=== PATIENT | male | born 1950 | race Caucasian/White ===

== ENCOUNTER 2021-07-20 11:56 | Emergency (ER) | payer OTHER ==
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
[2021-07-20 12:40] LABS: BASOPHILS # (AUTO) 0.1 10^3/uL (0.0-0.1); BASOPHILS % (AUTO) 0.6 %; EOSINOPHILS % (AUTO) 0.3 %; HCT - HEMATOCRIT 45.1 % (42.0-52.0); HGB - HEMOGLOBIN 14.6 g/dL (14.0-18.0); LYMPHOCYTES # (AUTO) 0.8 10^3/uL (1.5-3.5); LYMPHOCYTES % (AUTO) 8.3 %; MEAN CORPUSCULAR HEMOGLOBIN 30.9 pg (27.0-31.0); MEAN CORPUSCULAR HGB CONC 32.4 g/dL (32.0-36.0); MEAN CORPUSCULAR VOLUME 95.6 fL (80.0-94.0); MONOCYTES % (AUTO) 10.5 %; NEUTROPHILS # (AUTO) 7.3 10^3/uL (1.5-6.6); NEUTROPHILS % (AUTO) 79.9 %; PLT - PLATELET COUNT 194 10^3/uL (130-450); RED BLOOD COUNT 4.72 10^6/uL (4.70-6.10); RED CELL DISTRIBUTION WIDTH 13.4 % (12.0-15.0); WHITE BLOOD COUNT 9.1 x10^3/uL (4.8-10.8)
[2021-07-20 12:51] LABS: ALBUMIN 4.5 g/dL (3.2-5.5); ALBUMIN/GLOBULIN RATIO 1.6 (1.0-2.2); BILIRUBIN,TOTAL 1.1 mg/dL (0.2-1.0); CALCIUM 10.1 mg/dL (8.5-10.3); CREATININE 1.1 mg/dL (0.6-1.2); POTASSIUM 3.9 mmol/L (3.5-5.0); TOTAL PROTEIN 7.3 g/dL (6.7-8.2)
--- NOTE | 2021-07-20 13:31 | XRAY Report ---
PROCEDURE: Chest 1 View X-Ray INDICATIONS: Chest Pain TECHNIQUE: One view of the chest was acquired. COMPARISON: Prior chest x-ray report 11/30/2009. Images not available. FINDINGS: Surgical changes and devices: None. Lungs and pleura: No pleural effusions or pneumothorax. Lungs are clear. Mediastinum: Mediastinal contours appear normal. Heart size is normal. Atherosclerotic vascular ca lcification noted in the aortic arch. Bones and chest wall: No suspicious bony lesions. Overlying soft tissues appear unremarkable. IMPRESSION: No acute cardiopulmonary findings Reviewed by: Hilton Bullock MD on 07/20/2021 12:30 PM [place] Approved by: Hilton Bullock MD on 07/20/2021 12:30 PM [facility] Station ID: [id number]
[2021-07-20 13:41] LABS: INR 1.6 (0.8-1.2); PT - PROTHROMBIN TIME 17.8 secs (9.9-12.6)
[2021-07-20] MEDS ORDERED: HEPARIN 25000UNITS/500ML (D5W) 25,000 UNIT/500 ML BAG IV SCH (14:00)
[2021-07-20 14:51] LABS: B. PARAPERTUSSIS- RESP PCR PAN NOT DETECTED; B. PERTUSSIS- RESP PCR PANEL NOT DETECTED; C. PNEUMONIAE- RESP PCR PANEL NOT DETECTED; CORONAVIRUS 229E-RESP PCR NOT DETECTED; CORONAVIRUS HKU1-RESP PCR NOT DETECTED; CORONAVIRUS NL63-RESP PCR NOT DETECTED; CORONAVIRUS OC43-RESP PCR NOT DETECTED; HUMAN METAPNEUMOVIRUS NOT DETECTED; INFLUENZA A- RESP PCR PANEL NOT DETECTED; INFLUENZA B - RESP PCR PANEL NOT DETECTED; M. PNEUMONIAE- RESP PCR PANEL NOT DETECTED; PARAINFLUENZA VIRUS 1 NOT DETECTED; PARAINFLUENZA VIRUS 2 NOT DETECTED; PARAINFLUENZA VIRUS 3 NOT DETECTED; PARAINFLUENZA VIRUS 4 NOT DETECTED; RHINOVIRUS/ENTEROVIRUS DETECTED; RSV- RESP PCR PANEL NOT DETECTED; SARS-CoV-2 -RESP PCR PANEL NOT DETECTED
[2021-07-20 15:39] LABS: BILIRUBIN,URINE NEGATIVE (NEGATIVE); GLUCOSE, URINE (UA) NEGATIVE (NEGATIVE); KETONES,URINE (UA) 15 mg/dL (NEGATIVE); LEUKOCYTE ESTERASE, URINE NEGATIVE (NEGATIVE); NITRITE,URINE NEGATIVE (NEGATIVE); OCCULT BLOOD,URINE TRACE-INTA (NEGATIVE); PROTEIN,URINE NEGATIVE (NEGATIVE); UROBILINOGEN,URINE 0.2 (NORMAL) E.U./dL (NORMAL)
[2021-07-20 15:40] LABS: CLARITY,URINE CLEAR (CLEAR)
[2021-07-20 17:10] VITALS: BP 125/86
== END 2021-07-20 17:50 | disposition short-term general hospital (02) ==
LOC: ED 11:56
DX: I21.4 Non-ST elevation (NSTEMI) myocardial infarction (principal); I48.11 Longstanding persistent atrial fibrillation; I10 Essential (primary) hypertension; C85.90 Non-Hodgkin lymphoma, unspecified, unspecified site; Z20.822 Contact with and (suspected) exposure to COVID-19; Z79.899 Other long term (current) drug therapy
CPT/HCPCS: 0202U; 36415; 71045; 80053; 81003; 83690; 83880; 84484; 85025; 85610; 93005; 96365; 96366; 96376; 99284; 99285; 81001; 87086

== ENCOUNTER 2021-07-20 17:51 | Outpatient (CLI) | payer OTHER | END 2021-07-20 17:52 | disposition short-term general hospital (02) | LOC: EMS 17:51 | PROVIDERS: ATTEND Registered Nurse | DX: I21.4 Non-ST elevation (NSTEMI) myocardial infarction (principal) | CPT/HCPCS: A0425; A0426 ==

== ENCOUNTER 2021-07-30 11:08 | Emergency (ER) | payer OTHER ==
[2021-07-30] MEDS ORDERED: SODIUM CHLORIDE 0.9% 500 ML IV STA (12:00)
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
[2021-07-30 12:34] LABS: BASOPHILS # (AUTO) 0.1 10^3/uL (0.0-0.1); BASOPHILS % (AUTO) 0.6 %; EOSINOPHILS # (AUTO) 0.2 10^3/uL (0.0-0.7); EOSINOPHILS % (AUTO) 1.9 %; HCT - HEMATOCRIT 43.5 % (42.0-52.0); HGB - HEMOGLOBIN 14.1 g/dL (14.0-18.0); LYMPHOCYTES # (AUTO) 1.4 10^3/uL (1.5-3.5); LYMPHOCYTES % (AUTO) 12.8 %; MEAN CORPUSCULAR HEMOGLOBIN 30.5 pg (27.0-31.0); MEAN CORPUSCULAR HGB CONC 32.4 g/dL (32.0-36.0); MEAN CORPUSCULAR VOLUME 94.2 fL (80.0-94.0); MEAN PLATELET VOLUME 10.1 fL (7.4-11.4); MONOCYTES # (AUTO) 0.9 10^3/uL (0.0-1.0); MONOCYTES % (AUTO) 8.3 %; NEUTROPHILS % (AUTO) 75.6 %; PLT - PLATELET COUNT 200 10^3/uL (130-450); RED BLOOD COUNT 4.62 10^6/uL (4.70-6.10); RED CELL DISTRIBUTION WIDTH 13.3 % (12.0-15.0); WHITE BLOOD COUNT 10.6 x10^3/uL (4.8-10.8)
--- NOTE | 2021-07-30 12:42 | XRAY Report ---
PROCEDURE: Chest 1 View X-Ray INDICATIONS: lightheaded s/p cardiac stent TECHNIQUE: One view of the chest was acquired. COMPARISON: 07/20/2021 FINDINGS: Surgical changes and devices: None. Lungs and pleura: No pleural effusions or pneumothorax. Lungs are clear. Mediastinum: Mediastinal contours appear normal. Heart size is normal. Bones and chest wall: No suspicious bony lesions. Overlying soft tissues appear unremarkable. IMPRESSION: Chest without acute cardiopulmonary abnormalities. Reviewed by: Ceasar Hood MD on 07/30/2021 12:41 PM PST Approved by: Ceasar Hood MD on 07/30/2021 12:41 PM PST Station ID: [id number]
[2021-07-30 12:49] LABS: ALBUMIN/GLOBULIN RATIO 1.5 (1.0-2.2); CALCIUM 9.3 mg/dL (8.5-10.3); POTASSIUM 3.2 mmol/L (3.5-5.0); TOTAL PROTEIN 6.6 g/dL (6.7-8.2)
[2021-07-30 13:30] VITALS: BP 146/89
== END 2021-07-30 13:34 | disposition home or self-care (01) ==
LOC: ED 11:08
DX: R42 Dizziness and giddiness (principal); I48.91 Unspecified atrial fibrillation; Z95.5 Presence of coronary angioplasty implant and graft; Z91.138 Patient's unintentional underdosing of medication regimen for other reason
CPT/HCPCS: 36415; 80053; 85025; 93005; 96360; 99283

== ENCOUNTER 2022-06-19 14:33 | Outpatient (CLI) | payer OTHER | END 2022-06-19 14:34 | disposition critical access hospital (66) | LOC: EMS 14:33 | DX: R53.1 Weakness (principal); R26.81 Unsteadiness on feet; W18.39XA Other fall on same level, initial encounter; Y93.01 Activity, walking, marching and hiking; Y92.414 Local residential or business street as the place of occurrence of the external cause; Z79.01 Long term (current) use of anticoagulants ==

== ENCOUNTER 2022-06-19 14:41 | Emergency (ER) | payer OTHER ==
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
[2022-06-19 15:00] LABS: BASOPHILS % (AUTO) 0.6 %; EOSINOPHILS % (AUTO) 0.5 %; HCT - HEMATOCRIT 43.6 % (42.0-52.0); HGB - HEMOGLOBIN 13.8 g/dL (14.0-18.0); LYMPHOCYTES # (AUTO) 0.8 10^3/uL (1.5-3.5); LYMPHOCYTES % (AUTO) 12.8 %; MEAN CORPUSCULAR HEMOGLOBIN 29.9 pg (27.0-31.0); MEAN CORPUSCULAR HGB CONC 31.7 g/dL (32.0-36.0); MEAN CORPUSCULAR VOLUME 94.4 fL (80.0-94.0); MEAN PLATELET VOLUME 10.7 fL (7.4-11.4); MONOCYTES # (AUTO) 0.6 10^3/uL (0.0-1.0); MONOCYTES % (AUTO) 9.2 %; NEUTROPHILS # (AUTO) 4.9 10^3/uL (1.5-6.6); NEUTROPHILS % (AUTO) 76.4 %; PLT - PLATELET COUNT 165 10^3/uL (130-450); RED BLOOD COUNT 4.62 10^6/uL (4.70-6.10); RED CELL DISTRIBUTION WIDTH 16.2 % (12.0-15.0); WHITE BLOOD COUNT 6.4 x10^3/uL (4.8-10.8)
[2022-06-19 15:13] LABS: ALBUMIN 4.4 g/dL (3.2-5.5); ALBUMIN/GLOBULIN RATIO 1.6 (1.0-2.2); BILIRUBIN,TOTAL 1.3 mg/dL (0.2-1.0); CALCIUM 9.7 mg/dL (8.5-10.3); CREATININE 1.1 mg/dL (0.6-1.2); MAGNESIUM 2.1 mg/dL (1.7-2.8); POTASSIUM 3.5 mmol/L (3.5-5.0); TOTAL PROTEIN 7.1 g/dL (6.7-8.2)
[2022-06-19] MEDS ORDERED: iohexoL-300 100 ML VIAL ONE (15:27)
[2022-06-19] MEDS ORDERED: iohexoL-300 100 ML VIAL IVP ONE (15:59)
--- NOTE | 2022-06-19 16:13 | CT Report ---
PROCEDURE: Abdomen/Pelvis W INDICATIONS: IV only, abd pain CONTRAST: IV CONTRAST: Optiray 320 ml: 100 PO CONTRAST: *NO PO CONTRAST TECHNIQUE: After the administration of intravenous contrast, 5 mm thick sections acquired from the diaphragms to the symphysis. 5 mm thick coronal and sagittal reformats were acquired. For radiation dose reducti on, the following was used: automated exposure control, adjustment of mA and/or kV according to mitzy ent size. COMPARISON: None. FINDINGS: Image quality: Excellent. ABDOMEN: Lung bases: Patchy pulmonary radiopacities are partially visualized at the anterior base of the right lung. Left lung is clear. Heart is normal size. No pericardial effusion. Solid organs: Liver and spleen are normal in size and enhancement. Gallbladder is unremarkable Rob iary system is non dilated. Pancreas enhances normally. No adrenal nodules. Kidneys demonstrate no rmal size and enhancement, without hydronephrosis. Peritoneum and bowel: Bowel loops demonstrate normal wall thickness and caliber. There are scattered colonic diverticular outpouchings. No mucosal thickening or pericolonic fat stranding to suggest acu te diverticulitis. No free fluid or air. The appendix is not visualized; however there is no fat stra nding or right lower quadrant free fluid to suggest acute appendicitis. Nodes and vessels: No retroperitoneal or mesenteric adenopathy by size criteria. Aorta and inferior vena cava are normal in size. Miscellaneous: No ventral hernias. PELVIS: Genitourinary: Bladder wall thickness is normal. Miscellaneous: No inguinal adenopathy. There is a small right and a moderate left fat-containing ing uinal hernia. Bones: No suspicious bony lesions. No vertebral body compression fractures. IMPRESSION: 1. No acute intra-abdominal findings. Diverticulosis. No acute diverticulitis. Her graft 2. The appendix is not visualized; however there are no ancillary findings to suggest acute appendici tis. Reviewed by: Carol Busby MD on 06/19/2022 4:12 PM PDT Approved by: Carol Busby MD on 06/19/2022 4:12 PM PDT Station ID: [id number]
--- NOTE | 2022-06-19 16:22 | CT Report ---
PROCEDURE: HEAD WO INDICATIONS: head inj TECHNIQUE: Noncontrast 4.5 mm thick angled axial sections acquired from the foramen magnum to the vertex. For r adiation dose reduction, the following was used: automated exposure control, adjustment of mA and/or kV according to patient size. COMPARISON: None. FINDINGS: Image quality: Excellent. CSF spaces: Basal cisterns are patent. No extra-axial fluid collections. Ventricles are normal in size and shape. Brain: No midline shift. No intracranial masses or hemorrhage. Blanca-white matter interface is norm al. There is global volume loss and extensive deep and periventricular white matter changes. Skull and face: Calvarium and visualized facial bones are intact, without suspicious lesions. Sinuses: Visualized sinuses and mastoids are clear. IMPRESSION: 1. No acute intracranial findings. 2. Findings likely associated with chronic microvascular ischemic changes. Reviewed by: Carol Busby MD on 06/19/2022 4:20 PM PDT Approved by: Carol Busby MD on 06/19/2022 4:20 PM PDT Station ID: [id number]
[2022-06-19 17:01] VITALS: BP 164/107
== END 2022-06-19 17:06 | disposition home or self-care (01) ==
LOC: EDUNIT# → ED 14:41
DX: E86.0 Dehydration (principal); R53.1 Weakness; S50.12XA Contusion of left forearm, initial encounter; S50.11XA Contusion of right forearm, initial encounter; W17.89XA Other fall from one level to another, initial encounter; Y93.01 Activity, walking, marching and hiking; Y92.828 Other wilderness area as the place of occurrence of the external cause; R10.13 Epigastric pain; I48.91 Unspecified atrial fibrillation; I49.3 Ventricular premature depolarization; I45.10 Unspecified right bundle-branch block; I25.10 Atherosclerotic heart disease of native coronary artery without angina pectoris; Z95.5 Presence of coronary angioplasty implant and graft; Z85.72 Personal history of non-Hodgkin lymphomas; Z79.899 Other long term (current) drug therapy
CPT/HCPCS: 36415; 70450; 74177; 80053; 83735; 85025; 93005; 99282; 99284; Q9967

== ENCOUNTER 2023-01-16 12:53 | Outpatient (CLI) | payer OTHER | END 2023-01-16 23:59 | disposition critical access hospital (66) | LOC: EMS 12:53 | DX: R42 Dizziness and giddiness (principal); R47.81 Slurred speech; R53.83 Other fatigue | CPT/HCPCS: A0425; A0429 ==

== ENCOUNTER 2023-01-16 13:18 | Inpatient (IN) | payer OTHER ==
--- NOTE | 2023-01-16 13:19 | ED Physician Documentation ---
PD HPI FOCAL NEURO - Stated complaint Stated Complaint: DIZZINESS - History obtained from History obtained from: Patient, EMS (Patient not able to give history himself due to altered mentation. EMS states they were called for patient at the library with altered mentation and slurred speech. They found him undulating level of alertness. No focal weakness.) - History of Present Illness Timing - onset: Today (Unclear how long the symptoms have been undulating. He was noted at the library to seem reasonable and then be sleepy/lethargic approximately 1230. EMS notes he was alert on route here and talkative. Now seems sleepy/ slurred speech again.) Timing - duration: Hours Timing - details: Waxing and waning Severity of deficit: Moderate Weakness: No: Face, Arm, Leg Numbness: No: Face, Arm, Leg Associated symptoms: No: Nausea / vomiting, Head injury (he denies head injury, but is drowsy so not clearly reliable answer.) Review of Systems Constitutional: denies: Fever, Chills Nose: denies: Rhinorrhea / runny nose, Congestion Throat: denies: Sore throat Respiratory: reports: Dyspnea (mild), Cough. denies: Wheezing GI: denies: Abdominal Pain, Nausea, Vomiting, Diarrhea Neurologic: reports: Generalized weakness (onset today). 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 Sees oncology at [facility]. ) - Past Surgical History Cardiovascular: Coronary stent - Present Medications Home Medications: Ambulatory Orders Medication Instructions Recorded Confirmed Albuterol Sulf [Ventolin Hfa 1 - 2 puffs INH Q4HR PRN #1 each 01/16/23 Inhaler] cephALEXin [Keflex] 500 mg PO TID 5 Days #15 cap 01/16/23 - Allergies Allergies/Adverse Reactions: Allergies Allergy/AdvReac Type Severity Reaction Status Date / Time No Known Drug Allergies Allergy Verified 07/30/21 11:25 - Social History Does the pt smoke?: No Smoking Status: Never smoker PD ED PE NORMAL - Vitals Vital signs reviewed: Yes - General General: Well developed/nourished. No: Alert and oriented X 3 (somnolent but rousable to tactile and voice. Some slurring of speech which seems alertness related and not dysarthria. ) - HEENT HEENT: Atraumatic, Pharynx benign - Neck Neck: Supple, no meningeal sign, No adenopathy, No bruit - Cardiac Cardiac: RRR, No murmur - Respiratory Respiratory: Clear bilaterally - Abdomen Abdomen: Soft, Non tender, Non distended - Derm Derm: Normal color, Warm and dry - Extremities Extremities: Normal ROM s pain, No edema, No calf tenderness / cord - Neuro Neuro: Alert and oriented X 3, No motor deficit, Normal speech NIHSS - Level of Consciousness Level of consciousness: (1) Not alert, but arousable by minor stimulation to obey, or answer LOC Questions: (1) Answers one Q correctly LOC Commands: (0) Performs both correctly - Visual Visual: (0) No loss - Facial Palsy Facial Palsy: (0) Normal, symmetrical movement - Motor Arms (both separate) Motor Arm (right): (0) No drift Motor Arm (left): (0) No drift - Motor Legs (both separate) Motor Leg (right): (0) No drift Motor Leg (left): (0) No drift - Limb Ataxia Limb Ataxia: (2) Present in 2 limbs - Sensory Sensory: (0) Normal - Best Language Best Language: (0) No aphasia - Dysarthria Dysarthria: (1) Ekdf-vs-vgypppjz dysarthria - Extinction and Inattention (formally neg Extinction and inattention: (0) No abnormality Results - Vitals Vitals: Vital Signs - 24 hr 01/16/23 01/16/23 01/16/23 13:25 14:51 16:00 Temperature 36.6 C Heart Rate 73 73 69 Respiratory 18 18 16 Rate Blood Pressure 151/117 H 174/95 H 172/135 H O2 Saturation 96 97 98 01/16/23 01/16/23 16:27 17:00 Temperature Heart Rate 58 L 77 Respiratory 16 16 Rate Blood Pressure 168/126 H 205/103 H O2 Saturation 100 100 Oxygen O2 Source Room air - Labs Labs: Laboratory Tests 01/16/23 01/16/23 01/16/23 14:06 14:13 14:13 WBC 5.4 RBC 4.75 Hgb 14.4 Hct 44.5 MCV 93.7 MCH 30.3 MCHC 32.4 RDW 14.0 Plt Count 153 MPV 10.0 Neut # (Auto) 3.5 Lymph # (Auto) 1.1 L Tucker # (Auto) 0.8 Eos # (Auto) 0.0 Baso # (Auto) 0.0 Absolute Nucleated RBC 0.00 Nucleated RBC % 0.0 Sodium 135 Potassium 3.9 Chloride 101 Carbon Dioxide 25 Anion Gap 9.0 BUN 16 Creatinine 1.1 Estimated GFR (MDRD) 65 L Glucose 108 H POC Whole Bld Glucose Calcium 8.8 Magnesium 1.9 Total Bilirubin 1.0 AST 21 ALT 19 Alkaline Phosphatase 72 Total Protein 6.5 L Albumin 4.0 Globulin 2.5 Albumin/Globulin Ratio 1.6 Lipase 53 H TSH Urine Color YELLOW Urine Clarity SL. CLOUDY Urine pH 6.5 Ur Specific [place] <=1.005 Urine Protein NEGATIVE Urine Glucose (UA) NEGATIVE Urine Ketones NEGATIVE Urine Occult Blood TRACE-INTA Urine Nitrite NEGATIVE Urine Bilirubin NEGATIVE Urine Urobilinogen 0.2 (NORMAL) Ur Leukocyte Esterase LARGE H Urine RBC 0-5 Urine WBC >25 H Ur Squamous Epith Cells NONE SEEN Urine Bacteria Few Ur Microscopic Review INDICATED Urine Culture Comments INDICATED Urine Opiates Screen NEGATIVE Ur Oxycodone Screen NEGATIVE Urine Methadone Screen NEGATIVE Ur Propoxyphene Screen NEGATIVE Ur Barbiturates Screen NEGATIVE Ur Tricyclics Screen NEGATIVE Ur Phencyclidine Scrn NEGATIVE Ur Amphetamine Screen NEGATIVE U Methamphetamines Scrn NEGATIVE U Benzodiazepines Scrn NEGATIVE Urine Cocaine Screen NEGATIVE U Cannabinoids Screen NEGATIVE Ethyl Alcohol < 5.0 01/16/23 01/16/23 14:13 14:13 WBC RBC Hgb Hct MCV MCH MCHC RDW Plt Count MPV Neut # (Auto) Lymph # (Auto) Tucker # (Auto) Eos # (Auto) Baso # (Auto) Absolute Nucleated RBC Nucleated RBC % Sodium Potassium Chloride Carbon Dioxide Anion Gap BUN Creatinine Estimated GFR (MDRD) Glucose POC Whole Bld Glucose 88 Calcium Magnesium Total Bilirubin AST ALT Alkaline Phosphatase Total Protein Albumin Globulin Albumin/Globulin Ratio Lipase TSH 4.16 Urine Color Urine Clarity Urine pH Ur Specific [place] Urine Protein Urine Glucose (UA) Urine Ketones Urine Occult Blood Urine Nitrite Urine Bilirubin Urine Urobilinogen Ur Leukocyte Esterase Urine RBC Urine WBC Ur Squamous Epith Cells Urine Bacteria Ur Microscopic Review Urine Culture Comments Urine Opiates Screen Ur Oxycodone Screen Urine Methadone Screen Ur Propoxyphene Screen Ur Barbiturates Screen Ur Tricyclics Screen Ur Phencyclidine Scrn Ur Amphetamine Screen U Methamphetamines Scrn U Benzodiazepines Scrn Urine Cocaine Screen U Cannabinoids Screen Ethyl Alcohol PD Medical Decision Making - ED course Complexity details: reviewed results, considered differential (But isThe patient seems more lethargic and sleepy rousable to just tactile stimulus and calling his name. I do not see a focal deficit at this time. He does have slurred speech but seems more related to alertness.), d/w patient ED course: The patient does have altered mentation. No unilateral findings. However it is appropriate to scan his head for signs of bleeding or swelling or injury as well as any vascular occlusions. We will also check metabolic aspect such as sodium and blood sugar and alcohol level as well as a U tox. The patient had CT of the head with angiography. The timing was apparently slightly off but the radiologist reads it as no obvious stenoses or blockages. There are some mild stenoses in the intracranial portion of the carotid. No signs of bleeding or mass effect. Reevaluation the patient upon returning from that shows him to be awake and alert and conversant. No focal neurodeficits. The previous noted somnolence and lethargy is improved and he is fully conversant and talking details of the day. He states he noted initially feeling off balance and then a bit confused while going to the [employer] for groceries and then more so going to the library. That was when EMS was called. At this point he has no neurodeficits. However I do not have an alternate explanation for the symptoms he had. If presented not as much as TIA or stroke given the somnolence but still would be a consideration. At this point some blood tests are still pending. His alcohol level is 0 and he denies any substance use. He states he has had some congestion and had used an expectorant but denied any cough medicine or NyQuil or dextromethorphan containing medications. The patient lives alone. At this point he seems well alert but had been having undulating level of alertness over the last few hours. I do not feel comfortable discharging at this point without longer. Of normalcy. Other consideration is are MRI is unavailable today but whether an MRI would be fully conclusive as far as small stroke. Again not sure whether to count this as a TIA type episode but there was no other obvious cause. Recheck of the patient at 1645 shows him to still be awake and alert and conversant without any focal neural deficits. He is complaining a little bit of some shortness of breath and I listen to him and there is some mild expiratory scattered wheezes. He states he had a some mild cough and congestion recently. We can get a chest x-ray to evaluate and also give a albuterol treatment. He is not normally asthmatic @1707, I talked with the patient again. He is still awake and conversant. He is talking on the phone with a friend. He states the person would be able to come pick him up. He has not had any altered mentation or abnormal vitals over the last many hours. He did have a mild dyspnea. It he states he does have allergies. It is possible he may be developing a mild viral illness or it may be the allergies. He does not usually use an inhaler. I can prescribe 1. There was a suggestion of bladder infection. Shared decision was to empirically treat for now pending the urine culture. I asked about his medications. He does not have a list but he states his medications include blood pressure medicine, apixaban blood thinner, cholesterol medicine, and a medication for suppressive for lymphoma. He denies in particular any seizure medicines, anxiolytics, sleep medicines, and again no recreational drug use that might have accounted for the sedative symptoms he had earlier. At this point it has been a reasonable period of time without any abnormal alertness or return of symptoms. He is comfortable heading home. I feel its been appropriately long enough with a normal exam. His blood pressure most recent reading is now a bit elevated. It had been good earlier. He had not had his blood pressure medicines this morning. I do not feel this is related and he should take his usual medicines when he gets home. With regard to the potential of TIA, even though it does not sound that way necessarily, he is already maximally treated with a DOAC and anticholesterol medicine etc. Assessed the patient with thoughts of discharge home. However ambulated him bedside and in the room showed a fairly unsteady stance and gait. Still no lateralized weakness. He is fully awake and conversant. However he states this is quite unusual for him and he typically walks about a mile a day. At this point he does not seem stable for discharge. We will have him here in the ER. There are no beds available at our hospital so we will do an observation type process maintaining in the ER with intention of MRI brain tomorrow to look for stroke injury and also to evaluate with PT and social work. Departure - Departure Clinical Impression: Bacteriuria with pyuria, Acute dyspnea, Ataxia Altered mental status Qualifiers: Altered mental status type: delirium Qualified Code(s): R41.0 - Disorientation, unspecified Condition: Stable Record reviewed to determine appropriate education?: Yes Instructions: ED Altered Loc Prescriptions: Albuterol Sulf [Ventolin Hfa Inhaler] 1 - 2 puffs INH Q4HR PRN #1 each PRN Reason: Shortness Of Air/Wheezing cephALEXin [Keflex] 500 mg PO TID 5 Days #15 cap Comments: Its unclear the cause of your symptoms earlier. We do not have any signs or findings to suggest a more serious problem. No signs of intracranial bleeding, blood flow blockage, tumors etc. Your blood test did not show any abnormality to account for your altered mentation. There was not any medications or such that you took that may give you the symptoms. At this point I cannot account for it. Perhaps it was a level of dehydration or such. Be sure to stay hydrated and continue usual medications. Your blood pressure initially was good here but has crept up higher and likely relates to not having had your morning medicines. Its okay to take those when you get home. There was a suggestion of bladder infection. We can go with some antibiotics pending the urine culture. You are having some wheezing. This could be allergies. I prescribed an inhaler to use periodically if needed. I do not feel either of these are significant enough to have accounted for your symptoms earlier. Follow-up with your primary care. Return if recurring episodes of symptoms or anything else of concern. However at this point you seem to have been doing well for long enough a feel it less likely and unlikely that he will have further problems today tomorrow etc. I sent your prescriptions to [facility] pharmacy.
[2023-01-16 14:11] LABS: MUDS CUTOFF CONCENTRATIONS CUTOFF CONC BELOW:
[2023-01-16 14:14] LABS: BILIRUBIN,URINE NEGATIVE (NEGATIVE); GLUCOSE, URINE (UA) NEGATIVE (NEGATIVE); KETONES,URINE (UA) NEGATIVE (NEGATIVE); LEUKOCYTE ESTERASE, URINE LARGE (NEGATIVE); NITRITE,URINE NEGATIVE (NEGATIVE); OCCULT BLOOD,URINE TRACE-INTA (NEGATIVE); PH,URINE 6.5 PH (5.0-7.5); PROTEIN,URINE NEGATIVE (NEGATIVE); UROBILINOGEN,URINE 0.2 (NORMAL) E.U./dL (NORMAL)
[2023-01-16 14:16] LABS: CLARITY,URINE SL. CLOUDY (CLEAR)
[2023-01-16 14:17] LABS: BASOPHILS % (AUTO) 0.4 %; EOSINOPHILS % (AUTO) 0.2 %; HCT - HEMATOCRIT 44.5 % (42.0-52.0); HGB - HEMOGLOBIN 14.4 g/dL (14.0-18.0); LYMPHOCYTES # (AUTO) 1.1 10^3/uL (1.5-3.5); LYMPHOCYTES % (AUTO) 19.9 %; MEAN CORPUSCULAR HEMOGLOBIN 30.3 pg (27.0-31.0); MEAN CORPUSCULAR HGB CONC 32.4 g/dL (32.0-36.0); MEAN CORPUSCULAR VOLUME 93.7 fL (80.0-94.0); MONOCYTES # (AUTO) 0.8 10^3/uL (0.0-1.0); MONOCYTES % (AUTO) 13.8 %; NEUTROPHILS # (AUTO) 3.5 10^3/uL (1.5-6.6); NEUTROPHILS % (AUTO) 65.3 %; PLT - PLATELET COUNT 153 10^3/uL (130-450); RED BLOOD COUNT 4.75 10^6/uL (4.70-6.10); WHITE BLOOD COUNT 5.4 x10^3/uL (4.8-10.8)
--- NOTE | 2023-01-16 14:20 | CT Report ---
PROCEDURE: ANGIO HEAD W/WO INDICATIONS: altered mental status/lethargic CONTRAST: 160ml omni 300 TECHNIQUE: Precontrast 4.5 mm thick angled axial sections acquired from the foramen magnum to the vertex. Afte r the administration of intravenous contrast, 1 mm thick sections acquired through the [place] of Will is. Postcontrast 4.5 mm thick sections then re-acquired from the foramen magnum to the vertex. 3-di mensional vtrufms-aythzblfa-odxtaqctde (MIP) and/or volume rendering reformats were acquired of the c entral intracranial vasculature. For radiation dose reduction, the following was used: automated ex posure control, adjustment of mA and/or kV according to patient size. COMPARISON: 06/19/2022 FINDINGS: Image quality: Study is limited due to timing of intravascular contrast administration. There is limi juan francisco opacification of the intracranial arterial vasculature. Anterior circulation: Intracranial internal carotid arteries are normal in size and flow. The flow within the paired anterior cerebral arteries is visualized. The flow within the middle cerebral estela chloe is visualized and symmetric. The anterior communicating artery is seen. No aneurysms are seen. Advanced atherosclerotic calcifications are noted in the intracranial segments of the internal carot id arteries as well as the vertebral arteries. Atherosclerotic calcifications of the middle cerebral arteries are also noted. Moderate stenosis identified in the bilateral intracranial segments of the i nternal carotid arteries within the cavernous and supraclinoid segments. Posterior circulation: Visualized portions of the vertebral arteries demonstrate normal caliber, and join to form a normal appearing basilar artery. Flow within the posterior cerebral arteries is norm al and symmetric. No aneurysms are seen. CSF spaces: Ventricles are normal in size and shape. Basal cisterns are patent. No extra-axial flu id collections. Brain: No midline shift. No intracranial masses or hemorrhage. No mass effect. Blanca-white matter i nterface is normal. There cerebral volume loss for age with resultant ventricular and sulcal prominen ce. There are periventricular and deep white matter chronic small vessel ischemic changes. Extensive, dense atherosclerotic calcifications are noted in the intracranial segments of the bilateral interna l carotid arteries as well as the vertebral arteries. These do not appear significantly changed. Skull and face: Calvarium and facial bones appear intact, without suspicious lesions. Sinuses: Visualized sinuses and mastoids are clear. IMPRESSION: CT head without acute intracranial abnormalities. Moderate age-related senescent changes and sequela of chronic small vessel ischemic disease. Extensive atherosclerotic vascular calcification seen throughout the intracranial arterial vasculatur e. Limited evaluation of the intracranial arterial vasculature secondary to timing of contrast administr ation. There is moderate stenosis involving the intracranial segments of the internal carotid arterie s. No evidence to suggest occlusion. No aneurysm or dissection identified. Reviewed by: Ceasar Hood MD on 01/16/2023 2:18 PM PDT Approved by: Ceasar Hood MD on 01/16/2023 2:18 PM PDT Station ID: [id number]
--- NOTE | 2023-01-16 14:26 | CT Report ---
PROCEDURE: ANGIO NECK W INDICATIONS: altered mental status, slurred speech CONTRAST: 160ml omni 300 TECHNIQUE: After the administration of intravenous contrast, 1.5 mm axial sections acquired from the aortic arch to the [place] of Franz. Coronal 3-D maximum intensity projection (MIP) and/or volume rendering ref ormats were then performed. For radiation dose reduction, the following was used: automated exposur e control, adjustment of mA and/or kV according to patient size. COMPARISON: None. FINDINGS: Image quality: Diagnostic. Carotid system: The great vessels demonstrate a conventional anatomy as they arise from the aortic a rch. The origins of the common carotid arteries appear patent. Atherosclerotic calcifications noted in the aortic arch and carotid bifurcations. The common carotid arteries demonstrate normal calibers and courses. The bifurcation regions appear normal bilaterally. The internal carotid arteries demo nstrate normal caliber and course. Posterior circulation: The origins of the vertebral arteries appear patent. The more superior porti ons of the vertebral arteries demonstrate normal course and caliber. They join to form a normal appe aring basilar artery. Soft tissues: Visualized neck soft tissues demonstrate no suspicious abnormalities. The thyroid is normal in size and there are no incidental findings. Lung apices demonstrate no pneumothoraces. Bones: No suspicious bony lesions. Visualized cervical spine appears normally aligned. Multilevel cervical spondylosis. No acute compression fracture. IMPRESSION: Negative CT angiogram of the neck arterial vasculature without evidence for high-grade stenosis, occl usion, or dissection. Atherosclerotic vascular calcification seen throughout the neck. Multilevel cervical spondylosis. No acute compression fractures. The estimate of stenosis included in the report of the imaging study was calculated using the NASCET method CLINICAL RECOMMENDATION STATEMENTS: In patients <35 years with an ITN detected on CT, MRI, or extrathyroidal ultrasound, the Committee re commends further evaluation with dedicated thyroid ultrasound if the nodule is "e1 cm and has no susp icious imaging features, and if the patient has normal life expectancy. In patients "e35 years with an ITN detected on CT, MRI, or extrathyroidal ultrasound, the Committee r ecommends further evaluation with dedicated thyroid ultrasound if the nodule is "e1.5 cm and has no s uspicious imaging features, and if the patient has normal life expectancy. (ACR, 2014) Reviewed by: Ceasar Hood MD on 01/16/2023 2:25 PM PDT Approved by: Ceasar Hood MD on 01/16/2023 2:25 PM PDT Station ID: [id number]
[2023-01-16 14:28] LABS: AMPHETAMINE SCREEN,URINE NEGATIVE (NEGATIVE); BACTERIA,URINE Few /HPF (None Seen); BARBITURATE SCREEN,UR NEGATIVE (NEGATIVE); BENZODIAZEPINES SCREEN, URINE NEGATIVE (NEGATIVE); COCAINE SCREEN URINE NEGATIVE (NEGATIVE); METHADONE SCREEN, URINE NEGATIVE (NEGATIVE); METHAMPHETAMINES SCREEN, URINE NEGATIVE (NEGATIVE); OPIATE SCREEN, URINE NEGATIVE (NEGATIVE); OXYCODONE SCREEN, URINE NEGATIVE (NEGATIVE); PROPOXYPHENE SCREEN, URINE NEGATIVE (NEGATIVE); RBC,URINE 0-5 /HPF (0-5); SQUAMOUS EPITHELIAL CELL,UR NONE SEEN (<= Few); THC CANNABINOID SCREEN, URINE NEGATIVE (NEGATIVE); TRICYCLIC ANTIDEPRESSANT,URINE NEGATIVE (NEGATIVE); WBC,URINE >25 /HPF (0-3)
[2023-01-16 14:37] LABS: ALBUMIN/GLOBULIN RATIO 1.6 (1.0-2.2); ALKALINE PHOSPHATASE 72 IU/L (42-121); ALT ALANINE AMINOTRANSFERASE 19 IU/L (10-60); AST ASPARTATE AMINOTRANSFERASE 21 IU/L (10-42); BUN - BLOOD UREA NITROGEN 16 mg/dL (6-20); CALCIUM 8.8 mg/dL (8.5-10.3); CARBON DIOXIDE - CO2 25 mmol/L (21-32); CHLORIDE 101 mmol/L (101-111); CREATININE 1.1 mg/dL (0.6-1.2); ETOH - ETHANOL < 5.0 mg/dL; GFR - MDRD 65 (>89); GLUCOSE 108 mg/dL (70-100); LIPASE 53 U/L (22-51); MAGNESIUM 1.9 mg/dL (1.7-2.8); POTASSIUM 3.9 mmol/L (3.5-5.0); SODIUM 135 mmol/L (135-145); TOTAL PROTEIN 6.5 g/dL (6.7-8.2)
[2023-01-16] MEDS ORDERED: SODIUM CHLORIDE 0.9% 1,000 ML IV STA (15:26)
[2023-01-16] MEDS ORDERED: iohexoL-300 100 ML VIAL IVP ONE (15:53)
[2023-01-16] MEDS ORDERED: iohexoL-300 100 ML VIAL ONE (16:06)
[2023-01-16] MEDS ORDERED: ALBUTEROL NEB 2.5 MG/3 ML INH STA (16:45)
--- NOTE | 2023-01-16 17:04 | XRAY Report ---
PROCEDURE: Chest 1 View X-Ray INDICATIONS: dyspnea TECHNIQUE: One view of the chest was acquired. COMPARISON: 07/30/2021 FINDINGS: Surgical changes and devices: None. Lungs and pleura: No dense consolidation or pleural effusion. Mildly prominent interstitium. Low eloisa g volumes, limiting evaluation. No pleural effusions. Mediastinum: Mediastinal contours appear normal. Heart size is normal. Bones and chest wall: No suspicious bony lesions. Overlying soft tissues appear unremarkable. IMPRESSION: Mildly prominent interstitium, possibly edema or atypical infection. No dense consolidation or pleura l effusion. Consider future imaging surveillance to assess for resolution. Reviewed by: Jonah Orellana MD on 01/16/2023 5:03 PM PDT Approved by: Jonah Orellana MD on 01/16/2023 5:03 PM PDT Station ID: [id number]
[2023-01-16] MEDS ORDERED: cephALEXin 250 MG CAPSULE PO STA (17:06)
[2023-01-16] MEDS ORDERED: ACETAMINOPHEN 500 MG TABLET PO PRN (17:48)
[2023-01-16] MEDS ORDERED: ONDANSETRON 4 MG/2 ML VIAL IVP PRN (17:48)
[2023-01-16] MEDS: APIXABAN 5 MG TABLET PO SCH (21:50)
[2023-01-17 04:58] LABS: BASOPHILS % (AUTO) 0.5 %; EOSINOPHILS % (AUTO) 0.3 %; HCT - HEMATOCRIT 44.9 % (42.0-52.0); HGB - HEMOGLOBIN 14.7 g/dL (14.0-18.0); LYMPHOCYTES # (AUTO) 1.4 10^3/uL (1.5-3.5); LYMPHOCYTES % (AUTO) 22.3 %; MEAN CORPUSCULAR HEMOGLOBIN 30.6 pg (27.0-31.0); MEAN CORPUSCULAR HGB CONC 32.7 g/dL (32.0-36.0); MEAN CORPUSCULAR VOLUME 93.5 fL (80.0-94.0); MEAN PLATELET VOLUME 10.4 fL (7.4-11.4); MONOCYTES # (AUTO) 1.1 10^3/uL (0.0-1.0); MONOCYTES % (AUTO) 17.1 %; NEUTROPHILS # (AUTO) 3.8 10^3/uL (1.5-6.6); NEUTROPHILS % (AUTO) 59.6 %; PLT - PLATELET COUNT 141 10^3/uL (130-450); RED CELL DISTRIBUTION WIDTH 14.3 % (12.0-15.0); WHITE BLOOD COUNT 6.3 x10^3/uL (4.8-10.8)
[2023-01-17 05:06] LABS: CALCIUM 9.2 mg/dL (8.5-10.3); CREATININE 1.1 mg/dL (0.6-1.2); POTASSIUM 3.4 mmol/L (3.5-5.0)
[2023-01-17] MEDS ORDERED: PANTOPRAZOLE 40 MG TABLET PO SCH (07:00)
[2023-01-17] MEDS: APIXABAN 5 MG TABLET PO SCH (08:42)
[2023-01-17] MEDS ORDERED: cephALEXin 250 MG CAPSULE PO STA (08:43)
[2023-01-17] MEDS ORDERED: METOPROLOL SUCCINATE 25 MG TABLET PO SCH (09:00)
[2023-01-17] MEDS ORDERED: lisinopriL 5 MG TABLET PO SCH (09:00)
[2023-01-17] MEDS ORDERED: ATORVASTATIN 40 MG TABLET PO SCH (09:00)
[2023-01-17] MEDS ORDERED: SODIUM CHLORIDE 0.9% 1,000 ML IV STA (09:32)
--- NOTE | 2023-01-17 09:35 | ED Physician Documentation ---
ED Addendum - Addendum Addendum: 01/17/23 09:32 72-year-old male presenting to the emergency department after an episode [place]. The patient remains in the emergency department overnight as no beds are available in the hospital. He has an MRI of the head scheduled for today as well as evaluation by physical therapy and social work. The patient was not able to ambulate adequately at the conclusion of the visit yesterday. He does appear to have urinary tract infection and this is being treated with Keflex. He has not had urinary tract infection previously. The patient lives alone usually walks a mile a day does not have a local family. I evaluated the patient at the bedside. He does have some speech latency and delay in execution of motor commands as well as dry mucous membranes and tenting skin. I interrogated the inferior vena cava with POCUS and found him to have a 1.2 cm vessel consistent with a deficit of 1 L. He is administered further saline. 01/17/23 09:42 01/17/23 15:13 The patient required assistance to sit up in bed and to get out of bed. He appears weak and has evidence of urinary tract infection, dehydration, ataxia and general weakness. He is admitted to the hospital for further observation after MR scanning of his head did not demonstrate any evidence of infarct. Impression: Dehydration, urinary tract infection, ataxia, generalized weakness. Plan: patient admitted to the hospital for treatment of urinary tract infection and hydration.
--- NOTE | 2023-01-17 11:36 | MRI Report ---
PROCEDURE: BRAIN WO INDICATIONS: lethargy, uncoordintaed TECHNIQUE: Noncontrast axial T1 spin echo, axial T2 fast spin echo, sagittal and axial FLAIR, coronal T2 fast sp in echo, axial gradient echo, axial diffusion and ADC through the brain. COMPARISON: CT of the head dated 01/16/2023. FINDINGS: Image quality: Excellent. CSF Spaces: Basal cisterns are patent. No extra-axial fluid collections. Ventricles are normal in size and shape. Diffuse cerebral volume loss. Subcortical and periventricular T2/FLAIR signal consis tent with microvascular ischemic disease. Brain: No intracranial masses or hemorrhage. Blanca/white matter interface is normal. Brainstem appe ars normal. Diffusion-weighted images demonstrate no acute ischemic insult. No chronic ischemic ins ults. Normal intravascular flow voids are present. Skull and face: Calvarium has normal marrow signal. Orbits appear normal. Sinuses: Sinuses and mastoids are clear. IMPRESSION: 1. No acute intracranial abnormality. 2. Microvascular ischemic disease and age-related cerebral volume loss. Reviewed by: Colby Vaughan on 01/17/2023 11:35 AM PDT Approved by: Colby Vaughan on 01/17/2023 11:35 AM PDT Station ID: [id number]
[2023-01-17] MEDS ORDERED: SODIUM CHLORIDE FLUSH 0.9% 10 ML SYRINGE IVP PRN (12:16)
--- NOTE | 2023-01-17 13:21 | HISTORY & PHYSICAL EXAMINATION ---
Chief Complaint - Chief Complaint Chief Complaint: Speech difficulty and gait instability History of Present Illness - Admitted From Admitted From:: emergency room - History Obtained From Records Reviewed: Yes History obtained from: Patient and records - History of Present Illness HPI Comment/Other: Is a 72-year-old male with no complaints until yesterday was found having problems with gait instability and also slurred speech. He did complain of dizziness but does not admit to vertigo. He notes he has had no similar problems in the past. Urine tox screen and alcohol level were negativCT of head with angiography was negative. MRI was done day of admission without contrast and did not reveal any acute abnormalities. Patient was continuing to have the symptoms that he presented with while in the emergency room. There was no focal symptoms per se. Patient was found to have an abnormal urine analysis although did not have any urinary symptoms. His UA showed large leukocyte esterase 0-5 RBCs, urine RBC 0-5 urine squamous epithelial cells none urine bacteria few patient was started on oral Keflex for possible UTI. 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 Sees oncology at [place]. ) HEENT: reports: None Psych: reports: None Musculoskeletal: reports: None - Past Surgical History Cardiovascular: reports: Coronary stent - Family & Social History Living arrangement: At home Living Situation: Alone - Substance History Use: Uses substance without health or social issues: NONE - POLST Patient has POLST: No Meds/Allgy - Home Medications Home Medications: Ambulatory Orders Medication Instructions Recorded Confirmed Albuterol Sulf [Ventolin Hfa 1 - 2 puffs INH Q4HR PRN #1 each 01/16/23 Inhaler] cephALEXin [Keflex] 500 mg PO TID 5 Days #15 cap 01/16/23 - Allergies Allergies/Adverse Reactions: Allergies Allergy/AdvReac Type Severity Reaction Status Date / Time No Known Drug Allergies Allergy Verified 07/30/21 11:25 Exam - Vital Signs Reviewed Vital Signs: Yes Vital Signs: Vital Signs x48h Temp Pulse Pulse Resp BP BP Pulse Ox 01/17/23 13:17 36.4 C L 56 L 19 153/93 H 100 01/17/23 11:20 70 15 154/112 H 100 01/17/23 09:24 36.6 C 73 20 175/126 H 98 01/17/23 08:16 95 16 157/97 H 97 01/17/23 06:06 51 L 14 148/118 H 94 - Physical Exam General Appearance: positive: No acute distress Eyes Bilateral: positive: Normal inspection ENT: positive: Other (Poor dentition) Neck: positive: Nml inspection Respiratory: positive: No respiratory distress, Breath sounds nml Cardiovascular: positive: Regular rate & rhythm Abdomen: positive: Non-tender Back: positive: Nml inspection Skin: positive: No rash Extremities: positive: Full ROM Neurologic/Psychiatric: positive: Oriented x3, Mood/affect nml, Slurred/abnml speech, Other (Patient has finger-nose abnormal bilaterally with past-pointing right worse than left) Conclusion/Plan - Problem List (1) Ataxia Conclusion/Plan: Patient is having intermittent and persisting ataxia and unclear etiology at t his time. Her CT and CTA of head neck were negative per ER MD. MRI of brain without contrast revealed no acute findings. We will proceed with OT and physical therapy consults (2) Dysarthria Conclusion/Plan: Patient is having a persistent dysarthria at this time with negative imaging studies including CT CTA and MRI. We will get OT PT consult. (4) Bacteriuria with pyuria Conclusion/Plan: Continue with p.o. Keflex as patient really has no symptoms referable to UTI. Will await urine culture and sensitivities. (5) Atrial fibrillation Conclusion/Plan: Continue with patient's home medications once med reconciliation is completed. Continue with Eliquis anticoagulation which she takes at home as there were no acute findings on his imaging studies. Qualifiers: Atrial fibrillation type: unspecified Qualified Code(s): I48.91 - Unspecified atrial fibrillation - Lab Results Fish Bones: 01/17/23 04:53 01/17/23 04:53 - Diagnostic Imaging Results Diagnostic Imaging Results: positive: Final report reviewed
[2023-01-17] MEDS: SODIUM CHLORIDE FLUSH 0.9% 10 ML SYRINGE IVP SCH (16:54)
[2023-01-17] MEDS ORDERED: cephALEXin 250 MG CAPSULE PO SCH (21:00)
[2023-01-17] MEDS: AMOX/CLAV 875 MG/125 MG TABLET PO SCH (21:06)
[2023-01-18] MEDS: SODIUM CHLORIDE FLUSH 0.9% 10 ML SYRINGE IVP SCH ×3 (01:00→17:00)
[2023-01-18] MEDS: ACETAMINOPHEN 325 MG TABLET PO PRN ×2 (06:52→18:18)
[2023-01-18] MEDS: APIXABAN 5 MG TABLET PO SCH ×2 (08:49→20:21)
[2023-01-18] MEDS: ONDANSETRON ODT 4 MG TABLET TL PRN (08:49)
[2023-01-18] MEDS: AMOX/CLAV 875 MG/125 MG TABLET PO SCH (08:49)
[2023-01-18] MEDS ORDERED: iohexoL-300 100 ML VIAL ONE (13:07)
[2023-01-18] MEDS ORDERED: DIATR MEGLU/DIATRIZOATE SODIUM 120 ML BOTTLE ONE (13:07)
--- NOTE | 2023-01-18 14:34 | PROVIDER PROGRESS NOTE ---
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 Sees oncology at [place]. ) HEENT: reports: None Psych: reports: None Musculoskeletal: reports: None - Past Surgical History Cardiovascular: reports: Coronary stent - Family & Social History Living arrangement: At home Living Situation: Alone - Substance History Use: Uses substance without health or social issues: NONE - POLST Patient has POLST: No Meds/Allgy - Home Medications Home Medications: Ambulatory Orders Medication Instructions Recorded Confirmed Albuterol Sulf [Ventolin Hfa 1 - 2 puffs INH Q4HR PRN #1 each 01/16/23 Inhaler] cephALEXin [Keflex] 500 mg PO TID 5 Days #15 cap 01/16/23 - Allergies Allergies/Adverse Reactions: Allergies Allergy/AdvReac Type Severity Reaction Status Date / Time No Known Drug Allergies Allergy Verified 07/30/21 11:25 Exam - Vital Signs Reviewed Vital Signs: Yes Vital Signs: Vital Signs x48h Temp Pulse Pulse Resp BP BP Pulse Ox 01/17/23 13:17 36.4 C L 56 L 19 153/93 H 100 01/17/23 11:20 70 15 154/112 H 100 01/17/23 09:24 36.6 C 73 20 175/126 H 98 01/17/23 08:16 95 16 157/97 H 97 01/17/23 06:06 51 L 14 148/118 H 94 - Physical Exam General Appearance: positive: No acute distress Eyes Bilateral: positive: Normal inspection ENT: positive: Other (Poor dentition) Neck: positive: Nml inspection Respiratory: positive: No respiratory distress, Breath sounds nml Cardiovascular: positive: Regular rate & rhythm Abdomen: positive: Non-tender Back: positive: Nml inspection Skin: positive: No rash Extremities: positive: Full ROM Neurologic/Psychiatric: positive: Oriented x3, Mood/affect nml, Slurred/abnml speech, Other (Patient has finger-nose abnormal bilaterally with past-pointing right worse than left) Conclusion/Plan - Problem List (1) Ataxia Conclusion/Plan: Patient is having intermittent and persisting ataxia and unclear etiology at this time. Her CT and CTA of head neck were negative per ER MD. MRI of brain without contrast revealed no acute findings. We will proceed with OT and physical therapy consults (2) Dysarthria Conclusion/Plan: Patient is having a persistent dysarthria at this time with negative imaging s tudies including CT CTA and MRI. We will get OT PT consult. (4) Bacteriuria with pyuria Conclusion/Plan: Continue with p.o. Keflex as patient really has no symptoms referable to UTI. Will await urine culture and sensitivities.Patient's urine culture reveals Enterococcus faecalis. Will actually switch to IV Unasyn to treat given his symptoms which may be referable to his UTI. (5) Atrial fibrillation Conclusion/Plan: Continue with patient's home medications once med reconciliation is completed. Continue with Eliquis anticoagulation which she takes at home as there were no acute findings on his imaging studies. Patient was noted to have episodes of bradycardia with his atrial fibrillation. He had it while standing and was symptomatic with lightheadedness. We will proceed with checking echocardiogram and keep on telemetry to monitor. Qualifiers: Atrial fibrillation type: unspecified Qualified Code(s): I48.91 - Unspecified atrial fibrillation - Lab Results Fish Bones: 01/17/23 04:53 01/17/23 04:53 - Diagnostic Imaging Results Diagnostic Imaging Results: positive: Final report reviewed
--- NOTE | 2023-01-18 14:53 | CT Report ---
PROCEDURE: ABDOMEN/PELVIS W INDICATIONS: abdominal pain CONTRAST: 100ml omni 300 TECHNIQUE: After the administration of intravenous and oral contrast, 5 mm thick sections acquired from the diap hragms to the symphysis. 5 mm thick coronal and sagittal reformats were acquired. For radiation dos e reduction, the following was used: automated exposure control, adjustment of mA and/or kV accordin g to patient size. COMPARISON: None FINDINGS: Image quality: Excellent. Lung bases and heart: Calcification of the coronary vasculature is present. Liver: No solid mass. Gallbladder and biliary tree: Within normal limits Spleen: No splenomegaly. Pancreas: No pancreatic ductal dilation. Adrenals: No adrenal nodule. Kidneys and ureters: No hydronephrosis. No renal cystic lesion which requires follow up. No solid mas s. Bowel and peritoneum: No bowel distension. No pathologic free fluid. Appendix not seen. No evidence o f appendicitis. Lymph nodes: No central or retroperitoneal adenopathy. Vessels: No infrarenal aortic aneurysm. PELVIS Reproductive organs: Unremarkable. Bladder: No abnormal wall thickening, accounting for underdistension. Pelvic lymph nodes: No pelvic adenopathy by size criteria. Bones: No aggressive osseous abnormality. Other: No significant ventral hernia. Fat-containing left greater than right inguinal hernias. Divert iculosis of the descending and sigmoid colon without evidence of acute diverticulitis. IMPRESSION: 1. No acute process. 2. At appendix not seen. No evidence of appendicitis. 3. Coronary artery disease. Reviewed by: Laurence Arceo MD on 01/18/2023 2:52 PM PDT Approved by: Laurence Arceo MD on 01/18/2023 2:52 PM PDT Station ID: [id number]
[2023-01-18] MEDS ORDERED: iohexoL-300 100 ML VIAL IVP ONE (15:01)
[2023-01-18] MEDS ORDERED: DIATRIZOATE MEGLU/DIATRIZO SOD 30 ML BOTTLE PO ONE (15:01)
[2023-01-18] MEDS: AMPICILLIN/SULBACTAM 1.5 GM in SODIUM CHLORIDE 0.9% MINIBAG 100 ML IV SCH ×2 (18:17→23:56)
[2023-01-19] MEDS: AMPICILLIN/SULBACTAM 1.5 GM in SODIUM CHLORIDE 0.9% MINIBAG 100 ML IV SCH ×3 (05:45→18:40)
[2023-01-19] MEDS: SODIUM CHLORIDE FLUSH 0.9% 10 ML SYRINGE IVP SCH ×3 (08:13→18:40)
[2023-01-19] MEDS: APIXABAN 5 MG TABLET PO SCH ×2 (08:13→21:55)
--- NOTE | 2023-01-19 12:52 | PHARMACY PROGRESS NOTE ---
- Best Possible Medication History Admit Date and Time: 01/18/23 1131 Processed by: Pharmacy Medication History completed: Yes Patient Interview: Pt unable to participate Secondary Source(s): Pharmacy records Med list updated using [facility] As the person ultimately responsible for medication therapy, providers are able to order a medication from an existing home medication list in [facility] via the "Reconcile Routine" prior to Confirmation of that medication by application support administrator. Such practice is discouraged except when the physician, in their clinical judgment, deems that a medical need exists for a medication without regard to previous use.
--- NOTE | 2023-01-19 16:50 | PROVIDER PROGRESS NOTE ---
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 Sees oncology at [place]. ) HEENT: reports: None Psych: reports: None Musculoskeletal: reports: None - Past Surgical History Cardiovascular: reports: Coronary stent - Family & Social History Living arrangement: At home Living Situation: Alone - Substance History Use: Uses substance without health or social issues: NONE - POLST Patient has POLST: No Meds/Allgy - Home Medications Home Medications: Ambulatory Orders Medication Instructions Recorded Confirmed Albuterol Sulf [Ventolin Hfa 1 - 2 puffs INH Q4HR PRN #1 each 01/16/23 Inhaler] cephALEXin [Keflex] 500 mg PO TID 5 Days #15 cap 01/16/23 - Allergies Allergies/Adverse Reactions: Allergies Allergy/AdvReac Type Severity Reaction Status Date / Time No Known Drug Allergies Allergy Verified 07/30/21 11:25 Exam - Vital Signs Reviewed Vital Signs: Yes Vital Signs: Vital Signs x48h Temp Pulse Pulse Resp BP BP Pulse Ox 01/17/23 13:17 36.4 C L 56 L 19 153/93 H 100 01/17/23 11:20 70 15 154/112 H 100 01/17/23 09:24 36.6 C 73 20 175/126 H 98 01/17/23 08:16 95 16 157/97 H 97 01/17/23 06:06 51 L 14 148/118 H 94 - Physical Exam General Appearance: positive: No acute distress Eyes Bilateral: positive: Normal inspection ENT: positive: Other (Poor dentition) Neck: positive: Nml inspection Respiratory: positive: No respiratory distress, Breath sounds nml Cardiovascular: positive: Regular rate & rhythm Abdomen: positive: Non-tender Back: positive: Nml inspection Skin: positive: No rash Extremities: positive: Full ROM Neurologic/Psychiatric: positive: Oriented x3, Mood/affect nml, Slurred/abnml speech, Other (Patient has finger-nose abnormal bilaterally with past-pointing right worse than left) Conclusion/Plan - Problem List (1) Ataxia Conclusion/Plan: Patient is having intermittent and persisting ataxia and unclear etiology at this time. Her CT and CTA of head neck were negative per ER MD. MRI of brain without contrast revealed no acute findings. We will proceed with OT and physical therapy consults (2) Dysarthria Conclusion/Plan: Patient is having a persistent dysarthria at this time with negative imaging studies including CT CTA and MRI. We will get OT PT consult. (4) Bacteriuria with pyuria Conclusion/Plan: Continue with p.o. Keflex as patient really has no symptoms referable to UTI. Will await urine culture and sensitivities.Patient's urine culture reveals Enterococcus faecalis. Will actually switch to IV Unasyn to treat given his symptoms which may be referable to his UTI. (5) Atrial fibrillation Conclusion/Plan: Continue with patient's home medications once med reconciliation is completed. Continue with Eliquis anticoagulation which she takes at home as there were no acute findings on his imaging studies. Patient was noted to have episodes of bradycardia with his atrial fibrillation. He had it while standing and was symptomatic with lightheadedness. We will proceed with checking echocardiogram and keep on telemetry to monitor.The episodes of bradycardia documented in the telemetry strips are basically from January 18. Qualifiers: Atrial fibrillation type: unspecified Qualified Code(s): I48.91 - Unspecified atrial fibrillation - Lab Results Fish Bones: 01/17/23 04:53 01/17/23 04:53 - Diagnostic Imaging Results Diagnostic Imaging Results: positive: Final report reviewed
[2023-01-20] MEDS: AMPICILLIN/SULBACTAM 1.5 GM in SODIUM CHLORIDE 0.9% MINIBAG 100 ML IV SCH ×5 (00:42→23:48)
[2023-01-20] MEDS: SODIUM CHLORIDE FLUSH 0.9% 10 ML SYRINGE IVP SCH ×4 (06:47→23:48)
[2023-01-20] MEDS: APIXABAN 5 MG TABLET PO SCH ×2 (07:58→21:11)
[2023-01-20] MEDS: ACETAMINOPHEN 325 MG TABLET PO PRN ×2 (07:58→22:14)
--- NOTE | 2023-01-20 16:11 | PROVIDER PROGRESS NOTE ---
Assessment/Plan - Problem List (1) Ataxia Assessment/Plan: Patient is having intermittent and persisting ataxia and unclear etiology at this time. This is a patient used to walk a mile a day using no walker or any equipment. His CT and CTA of head neck were negative. MRI of brain without contrast revealed no acute findings. Vital signs were checked. Orthostatic vital signs have been negative Plan: Cont with OT and physical therapy consults We are also treating a UTI that grew Enterococcus faecalis, since possibly altered mental status was caused by that infection (2) Dysarthria Conclusion/Plan: Patient is having a persistent dysarthria with negative imaging studies including CT CTA and MRI. Plan: OT and PT to work with him We are also treating a UTI that grew Enterococcus faecalis, since possibly altered mental status was caused by that infection (3) UTI due to Enterococcus (N39.0) Conclusion/Plan: Patient's urine culture reveals Enterococcus faecalis. IV Unasyn was started then changed to po Keflex Plan: Continue the Keflex to treat him, given his presenting symptoms, which may be referable to his UTI. (4) Atrial fibrillation Conclusion/Plan: Patient was noted to have episodes of bradycardia with his atrial fibrillation, on January 18. He had it while standing and was symptomatic with lightheadedness. I reviewed the reconciled med list. The patient is on no heart rate-slowing medications at home according to his reconciled med list. This is very likely from having episodes of that bradycardia that we witnessed Plan: We are awaiting an Echocardiogram (as there has been no ho tech available at this hospital until today, Thursday) Keep on telemetry to monitor. Continue with Eliquis anticoagulation which she takes at home as there were no acute bleed findings on his imaging studies. Qualifiers: Atrial fibrillation type: unspecified Qualified Code(s): I48.91 - Unspecified atrial fibrillation (5) Hx HTN Conclusion/Plan: Vital signs were checked. Orthostatic vital signs have been negative, in fact BP is slightly elevated with syst BP 1550-160's According to the reconciled medication list, the patient takes sacubitril/valsartan for BP control. This is usually only prescribed when there is systolic heart failure. The patient has never had an Echo here and in his EMR history there is no mention of systolic heart failure Plan: I have ordered patient's own med sacubitril/valsartan to be used for blood pressure control today, however we do not have this med on formulary and the patient does not have anyone to bring his home medication here because he lives alone. We will substitute with a low-dose of amlodipine 2.5 mg daily We will obtain an Echo, to define why he is taking sacubitril/valsartan - Current Meds Current Meds: Current Medications Generic Name Dose Route Start Last Admin Trade Name Chel PRN Reason Stop Dose Admin Acetaminophen 650 mg 01/17/23 12:16 01/20/23 07:58 Acetaminophen 325 Mg Tablet PO 650 mg Q4HR PRN Administration Pain 1 to 4, or Fever Apixaban 5 mg 01/18/23 09:00 01/20/23 07:58 Apixaban 5 Mg Tablet PO 5 mg BID INNA Administration Ampicillin Sodium/Sulbactam 100 mls @ 200 mls/hr 01/18/23 18:00 01/20/23 13:35 Sodium 1.5 gm/ Sodium Chloride IV Infused Q6HR INNA Infusion Ondansetron HCl 4 mg 01/18/23 08:07 01/18/23 08:49 Ondansetron Odt 4 Mg Tablet TL 4 mg Q6HR PRN Administration Nausea / Vomiting Sodium Chloride 10 ml 01/17/23 12:16 01/18/23 18:17 Sodium Chloride Flush 0.9% 10 Ml Syringe IVP 10 ml PRN PRN Administration NEEDED PER PROVIDER ORDERS Sodium Chloride 10 ml 01/17/23 17:00 01/20/23 07:59 Sodium Chloride Flush 0.9% 10 Ml Syringe IVP 10 ml 0100,0900,1700 INNA Administration - Lab Result Fish Bone Diagrams: 01/17/23 04:53 01/17/23 04:53 - Additional Planning My Orders: My Active Orders 01/20/23 21:00 Patient Own Med [Patient Own Medication] 0.5 each PO BID Subjective - Subjective Patient Reports: Resting Comfortably, No Complaints Objective Vital Signs: Vital Signs - 24 hr 01/19/23 01/19/23 01/20/23 21:00 23:59 05:31 Temperature 36.5 C 36.5 C 36.5 C Heart Rate [ 60 70 58 L Brachial] Respiratory 18 20 20 Rate Blood Pressure 146/89 H 162/83 H 144/98 H [Right Brachial artery] O2 Saturation 97 94 94 01/20/23 01/20/23 07:41 12:51 Temperature 36.4 C L 36.4 C L Heart Rate [ 62 74 Brachial] Respiratory 16 20 Rate Blood Pressure 156/65 H 153/91 H [Right Brachial artery] O2 Saturation 93 95 Oxygen O2 Source Room air I&O (Last 24 Hrs): Intake and Output Totals x24h 01/18/23 01/19/23 01/20/23 23:59 23:59 23:59 Intake Total 3258 271 8170 Output Total 925 1200 475 Balance 915 -380 685 General: Alert, No acute distress HEENT: Mucous membr. moist/pink Neck: Supple Neuro: Alert, Non Focal Cardiovascular: No murmurs Respiratory: No respiratory distress Abdomen: Soft Extremities: No clubbing, No edema - Results Results: Laboratory Results WBC 6.3 x10^3/uL (4.8-10.8) 01/17/23 04:53 RBC 4.80 10^6/uL (4.70-6.10) 01/17/23 04:53 Hgb 14.7 g/dL (14.0-18.0) 01/17/23 04:53 Hct 44.9 % (42.0-52.0) 01/17/23 04:53 MCV 93.5 fL (80.0-94.0) 01/17/23 04:53 MCH 30.6 pg (27.0-31.0) 01/17/23 04:53 MCHC 32.7 g/dL (32.0-36.0) 01/17/23 04:53 RDW 14.3 % (12.0-15.0) 01/17/23 04:53 Plt Count 141 10^3/uL (130-450) 01/17/23 04:53 MPV 10.4 fL (7.4-11.4) 01/17/23 04:53 Neut # (Auto) 3.8 10^3/uL (1.5-6.6) 01/17/23 04:53 Lymph # (Auto) 1.4 10^3/uL (1.5-3.5) L 01/17/23 04:53 [place] # (Auto) 1.1 10^3/uL (0.0-1.0) H 01/17/23 04:53 Eos # (Auto) 0.0 10^3/uL (0.0-0.7) 01/17/23 04:53 Baso # (Auto) 0.0 10^3/uL (0.0-0.1) 01/17/23 04:53 Absolute Nucleated RBC 0.00 x10^3/uL 01/17/23 04:53 Nucleated RBC % 0.0 /100WBC 01/17/23 04:53 Sodium 140 mmol/L (135-145) 01/17/23 04:53 Potassium 3.4 mmol/L (3.5-5.0) L 01/17/23 04:53 Chloride 106 mmol/L (101-111) 01/17/23 04:53 Carbon Dioxide 26 mmol/L (21-32) 01/17/23 04:53 Anion Gap 8.0 (6-13) 01/17/23 04:53 BUN 14 mg/dL (6-20) 01/17/23 04:53 Creatinine 1.1 mg/dL (0.6-1.2) 01/17/23 04:53 Estimated GFR (MDRD) 65 (>89) L 01/17/23 04:53 Glucose 108 mg/dL (70-100) H 01/17/23 04:53 POC Whole Bld Glucose 88 mg/dL (70 - 100) 01/16/23 14:13 Calcium 9.2 mg/dL (8.5-10.3) 01/17/23 04:53 Magnesium 1.9 mg/dL (1.7-2.8) 01/16/23 14:13 Total Bilirubin 1.0 mg/dL (0.2-1.0) 01/16/23 14:13 AST 21 IU/L (10-42) 01/16/23 14:13 ALT 19 IU/L (10-60) 01/16/23 14:13 Alkaline Phosphatase 72 IU/L (42-121) 01/16/23 14:13 Total Protein 6.5 g/dL (6.7-8.2) L 01/16/23 14:13 Albumin 4.0 g/dL (3.2-5.5) 01/16/23 14:13 Globulin 2.5 g/dL (2.1-4.2) 01/16/23 14:13 Albumin/Globulin Ratio 1.6 (1.0-2.2) 01/16/23 14:13 Lipase 53 U/L (22-51) H 01/16/23 14:13 TSH 4.16 uIU/mL (0.34-5.60) 01/16/23 14:13 Urine Color YELLOW 01/16/23 14:06 Urine Clarity SL. CLOUDY (CLEAR) 01/16/23 14:06 Urine pH 6.5 PH (5.0-7.5) 01/16/23 14:06 Ur Specific [place] <=1.005 (1.002-1.030) 01/16/23 14:06 Urine Protein NEGATIVE mg/dL (NEGATIVE) 01/16/23 14:06 Urine Glucose (UA) NEGATIVE mg/dL (NEGATIVE) 01/16/23 14:06 Urine Ketones NEGATIVE mg/dL (NEGATIVE) 01/16/23 14:06 Urine Occult Blood TRACE-INTA (NEGATIVE) 01/16/23 14:06 Urine Nitrite NEGATIVE (NEGATIVE) 01/16/23 14:06 Urine Bilirubin NEGATIVE (NEGATIVE) 01/16/23 14:06 Urine Urobilinogen 0.2 (NORMAL) E.U./dL (NORMAL) 01/16/23 14:06 Ur Leukocyte Esterase LARGE (NEGATIVE) H 01/16/23 14:06 Urine RBC 0-5 /HPF (0-5) 01/16/23 14:06 Urine WBC >25 /HPF (0-3) H 01/16/23 14:06 Ur Squamous Epith Cells NONE SEEN (<= Few) 01/16/23 14:06 Urine Bacteria Few /HPF (None Seen) 01/16/23 14:06 Ur Microscopic Review INDICATED 01/16/23 14:06 Urine Culture Comments INDICATED 01/16/23 14:06 Urine Opiates Screen NEGATIVE (NEGATIVE) 01/16/23 14:06 Ur Oxycodone Screen NEGATIVE (NEGATIVE) 01/16/23 14:06 Urine Methadone Screen NEGATIVE (NEGATIVE) 01/16/23 14:06 Ur Propoxyphene Screen NEGATIVE (NEGATIVE) 01/16/23 14:06 Ur Barbiturates Screen NEGATIVE (NEGATIVE) 01/16/23 14:06 Ur Tricyclics Screen NEGATIVE (NEGATIVE) 01/16/23 14:06 Ur Phencyclidine Scrn NEGATIVE (NEGATIVE) 01/16/23 14:06 Ur Amphetamine Screen NEGATIVE (NEGATIVE) 01/16/23 14:06 U Methamphetamines Scrn NEGATIVE (NEGATIVE) 01/16/23 14:06 U Benzodiazepines Scrn NEGATIVE (NEGATIVE) 01/16/23 14:06 Urine Cocaine Screen NEGATIVE (NEGATIVE) 01/16/23 14:06 U Cannabinoids Screen NEGATIVE (NEGATIVE) 01/16/23 14:06 Ethyl Alcohol < 5.0 mg/dL 01/16/23 14:13
[2023-01-20] MEDS: VALSARTAN PO SCH (21:12)
[2023-01-20] MEDS: SACUBITRIL PO SCH (21:12)
[2023-01-21] MEDS: AMPICILLIN/SULBACTAM 1.5 GM in SODIUM CHLORIDE 0.9% MINIBAG 100 ML IV SCH (05:31)
[2023-01-21] MEDS: ACETAMINOPHEN 325 MG TABLET PO PRN ×2 (07:58→17:14)
[2023-01-21] MEDS: APIXABAN 5 MG TABLET PO SCH ×2 (07:58→21:53)
[2023-01-21] MEDS: SODIUM CHLORIDE FLUSH 0.9% 10 ML SYRINGE IVP SCH ×2 (07:58→17:14)
[2023-01-21] MEDS: VENETOCLAX 100 MG PO SCH (12:27)
[2023-01-21] MEDS: SACUBITRIL PO SCH ×2 (12:28→21:53)
[2023-01-21] MEDS: VALSARTAN PO SCH ×2 (12:28→21:53)
[2023-01-21] MEDS: cephALEXin 250 MG CAPSULE PO SCH ×3 (12:44→21:53)
[2023-01-21] MEDS: SACCHAROMYCES BOULARDII 250 MG CAPSULE PO SCH (17:14)
[2023-01-21] MEDS: ONDANSETRON ODT 4 MG TABLET TL PRN (17:14)
--- NOTE | 2023-01-21 19:08 | PROVIDER PROGRESS NOTE ---
Assessment/Plan - Problem List (1) Ataxia Assessment/Plan: Patient was having intermittent ataxia of unclear etiology at this time. This is a patient used to walk a mile a day using no walker or any equipment. His CT and CTA of head neck were negative. MRI of brain without contrast revealed no acute findings. Vital signs were checked. Orthostatic vital signs have been negative My impression is that he was weak and then became deconditioned because of having the UTI Plan: Cont with OT and physical therapy. He will need SNF for more rehab before returning home. We are also treating a UTI that grew Enterococcus faecalis, since possibly altered mental status was caused by that infection (2) UTI due to Enterococcus (N39.0) Conclusion/Plan: Patient's urine culture revealed Enterococcus faecalis. IV Unasyn was started I suspect his loose stools are from the antibiotic Plan: Will give a complete course of antibx, given his presenting symptoms, which may be referable to his UTI. We will order a probiotic and Imodium as needed loose stools (3) Atrial fibrillation Conclusion/Plan: Patient was noted to have episodes of bradycardia with his atrial fibrillation, on January 18. He had it while standing and was symptomatic with lightheadedness. I reviewed the reconciled med list. The patient is on no heart rate-slowing medications at home according to his reconciled med list. This is very likely from having episodes of that bradycardia that we witnessed Plan: We are awaiting an Echocardiogram (as there has been no refurbish technician available at this hospital until yesterday, Thursday) Keep on telemetry to monitor. Continue with Eliquis anticoagulation which he takes at home as there were no acute bleed findings on his imaging studies. Qualifiers: Atrial fibrillation type: unspecified Qualified Code(s): I48.91 - Unspecified atrial fibrillation (4) Hx HTN Conclusion/Plan: Vital signs were checked. Orthostatic vital signs have been negative, in fact BP is slightly elevated with syst BP 1550-160's According to the reconciled medication list, the patient takes sacubitril/valsartan for BP control. This is usually only prescribed when there is systolic heart failure. The patient has never had an Echo here and in his EMR history there is no mention of systolic heart failure Plan: I have ordered patient's own med sacubitril/valsartan to be used for blood pressure control, however we do not have this med on formulary and the patient does not have anyone to bring his home medication here because he lives alone. We will substitute with a low-dose of amlodipine 2.5 mg daily We will obtain an Echo, to define why he is taking sacubitril/valsartan (5) Dysarthria Conclusion/Plan: Resolved Patient was having persistent dysarthria with negative imaging studies including CT CTA and MRI. Plan: OT and PT to work with him We are also treating a UTI that grew Enterococcus faecalis, since possibly altered mental status was caused by that infection - Current Meds Current Meds: Current Medications Generic Name Dose Route Start Last Admin Trade Name Freq PRN Reason Stop Dose Admin Acetaminophen 650 mg 01/17/23 12:16 01/21/23 17:14 Acetaminophen 325 Mg Tablet PO 650 mg Q4HR PRN Administration Pain 1 to 4, or Fever Apixaban 5 mg 01/18/23 09:00 01/21/23 07:58 Apixaban 5 Mg Tablet PO 5 mg BID INNA Administration Cephalexin 500 mg 01/21/23 13:00 01/21/23 17:14 Cephalexin 250 Mg Capsule PO 500 mg QID INNA Administration Ondansetron HCl 4 mg 01/18/23 08:07 01/21/23 17:14 Ondansetron Odt 4 Mg Tablet TL 4 mg Q6HR PRN Administration Nausea / Vomiting Sacubitril/ 0.5 each 01/20/23 21:00 01/21/23 12:28 Valsartan [Entresto PO Not Given 24 Mg-26 Mg Tablet]* BID INNA * Venetoclax [ 4 each 01/21/23 08:00 01/21/23 12:27 Venclexta] 100 Mg PO Not Given Tablet DAILYWM INNA Saccharomyces Boulardii 250 mg 01/21/23 17:00 01/21/23 17:14 Saccharomyces Boulardii 250 Mg Capsule PO 250 mg BIDWM INNA Administration Sodium Chloride 10 ml 01/17/23 12:16 01/18/23 18:17 Sodium Chloride Flush 0.9% 10 Ml Syringe IVP 10 ml PRN PRN Administration NEEDED PER PROVIDER ORDERS Sodium Chloride 10 ml 01/17/23 17:00 01/21/23 17:14 Sodium Chloride Flush 0.9% 10 Ml Syringe IVP 10 ml 0100,0900,1700 [facility] Administration - Lab Result Fish Bone Diagrams: 01/17/23 04:53 01/17/23 04:53 - Additional Planning My Orders: My Active Orders 01/20/23 21:00 Patient Own Med [Patient Own Medication] 0.5 each PO BID 01/21/[address] [ST] Routine 01/21/23 08:00 Patient Own Med [Patient Own Medication] 4 each PO DAILYWM 01/21/23 13:00 cephALEXin [Keflex] 500 mg PO QID 01/21/23 17:00 Saccharomyces Boulardii [Florastor] 250 mg PO BIDWM Subjective - Subjective Patient Reports: Abdominal Pain (Since dinner yesterday he had bloating and passing a lot of gas and BMs have become slightly more loose. He has no nausea, abdominal pain or vomiting) Objective Vital Signs: Vital Signs - 24 hr 01/20/23 01/21/23 01/21/23 20:59 00:32 02:24 Temperature 36.5 C 36.3 C L Heart Rate [ 65 56 L Brachial] Respiratory 20 20 Rate Blood Pressure [Left Brachial artery] Blood Pressure 148/97 H 142/72 H [Right Brachial artery] Blood Pressure [Right Radial artery] O2 Saturation 95 96 95 01/21/23 01/21/23 01/21/23 04:43 07:50 13:09 Temperature 36.5 C 36.5 C 36.6 C Heart Rate [ 70 70 66 Brachial] Respiratory 20 16 20 Rate Blood Pressure 167/103 H 167/99 H [Left Brachial artery] Blood Pressure 154/113 H [Right Brachial artery] Blood Pressure 167/86 H [Right Radial artery] O2 Saturation 94 93 96 01/21/23 15:57 Temperature 36.5 C Heart Rate [ 74 Brachial] Respiratory 20 Rate Blood Pressure [Left Brachial artery] Blood Pressure 165/90 H [Right Brachial artery] Blood Pressure [Right Radial artery] O2 Saturation 96 Oxygen O2 Source Room air I&O (Last 24 Hrs): Intake and Output Totals x24h 01/19/23 01/20/23 01/21/23 23:59 23:59 23:59 Intake Total 820 1360 1310 Output Total 9421 340 1776 Balance -380 440 -15 General: Alert, Oriented x3 HEENT: Mucous membr. moist/pink Neck: Supple, No JVD Neuro: Alert, Non Focal, Other (His speech is now normal) Respiratory: No respiratory distress Abdomen: Normal bowel sounds, Soft, No tenderness Extremities: No clubbing, No edema - Results Results: Laboratory Results WBC 6.3 x10^3/uL (4.8-10.8) 01/17/23 04:53 RBC 4.80 10^6/uL (4.70-6.10) 01/17/23 04:53 Hgb 14.7 g/dL (14.0-18.0) 01/17/23 04:53 Hct 44.9 % (42.0-52.0) 01/17/23 04:53 MCV 93.5 fL (80.0-94.0) 01/17/23 04:53 MCH 30.6 pg (27.0-31.0) 01/17/23 04:53 MCHC 32.7 g/dL (32.0-36.0) 01/17/23 04:53 RDW 14.3 % (12.0-15.0) 01/17/23 04:53 Plt Count 141 10^3/uL (130-450) 01/17/23 04:53 MPV 10.4 fL (7.4-11.4) 01/17/23 04:53 Neut # (Auto) 3.8 10^3/uL (1.5-6.6) 01/17/23 04:53 Lymph # (Auto) 1.4 10^3/uL (1.5-3.5) L 01/17/23 04:53 [place] # (Auto) 1.1 10^3/uL (0.0-1.0) H 01/17/23 04:53 Eos # (Auto) 0.0 10^3/uL (0.0-0.7) 01/17/23 04:53 Baso # (Auto) 0.0 10^3/uL (0.0-0.1) 01/17/23 04:53 Absolute Nucleated RBC 0.00 x10^3/uL 01/17/23 04:53 Nucleated RBC % 0.0 /100WBC 01/17/23 04:53 Sodium 140 mmol/L (135-145) 01/17/23 04:53 Potassium 3.4 mmol/L (3.5-5.0) L 01/17/23 04:53 Chloride 106 mmol/L (101-111) 01/17/23 04:53 Carbon Dioxide 26 mmol/L (21-32) 01/17/23 04:53 Anion Gap 8.0 (6-13) 01/17/23 04:53 BUN 14 mg/dL (6-20) 01/17/23 04:53 Creatinine 1.1 mg/dL (0.6-1.2) 01/17/23 04:53 Estimated GFR (MDRD) 65 (>89) L 01/17/23 04:53 Glucose 108 mg/dL (70-100) H 01/17/23 04:53 POC Whole Bld Glucose 88 mg/dL (70 - 100) 01/16/23 14:13 Calcium 9.2 mg/dL (8.5-10.3) 01/17/23 04:53 Magnesium 1.9 mg/dL (1.7-2.8) 01/16/23 14:13 Total Bilirubin 1.0 mg/dL (0.2-1.0) 01/16/23 14:13 AST 21 IU/L (10-42) 01/16/23 14:13 ALT 19 IU/L (10-60) 01/16/23 14:13 Alkaline Phosphatase 72 IU/L (42-121) 01/16/23 14:13 Total Protein 6.5 g/dL (6.7-8.2) L 01/16/23 14:13 Albumin 4.0 g/dL (3.2-5.5) 01/16/23 14:13 Globulin 2.5 g/dL (2.1-4.2) 01/16/23 14:13 Albumin/Globulin Ratio 1.6 (1.0-2.2) 01/16/23 14:13 Lipase 53 U/L (22-51) H 01/16/23 14:13 Vitamin B12 419 pg/mL (180-914) 01/21/23 11:44 TSH 4.16 uIU/mL (0.34-5.60) 01/16/23 14:13 Urine Color YELLOW 01/16/23 14:06 Urine Clarity SL. CLOUDY (CLEAR) 01/16/23 14:06 Urine pH 6.5 PH (5.0-7.5) 01/16/23 14:06 Ur Specific [place] <=1.005 (1.002-1.030) 01/16/23 14:06 Urine Protein NEGATIVE mg/dL (NEGATIVE) 01/16/23 14:06 Urine Glucose (UA) NEGATIVE mg/dL (NEGATIVE) 01/16/23 14:06 Urine Ketones NEGATIVE mg/dL (NEGATIVE) 01/16/23 14:06 Urine Occult Blood TRACE-INTA (NEGATIVE) 01/16/23 14:06 Urine Nitrite NEGATIVE (NEGATIVE) 01/16/23 14:06 Urine Bilirubin NEGATIVE (NEGATIVE) 01/16/23 14:06 Urine Urobilinogen 0.2 (NORMAL) E.U./dL (NORMAL) 01/16/23 14:06 Ur Leukocyte Esterase LARGE (NEGATIVE) H 01/16/23 14:06 Urine RBC 0-5 /HPF (0-5) 01/16/23 14:06 Urine WBC >25 /HPF (0-3) H 01/16/23 14:06 Ur Squamous Epith Cells NONE SEEN (<= Few) 01/16/23 14:06 Urine Bacteria Few /HPF (None Seen) 01/16/23 14:06 Ur Microscopic Review INDICATED 01/16/23 14:06 Urine Culture Comments INDICATED 01/16/23 14:06 Urine Opiates Screen NEGATIVE (NEGATIVE) 01/16/23 14:06 Ur Oxycodone Screen NEGATIVE (NEGATIVE) 01/16/23 14:06 Urine Methadone Screen NEGATIVE (NEGATIVE) 01/16/23 14:06 Ur Propoxyphene Screen NEGATIVE (NEGATIVE) 01/16/23 14:06 Ur Barbiturates Screen NEGATIVE (NEGATIVE) 01/16/23 14:06 Ur Tricyclics Screen NEGATIVE (NEGATIVE) 01/16/23 14:06 Ur Phencyclidine Scrn NEGATIVE (NEGATIVE) 01/16/23 14:06 Ur Amphetamine Screen NEGATIVE (NEGATIVE) 01/16/23 14:06 U Methamphetamines Scrn NEGATIVE (NEGATIVE) 01/16/23 14:06 U Benzodiazepines Scrn NEGATIVE (NEGATIVE) 01/16/23 14:06 Urine Cocaine Screen NEGATIVE (NEGATIVE) 01/16/23 14:06 U Cannabinoids Screen NEGATIVE (NEGATIVE) 01/16/23 14:06 Ethyl Alcohol < 5.0 mg/dL 01/16/23 14:13
[2023-01-21] MEDS ORDERED: LOPERAMIDE 2 MG CAPSULE PO PRN (19:09)
[2023-01-22] MEDS: SIMETHICONE CHEW 80 MG TABLET PO PRN ×4 (01:01→22:01)
[2023-01-22] MEDS: SODIUM CHLORIDE FLUSH 0.9% 10 ML SYRINGE IVP SCH ×3 (01:06→17:26)
[2023-01-22] MEDS: APIXABAN 5 MG TABLET PO SCH ×2 (08:11→22:01)
[2023-01-22] MEDS: cephALEXin 250 MG CAPSULE PO SCH ×4 (08:11→22:01)
[2023-01-22] MEDS: ACETAMINOPHEN 325 MG TABLET PO PRN (08:11)
[2023-01-22] MEDS: VALSARTAN PO SCH ×2 (08:12→22:01)
[2023-01-22] MEDS: SACUBITRIL PO SCH ×2 (08:12→22:01)
[2023-01-22] MEDS: SACCHAROMYCES BOULARDII 250 MG CAPSULE PO SCH ×2 (08:12→17:26)
[2023-01-22] MEDS: VENETOCLAX 100 MG PO SCH (08:13)
--- NOTE | 2023-01-22 11:36 | Discharge Plan ---
"Discharge Plan for SNF / [facility] - Discharge Plan And Transition Orders Problem Reviewed?: Yes Disposition: 03 SNF DC/Xfer Condition: Stable Allergies and Adverse Reactions: Allergies Allergy/AdvReac Type Severity Reaction Status Date / Time corn Allergy Respiratory Verified 01/17/23 14:16 peanut Allergy Respiratory Verified 01/17/23 14:16 Health Concerns: The patient was hospitalized due to weakness and ataxia and dysarthria. The stroke work-up was entirely neg. He did have a UTI, and may have had these symptoms due to the infection. Improved with IV fluids and antibiotics and started working with PT and OT. He needs further rehab with PT, OT and Speech Therapist at a SNF before returning home. Plan of Treatment: Daily PT, OT and Speech Therapy. Finish treatment for the UTI. Care Goals: Improvement in symptoms and stabilization are the goals. Assessment: The patient understands and is agreeable with the plan. - SNF / [facility] Transition Orders Admit to (Facility): [facility][1] Under the care of (Name): Staff provider Discharge Diagnosis: (1) Ataxia (2) Dysarthria (3) UTI due to Enterococcus (4) Atrial fibrillation (5) HTN (6) Hx of trsticular lymphoma Medicare Certification Statement: I certify that [facility] care is medically necessary on a continuing basis for any of the conditions for which she/he is receiving care during hospitalization. Notify PCP of admission and forward orders to primary provider for signature. Weight on admission and: Weekly Call PCP immediately if weight increases by: 5 kg Other Notification Orders: Call PCP immediately if patient develops dyspnea, chest pain/tightness or edema. House Bowel Program: Yes Additional Bowel Program Orders: If no BM after 2 days, nurse may give M.O.M. 30ml PO PRN and/or ducolax Supp 1 HI and/or JOSH 250mg P.O., and/or senna 1-2 tabs PO. On day 3 nurse may give repeat above order until residents constipation is resolved. Annual Influenza Vaccine (between May 08 and December 05): Yes Two-step PPD per [facility] [phone] or approved exception documents: Yes Medication Orders: PLEASE REFER TO THE DISCHARGE MEDICATION LIST. Insulin Orders?: No - Medications New Prescriptions: Albuterol Sulf [Ventolin Hfa Inhaler] 1 - 2 puffs INH Q4HR PRN #1 each PRN Reason: Shortness Of Air/Wheezing Saccharomyces Boulardii [Florastor] 250 mg PO BIDWM #6 cap Loperamide [Imodium] 2 mg PO QID PRN #10 cap PRN Reason: Diarrhea cephALEXin [Keflex] 500 mg PO QID #10 cap Simethicone [Mylicon] 80 mg PO 0900,1300,1800,2100 PRN #10 tab PRN Reason: As Needed Per Provider Orders Amlodipine Besylate [Norvasc] 2.5 mg PO DAILY #30 tablet - Diet Type: No added salt Texture: Regular Liquids: Thin May have monthly special meal: Yes - Therapies | Activity Therapy: Evaluation | Treat if indicated: Speech, PT, OT Rehabilitation Potential: Maximize functional status Activity: Activity as Tolerated Weight Bearing: Full Weight Assistance Devices: Walker Follow Up: See PCP after discharge from SNF."
[2023-01-22] MEDS ORDERED: amLODIPine 5 MG TABLET PO ONE (12:40)
--- NOTE | 2023-01-22 13:40 | DISCHARGE SUMMARY ---
Discharge Summary Discharge Date: 01/22/23 Discharging Provider: Dr Inez Tidwell Code Status: Attempt Resuscitation Condition at Discharge: Stable Discharge Disposition: 03 SNF DC/Xfer - ALLERGIES Allergies/Adverse Reactions: Allergies Allergy/AdvReac Type Severity Reaction Status Date / Time corn Allergy Respiratory Verified 01/17/23 14:16 peanut Allergy Respiratory Verified 01/17/23 14:16 - MEDICATIONS Home Medications: Ambulatory Orders Medication Instructions Recorded Confirmed Albuterol Sulf [Ventolin Hfa 1 - 2 puffs INH Q4HR PRN #1 each 01/16/23 Inhaler] Apixaban [Eliquis] 5 mg PO BID 01/17/23 01/17/23 Omeprazole Magnesium 20 mg PO QDAC 01/19/23 01/19/23 Venetoclax [Venclexta] 400 mg PO DAILYWM 01/19/23 01/19/23 Amlodipine Besylate [Norvasc] 2.5 mg PO DAILY #30 tablet 01/22/23 Loperamide [Imodium] 2 mg PO QID PRN #10 cap 01/22/23 Saccharomyces Boulardii [Florastor] 250 mg PO BIDWM #6 cap 01/22/23 Simethicone [Mylicon] 80 mg PO 0900,1300,1800,2100 PRN 01/22/23 #10 tab cephALEXin [Keflex] 500 mg PO QID #10 cap 01/22/23 - LABS Result Diagrams: 01/17/23 04:53 01/17/23 04:53
--- NOTE | 2023-01-22 18:51 | PROVIDER PROGRESS NOTE ---
Assessment/Plan - Problem List (1) Ataxia Assessment/Plan: Patient still having ataxia of unclear etiology. This is a patient used to walk a mile a day using no walker or any equipment. His CT and CTA of head neck were negative. MRI of brain without contrast revealed no acute findings. Vital signs were checked and Orthostatic vital signs have been negative My impression is that he was weak and then became deconditioned because of having the UTI Plan: We are still treating a UTI that grew Enterococcus faecalis, since possibly altered mental status was caused by that infection He is progressing with continued OT and physical therapy. He was to be dch to a SNF today ([facility]) for more rehab before returning home. However, when the center received our faxed orders and saw that he is on a home medication, they refused to take him because they said they could not supply that medication. Despite my speaking to the nurse at the facility today, indicating that it was "patient's own med" and could be ordered that way by their facility provider the way I have ordered it here, they insisted that their facility needs to supply all meds to this Medicare patient, but it is not on their formulary, so they could not supply it and turned him down. This was discussed with Nikhil Alcantar today. Thus he was not accepted for a discharge to there (2) Dysarthria Conclusion/Plan: Improved but still noticeable. Patient was having persistent dysarthria with negative imaging studies including CT CTA and MRI. Plan: OT and PT to work with him. He would also benefit from speech therapy, which is ordered when he goes to a SNF We are also treating a UTI that grew Enterococcus faecalis, since possibly altered mental status was caused by that infection (3) UTI due to Enterococcus (N39.0) Conclusion/Plan: Patient's urine culture revealed Enterococcus faecalis. IV Unasyn was started. I transitioned him to po Keflex. A total 7 day course of antibx is planned. I suspect his loose stools and gas/bloating are from the antibiotic Plan: Will give a complete course of antibx, given his presenting symptoms, which may be referable to his UTI. We will order a probiotic and Imodium as needed loose stools (4) Atrial fibrillation Conclusion/Plan: Patient was noted to have episodes of bradycardia with his atrial fibrillation, on January 18. He had it while standing and was symptomatic with lightheadedness. I reviewed the reconciled med list. The patient is on no heart rate-slowing medications at home according to his reconciled med list. This is very likely from having episodes of that bradycardia that we witnessed The Echo showed a normal LVEF Plan: Continue with Eliquis anticoagulation which he takes at home as there were no acute bleed findings on his imaging studies. Qualifiers: Atrial fibrillation type: unspecified Qualified Code(s): I48.91 - Unspecified atrial fibrillation (5) HTN Conclusion/Plan: Vital signs were checked. Orthostatic vital signs have been negative, in fact BP is slightly elevated with syst BP 1550-160's According to the reconciled medication list, the patient takes sacubitril/valsartan for BP control. This is usually only prescribed when there is systolic heart failure. In addition, the patient is not on other meds for systolic heart failure like spironolactone or beta-carlton The Echo was done today and showed normal LVEF. He therefore does not need Entresto for blood pressure control Plan: We will cont with a low-dose of amlodipine 2.5 mg daily It would be interesting to get outside records to see why Entresto was picked for blood pressure control (6) Hx lymphoma The patient is on a medication called Venclexta. I have ordered it to be used here as "patient's own med". The patient has no one to go to his house to shredder picker the medicine and bring it in here he said In speaking to the SNF today, the nurse asked if this medication could be put on hold for the several weeks time that he might be at SNF. I answered that I am not this patient's oncologist to be able to answer that Plan: I will try to reach his oncologist to ask if medicine can be paused for several weeksThe patient gave me the name of his oncologist, Dr. Brown, who works at and [facility] and [facility]. Today I called the contact # that I see for Dr Brown on [employer] at [facility] and the medical office receptionist assistant there said he does not work there anymore. - Current Meds Current Meds: Current Medications Generic Name Dose Route Start Last Admin Trade Name Freq PRN Reason Stop Dose Admin Acetaminophen 650 mg 01/17/23 12:16 01/22/23 08:11 Acetaminophen 325 Mg Tablet PO 650 mg Q4HR PRN Administration Pain 1 to 4, or Fever Apixaban 5 mg 01/18/23 09:00 01/22/23 08:11 Apixaban 5 Mg Tablet PO 5 mg BID INNA Administration Cephalexin 500 mg 01/21/23 13:00 01/22/23 17:26 Cephalexin 250 Mg Capsule PO 500 mg QID INNA Administration Ondansetron HCl 4 mg 01/18/23 08:07 01/21/23 17:14 Ondansetron Odt 4 Mg Tablet TL 4 mg Q6HR PRN Administration Nausea / Vomiting Sacubitril/ 0.5 each 01/20/23 21:00 01/22/23 08:12 Valsartan [Entresto PO Not Given 24 Mg-26 Mg Tablet]* BID INNA * Venetoclax [ 4 each 01/21/23 08:00 01/22/23 08:13 Venclexta] 100 Mg PO Not Given Tablet DAILYWM INNA Saccharomyces Boulardii 250 mg 01/21/23 17:00 01/22/23 17:26 Saccharomyces Boulardii 250 Mg Capsule PO 250 mg BIDWM INNA Administration Simethicone 80 mg 01/21/23 19:10 01/22/23 17:30 Simethicone Chew 80 Mg Tablet PO 80 mg 0900,1300,1800,2100 PRN Administration NEEDED PER PROVIDER ORDERS Sodium Chloride 10 ml 01/17/23 12:16 01/18/23 18:17 Sodium Chloride Flush 0.9% 10 Ml Syringe IVP 10 ml PRN PRN Administration NEEDED PER PROVIDER ORDERS Sodium Chloride 10 ml 01/17/23 17:00 01/22/23 17:26 Sodium Chloride Flush 0.9% 10 Ml Syringe IVP Not Given 0100,0900,1700 INNA - Lab Result Fish Bone Diagrams: 01/17/23 04:53 01/17/23 04:53 - Additional Planning My Orders: My Active Orders 01/21/23 19:09 Loperamide [Imodium] 2 mg PO QID PRN 01/21/23 19:10 Simethicone [Mylicon] 80 mg PO 0900,1300,1800,2100 PRN Subjective - Subjective Patient Reports: No Complaints Objective Vital Signs: Vital Signs - 24 hr 01/21/23 01/22/23 01/22/23 20:13 00:06 06:22 Temperature 36.5 C 36.5 C 36.6 C Heart Rate [ 60 62 65 Brachial] Respiratory 20 18 20 Rate Blood Pressure 153/81 H 147/84 H 152/96 H [Right Brachial artery] O2 Saturation 96 96 96 01/22/23 01/22/23 01/22/23 08:08 13:00 17:00 Temperature 36.5 C 36.3 C L 36.5 C Heart Rate [ 61 63 74 Brachial] Respiratory 18 21 21 Rate Blood Pressure 146/106 H 159/90 H 153/97 H [Right Brachial artery] O2 Saturation 95 95 94 Oxygen O2 Source Room air I&O (Last 24 Hrs): Intake and Output Totals x24h 01/20/23 01/21/23 01/22/23 23:59 23:59 23:59 Intake Total 1360 2046 1320 Output Total 920 1525 600 Balance 440 521 720 General: Alert, Oriented x3 HEENT: Mucous membr. moist/pink, Other ((+) lid swelling w/out redness) Neck: Supple, No JVD Neuro: Alert, Speech Slurred Cardiovascular: No murmurs Respiratory: No respiratory distress Abdomen: Normal bowel sounds, Soft, No tenderness Extremities: No clubbing, No edema - Results Results: Laboratory Results WBC 6.3 x10^3/uL (4.8-10.8) 01/17/23 04:53 RBC 4.80 10^6/uL (4.70-6.10) 01/17/23 04:53 Hgb 14.7 g/dL (14.0-18.0) 01/17/23 04:53 Hct 44.9 % (42.0-52.0) 01/17/23 04:53 MCV 93.5 fL (80.0-94.0) 01/17/23 04:53 MCH 30.6 pg (27.0-31.0) 01/17/23 04:53 MCHC 32.7 g/dL (32.0-36.0) 01/17/23 04:53 RDW 14.3 % (12.0-15.0) 01/17/23 04:53 Plt Count 141 10^3/uL (130-450) 01/17/23 04:53 MPV 10.4 fL (7.4-11.4) 01/17/23 04:53 Neut # (Auto) 3.8 10^3/uL (1.5-6.6) 01/17/23 04:53 Lymph # (Auto) 1.4 10^3/uL (1.5-3.5) L 01/17/23 04:53 [place] # (Auto) 1.1 10^3/uL (0.0-1.0) H 01/17/23 04:53 Eos # (Auto) 0.0 10^3/uL (0.0-0.7) 01/17/23 04:53 Baso # (Auto) 0.0 10^3/uL (0.0-0.1) 01/17/23 04:53 Absolute Nucleated RBC 0.00 x10^3/uL 01/17/23 04:53 Nucleated RBC % 0.0 /100WBC 01/17/23 04:53 Sodium 140 mmol/L (135-145) 01/17/23 04:53 Potassium 3.4 mmol/L (3.5-5.0) L 01/17/23 04:53 Chloride 106 mmol/L (101-111) 01/17/23 04:53 Carbon Dioxide 26 mmol/L (21-32) 01/17/23 04:53 Anion Gap 8.0 (6-13) 01/17/23 04:53 BUN 14 mg/dL (6-20) 01/17/23 04:53 Creatinine 1.1 mg/dL (0.6-1.2) 01/17/23 04:53 Estimated GFR (MDRD) 65 (>89) L 01/17/23 04:53 Glucose 108 mg/dL (70-100) H 01/17/23 04:53 POC Whole Bld Glucose 88 mg/dL (70 - 100) 01/16/23 14:13 Calcium 9.2 mg/dL (8.5-10.3) 01/17/23 04:53 Magnesium 1.9 mg/dL (1.7-2.8) 01/16/23 14:13 Total Bilirubin 1.0 mg/dL (0.2-1.0) 01/16/23 14:13 AST 21 IU/L (10-42) 01/16/23 14:13 ALT 19 IU/L (10-60) 01/16/23 14:13 Alkaline Phosphatase 72 IU/L (42-121) 01/16/23 14:13 Total Protein 6.5 g/dL (6.7-8.2) L 01/16/23 14:13 Albumin 4.0 g/dL (3.2-5.5) 01/16/23 14:13 Globulin 2.5 g/dL (2.1-4.2) 01/16/23 14:13 Albumin/Globulin Ratio 1.6 (1.0-2.2) 01/16/23 14:13 Lipase 53 U/L (22-51) H 01/16/23 14:13 Vitamin B12 419 pg/mL (180-914) 01/21/23 11:44 TSH 4.16 uIU/mL (0.34-5.60) 01/16/23 14:13 Urine Color YELLOW 01/16/23 14:06 Urine Clarity SL. CLOUDY (CLEAR) 01/16/23 14:06 Urine pH 6.5 PH (5.0-7.5) 01/16/23 14:06 Ur Specific [place] <=1.005 (1.002-1.030) 01/16/23 14:06 Urine Protein NEGATIVE mg/dL (NEGATIVE) 01/16/23 14:06 Urine Glucose (UA) NEGATIVE mg/dL (NEGATIVE) 01/16/23 14:06 Urine Ketones NEGATIVE mg/dL (NEGATIVE) 01/16/23 14:06 Urine Occult Blood TRACE-INTA (NEGATIVE) 01/16/23 14:06 Urine Nitrite NEGATIVE (NEGATIVE) 01/16/23 14:06 Urine Bilirubin NEGATIVE (NEGATIVE) 01/16/23 14:06 Urine Urobilinogen 0.2 (NORMAL) E.U./dL (NORMAL) 01/16/23 14:06 Ur Leukocyte Esterase LARGE (NEGATIVE) H 01/16/23 14:06 Urine RBC 0-5 /HPF (0-5) 01/16/23 14:06 Urine WBC >25 /HPF (0-3) H 01/16/23 14:06 Ur Squamous Epith Cells NONE SEEN (<= Few) 01/16/23 14:06 Urine Bacteria Few /HPF (None Seen) 01/16/23 14:06 Ur Microscopic Review INDICATED 01/16/23 14:06 Urine Culture Comments INDICATED 01/16/23 14:06 Urine Opiates Screen NEGATIVE (NEGATIVE) 01/16/23 14:06 Ur Oxycodone Screen NEGATIVE (NEGATIVE) 01/16/23 14:06 Urine Methadone Screen NEGATIVE (NEGATIVE) 01/16/23 14:06 Ur Propoxyphene Screen NEGATIVE (NEGATIVE) 01/16/23 14:06 Ur Barbiturates Screen NEGATIVE (NEGATIVE) 01/16/23 14:06 Ur Tricyclics Screen NEGATIVE (NEGATIVE) 01/16/23 14:06 Ur Phencyclidine Scrn NEGATIVE (NEGATIVE) 01/16/23 14:06 Ur Amphetamine Screen NEGATIVE (NEGATIVE) 01/16/23 14:06 U Methamphetamines Scrn NEGATIVE (NEGATIVE) 01/16/23 14:06 U Benzodiazepines Scrn NEGATIVE (NEGATIVE) 01/16/23 14:06 Urine Cocaine Screen NEGATIVE (NEGATIVE) 01/16/23 14:06 U Cannabinoids Screen NEGATIVE (NEGATIVE) 01/16/23 14:06 Ethyl Alcohol < 5.0 mg/dL 01/16/23 14:13 SARS-CoV-2 (PCR) NOT DETECTED 01/22/23 11:08
[2023-01-23] MEDS: SODIUM CHLORIDE FLUSH 0.9% 10 ML SYRINGE IVP SCH ×4 (00:10→23:25)
[2023-01-23] MEDS: SACCHAROMYCES BOULARDII 250 MG CAPSULE PO SCH ×2 (09:01→17:10)
[2023-01-23] MEDS: cephALEXin 250 MG CAPSULE PO SCH ×4 (09:01→20:45)
[2023-01-23] MEDS: APIXABAN 5 MG TABLET PO SCH ×2 (09:01→20:44)
[2023-01-23] MEDS: SACUBITRIL PO SCH ×2 (09:02→20:45)
[2023-01-23] MEDS: VENETOCLAX 100 MG PO SCH (09:02)
[2023-01-23] MEDS: VALSARTAN PO SCH ×2 (09:02→20:45)
[2023-01-23] MEDS: SIMETHICONE CHEW 80 MG TABLET PO PRN (09:32)
--- NOTE | 2023-01-23 16:37 | PROVIDER PROGRESS NOTE ---
Assessment/Plan - Problem List (1) Ataxia Assessment/Plan: Patient still having ataxia of unclear etiology. This is a patient used to walk a mile a day using no walker or any equipment. His CT and CTA of head neck were negative. MRI of brain without contrast revealed no acute findings. Vital signs were checked and Orthostatic vital signs have been negative My impression is that he was weak and then became deconditioned because of having the UTI. He is progressing with continued OT and physical therapy. He was to be dch to a SNF on 01/22 ([facility]) for more rehab before returning home. However, when the center received our faxed orders and saw that he is on a home medication, they refused to take him because they said they could not supply that medication. Thus he was not accepted for a discharge to there Plan: Continue PT and OT review We are still treating a UTI that grew Enterococcus faecalis, since possibly altered mental status was caused by that infection. (2) Dysarthria Conclusion/Plan: Improved but still noticeable. Patient was having persistent dysarthria with negative imaging studies including CT CTA and MRI. Plan: OT and PT to work with him. He would also benefit from speech therapy, which is ordered when he goes to a SNF We are also treating a UTI that grew Enterococcus faecalis, since possibly altered mental status was caused by that infection (3) UTI due to Enterococcus (N39.0) Conclusion/Plan: Patient's urine culture revealed Enterococcus faecalis. IV Unasyn was started. I transitioned him to po Keflex. A total 7 day course of antibx is planned. I suspect his loose stools and gas/bloating are from the antibiotic Plan: Will give a complete course of antibx, given his presenting symptoms, which may be referable to his UTI. A total 7 day course of antibx is planned. We will order a probiotic and Imodium as needed loose stools (4) Atrial fibrillation Conclusion/Plan: Patient was noted to have episodes of bradycardia with his atrial fibrillation, on January 18. He had it while standing and was symptomatic with lightheadedness. I reviewed the reconciled med list. The patient is on no heart rate-slowing me dications at home according to his reconciled med list. This is very likely from having episodes of that bradycardia that we witnessed The Echo showed a normal LVEF Plan: Continue with Eliquis anticoagulation which he takes at home as there were no acute bleed findings on his imaging studies. Qualifiers: Atrial fibrillation type: unspecified Qualified Code(s): I48.91 - Unspecified atrial fibrillation (5) HTN Conclusion/Plan: Vital signs were checked. Orthostatic vital signs have been negative, in fact BP is slightly elevated with syst BP 1550-160's According to the reconciled medication list, the patient takes sacubitril/valsartan for BP control. This is usually only prescribed when there is systolic heart failure. In addition, the patient is not on other meds for systolic heart failure like spironolactone or beta-carlton The Echo was done today and showed normal LVEF. He therefore does not need Entresto for blood pressure control Plan: We will cont with a low-dose of amlodipine 2.5 mg daily (6) Hx lymphoma The patient is on a medication called Venclexta. I have ordered it to be used here as "patient's own med". The patient had no one to go to his house to pick remover the medicine and bring it in here he said. Then he remembered his landlady could get into his apartment and I urged him to call her to have that medication brought it. I reached out to his oncologist Dr. Brown at [facility] and spoke to him today. Dr. Brown recommends that he not remain off of Venclexta very long Plan: His landlady could get into his apartment and I urged him to call her to have Venclexta brought in. - Current Meds Current Meds: Current Medications Generic Name Dose Route Start Last Admin Trade Name Chel PRN Reason Stop Dose Admin Acetaminophen 650 mg 01/17/23 12:16 01/22/23 08:11 Acetaminophen 325 Mg Tablet PO 650 mg Q4HR PRN Administration Pain 1 to 4, or Fever Apixaban 5 mg 01/18/23 09:00 01/23/23 09:01 Apixaban 5 Mg Tablet PO 5 mg BID INNA Administration Cephalexin 500 mg 01/21/23 13:00 01/23/23 13:03 Cephalexin 250 Mg Capsule PO 500 mg QID INNA Administration Ondansetron HCl 4 mg 01/18/23 08:07 01/21/23 17:14 Ondansetron Odt 4 Mg Tablet TL 4 mg Q6HR PRN Administration Nausea / Vomiting Sacubitril/ 0.5 each 01/20/23 21:00 01/23/23 09:02 Valsartan [Entresto PO Not Given 24 Mg-26 Mg Tablet]* BID INNA * Venetoclax [ 4 each 01/21/23 08:00 01/23/23 09:02 Venclexta] 100 Mg PO Not Given Tablet DAILYWM INNA Saccharomyces Boulardii 250 mg 01/21/23 17:00 01/23/23 09:01 Saccharomyces Boulardii 250 Mg Capsule PO 250 mg BIDWM INNA Administration Simethicone 80 mg 01/21/23 19:10 01/23/23 09:32 Simethicone Chew 80 Mg Tablet PO 80 mg 0900,1300,1800,2100 PRN Administration NEEDED PER PROVIDER ORDERS Sodium Chloride 10 ml 01/17/23 12:16 01/18/23 18:17 Sodium Chloride Flush 0.9% 10 Ml Syringe IVP 10 ml PRN PRN Administration NEEDED PER PROVIDER ORDERS Sodium Chloride 10 ml 01/17/23 17:00 01/23/23 09:03 Sodium Chloride Flush 0.9% 10 Ml Syringe IVP Not Given 0100,0900,1700 INNA - Lab Result Fish Bone Diagrams: 01/17/23 04:53 01/17/23 04:53 - Additional Planning My Orders: My Active Orders 01/23/23 17:00 Multivitamin W/Minerals [Theragran M] 1 tab PO DAILYWM Subjective - Subjective Patient Reports: Feeling Better, No Complaints Objective Vital Signs: Vital Signs - 24 hr 01/22/23 01/22/23 01/22/23 17:00 20:39 23:50 Temperature 36.5 C 36.4 C L 36.5 C Heart Rate [ 74 58 L 52 L Brachial] Respiratory 21 20 12 Rate Blood Pressure 139/86 H [Left Brachial artery] Blood Pressure 153/97 H 145/84 H [Right Brachial artery] O2 Saturation 94 96 96 01/23/23 01/23/23 01/23/23 05:12 06:49 16:03 Temperature 36.5 C 36.3 C L 36.4 C L Heart Rate [ 56 L 58 L 74 Brachial] Respiratory 20 24 18 Rate Blood Pressure 146/80 H 143/90 H [Left Brachial artery] Blood Pressure 146/99 H [Right Brachial artery] O2 Saturation 93 95 96 Oxygen O2 Source Room air I&O (Last 24 Hrs): Intake and Output Totals x24h 01/21/23 01/22/23 01/23/23 23:59 23:59 23:59 Intake Total 2045 1720 910 Output Total 1525 800 600 Balance 521 920 310 General: Alert, Oriented x3 HEENT: Atraumatic, Mucous membr. moist/pink, Other (He either has bilateral upper lid ptosis or swollen upper eyelids.) Neck: Supple, No JVD Neuro: Alert, Non Focal Cardiovascular: Regular rate Respiratory: No respiratory distress Abdomen: Soft, No tenderness Extremities: No clubbing, No edema - Results Results: Laboratory Results WBC 6.3 x10^3/uL (4.8-10.8) 01/17/23 04:53 RBC 4.80 10^6/uL (4.70-6.10) 01/17/23 04:53 Hgb 14.7 g/dL (14.0-18.0) 01/17/23 04:53 Hct 44.9 % (42.0-52.0) 01/17/23 04:53 MCV 93.5 fL (80.0-94.0) 01/17/23 04:53 MCH 30.6 pg (27.0-31.0) 01/17/23 04:53 MCHC 32.7 g/dL (32.0-36.0) 01/17/23 04:53 RDW 14.3 % (12.0-15.0) 01/17/23 04:53 Plt Count 141 10^3/uL (130-450) 01/17/23 04:53 MPV 10.4 fL (7.4-11.4) 01/17/23 04:53 Neut # (Auto) 3.8 10^3/uL (1.5-6.6) 01/17/23 04:53 Lymph # (Auto) 1.4 10^3/uL (1.5-3.5) L 01/17/23 04:53 [place] # (Auto) 1.1 10^3/uL (0.0-1.0) H 01/17/23 04:53 Eos # (Auto) 0.0 10^3/uL (0.0-0.7) 01/17/23 04:53 Baso # (Auto) 0.0 10^3/uL (0.0-0.1) 01/17/23 04:53 Absolute Nucleated RBC 0.00 x10^3/uL 01/17/23 04:53 Nucleated RBC % 0.0 /100WBC 01/17/23 04:53 Sodium 140 mmol/L (135-145) 01/17/23 04:53 Potassium 3.4 mmol/L (3.5-5.0) L 01/17/23 04:53 Chloride 106 mmol/L (101-111) 01/17/23 04:53 Carbon Dioxide 26 mmol/L (21-32) 01/17/23 04:53 Anion Gap 8.0 (6-13) 01/17/23 04:53 BUN 14 mg/dL (6-20) 01/17/23 04:53 Creatinine 1.1 mg/dL (0.6-1.2) 01/17/23 04:53 Estimated GFR (MDRD) 65 (>89) L 01/17/23 04:53 Glucose 108 mg/dL (70-100) H 01/17/23 04:53 POC Whole Bld Glucose 88 mg/dL (70 - 100) 01/16/23 14:13 Calcium 9.2 mg/dL (8.5-10.3) 01/17/23 04:53 Magnesium 1.9 mg/dL (1.7-2.8) 01/16/23 14:13 Total Bilirubin 1.0 mg/dL (0.2-1.0) 01/16/23 14:13 AST 21 IU/L (10-42) 01/16/23 14:13 ALT 19 IU/L (10-60) 01/16/23 14:13 Alkaline Phosphatase 72 IU/L (42-121) 01/16/23 14:13 Total Protein 6.5 g/dL (6.7-8.2) L 01/16/23 14:13 Albumin 4.0 g/dL (3.2-5.5) 01/16/23 14:13 Globulin 2.5 g/dL (2.1-4.2) 01/16/23 14:13 Albumin/Globulin Ratio 1.6 (1.0-2.2) 01/16/23 14:13 Lipase 53 U/L (22-51) H 01/16/23 14:13 Vitamin B12 419 pg/mL (180-914) 01/21/23 11:44 TSH 4.16 uIU/mL (0.34-5.60) 01/16/23 14:13 Urine Color YELLOW 01/16/23 14:06 Urine Clarity SL. CLOUDY (CLEAR) 01/16/23 14:06 Urine pH 6.5 PH (5.0-7.5) 01/16/23 14:06 Ur Specific [place] <=1.005 (1.002-1.030) 01/16/23 14:06 Urine Protein NEGATIVE mg/dL (NEGATIVE) 01/16/23 14:06 Urine Glucose (UA) NEGATIVE mg/dL (NEGATIVE) 01/16/23 14:06 Urine Ketones NEGATIVE mg/dL (NEGATIVE) 01/16/23 14:06 Urine Occult Blood TRACE-INTA (NEGATIVE) 01/16/23 14:06 Urine Nitrite NEGATIVE (NEGATIVE) 01/16/23 14:06 Urine Bilirubin NEGATIVE (NEGATIVE) 01/16/23 14:06 Urine Urobilinogen 0.2 (NORMAL) E.U./dL (NORMAL) 01/16/23 14:06 Ur Leukocyte Esterase LARGE (NEGATIVE) H 01/16/23 14:06 Urine RBC 0-5 /HPF (0-5) 01/16/23 14:06 Urine WBC >25 /HPF (0-3) H 01/16/23 14:06 Ur Squamous Epith Cells NONE SEEN (<= Few) 01/16/23 14:06 Urine Bacteria Few /HPF (None Seen) 01/16/23 14:06 Ur Microscopic Review INDICATED 01/16/23 14:06 Urine Culture Comments INDICATED 01/16/23 14:06 Urine Opiates Screen NEGATIVE (NEGATIVE) 01/16/23 14:06 Ur Oxycodone Screen NEGATIVE (NEGATIVE) 01/16/23 14:06 Urine Methadone Screen NEGATIVE (NEGATIVE) 01/16/23 14:06 Ur Propoxyphene Screen NEGATIVE (NEGATIVE) 01/16/23 14:06 Ur Barbiturates Screen NEGATIVE (NEGATIVE) 01/16/23 14:06 Ur Tricyclics Screen NEGATIVE (NEGATIVE) 01/16/23 14:06 Ur Phencyclidine Scrn NEGATIVE (NEGATIVE) 01/16/23 14:06 Ur Amphetamine Screen NEGATIVE (NEGATIVE) 01/16/23 14:06 U Methamphetamines Scrn NEGATIVE (NEGATIVE) 01/16/23 14:06 U Benzodiazepines Scrn NEGATIVE (NEGATIVE) 01/16/23 14:06 Urine Cocaine Screen NEGATIVE (NEGATIVE) 01/16/23 14:06 U Cannabinoids Screen NEGATIVE (NEGATIVE) 01/16/23 14:06 Ethyl Alcohol < 5.0 mg/dL 01/16/23 14:13 SARS-CoV-2 (PCR) NOT DETECTED 01/22/23 11:08
[2023-01-23] MEDS: MULTIVITAMIN W/MINERALS TABLET PO SCH (17:10)
[2023-01-23] MEDS: ACETAMINOPHEN 325 MG TABLET PO PRN (20:44)
[2023-01-24] MEDS: cephALEXin 250 MG CAPSULE PO SCH ×4 (08:15→21:40)
[2023-01-24] MEDS: VENETOCLAX 100 MG PO SCH (08:15)
[2023-01-24] MEDS: SACCHAROMYCES BOULARDII 250 MG CAPSULE PO SCH ×2 (08:15→16:48)
[2023-01-24] MEDS: APIXABAN 5 MG TABLET PO SCH ×2 (08:15→21:40)
[2023-01-24] MEDS: MULTIVITAMIN W/MINERALS TABLET PO SCH (08:15)
[2023-01-24] MEDS: SACUBITRIL PO SCH ×2 (08:16→21:41)
[2023-01-24] MEDS: SODIUM CHLORIDE FLUSH 0.9% 10 ML SYRINGE IVP SCH ×4 (08:16→23:38)
[2023-01-24] MEDS: VALSARTAN PO SCH ×2 (08:16→21:41)
--- NOTE | 2023-01-24 08:31 | PROVIDER PROGRESS NOTE ---
Assessment/Plan - Problem List (1) Ataxia Assessment/Plan: Patient has ataxia and poor gait of unclear etiology. This is a patient used to walk a mile a day using no walker or any equipment. His CT and CTA of head neck were negative. MRI of brain without contrast revealed no acute findings. Vital signs were checked and Orthostatic vital signs have been negative My impression is that he was weak and then became deconditioned because of having the UTI. He is progressing with continued OT and physical therapy. He was to be dch to a SNF on 01/22 ([facility]) for more rehab before returning home. However, when the center received our faxed orders and saw that he is on a home medication, they refused to take him because they said they could not supply that medication. Thus he was not accepted for a discharge to there Plan: Continue PT and OT and plan to continue this in SNF We are still treating a UTI that grew Enterococcus faecalis, since possibly altered mental status was caused by that infection. (2) Dysarthria Conclusion/Plan: Improved but still noticeable. Patient was having persistent dysarthria with negative imaging studies including CT CTA and MRI. Plan: OT and he would also benefit from speech therapy, which is ordered, to workwith him, especially when he goes to a SNF We are also treating a UTI that grew Enterococcus faecalis, since possibly altered mental status was caused by that infection (3) UTI due to Enterococcus (N39.0) Conclusion/Plan: Patient's urine culture revealed Enterococcus faecalis. He was started on p.o. Keflex then changed to Augmentin, on 01/17. Then on 01/18 IV Unasyn was started. Then on 01/21 I transitioned him to po Keflex. A total 10 day course of antibx is planned (in a male, for good prostate penetration). I suspect his loose stools and gas/bloating are from the antibiotic Plan: Will give a complete course of antibx, given his presenting symptoms, which may have been referable to his UTI. A total 10 day course of antibx is planned, to go thru 01/26 (stop date was ordered). Continue a probiotic and Imodium as needed for loose stools (4) Atrial fibrillation Conclusion/Plan: Patient was noted to have episodes of bradycardia with his atrial fibrillation, on January 18. He had it while standing and was symptomatic with lightheadedness. The patient is on no heart rate-slowing medications at home according to his reconciled med list. This is very likely from having episodes of that bradycardia that we witnessed The Echo showed a normal LVEF Telemetry has been stopped. Plan: Continue with Eliquis anticoagulation which he takes at home as there were no acute bleed findings on his imaging studies. Qualifiers: Atrial fibrillation type: unspecified Qualified Code(s): I48.91 - Unspecified atrial fibrillation (5) HTN Conclusion/Plan: According to the reconciled medication list, the patient took Entresto (sacubitril/valsartan) for BP control. Entresto is usually only prescribed when there is systolic heart failure. In addition, the patient is not on other meds for systolic heart failure like spironolactone or beta-carlton The Echo was done and showed a normal LVEF. He therefore does not need Entresto for blood pressure control; it was never ordered and should not continue going forward. Plan: We started him on and will continue with Amlodipine 2.5 mg daily (6) Hx lymphoma The patient is on a medication called Venclexta. I have ordered it to be used here as "patient's own med". The patient had no one to go to his house to bead picker the medicine and bring it in here he said. Then he remembered his landlady could get into his apartment and I urged him to call her to have that medication brought it. I reached out to his oncologist Dr. Brown at [facility] and spoke to him on 01/23. Dr. Brown recommended that he not remain off of Venclexta very long, it should be resumed. Plan: I have asked nursing to help him reach his landlady, who he said could get into his apartment and get the Venclexta and bring it in. It is already been ordered to use here as "patient's own med". - Current Meds Current Meds: Current Medications Generic Name Dose Route Start Last Admin Trade Name Freq PRN Reason Stop Dose Admin Acetaminophen 650 mg 01/17/23 12:16 01/23/23 20:44 Acetaminophen 325 Mg Tablet PO 650 mg Q4HR PRN Administration Pain 1 to 4, or Fever Apixaban 5 mg 01/18/23 09:00 01/24/23 08:15 Apixaban 5 Mg Tablet PO 5 mg BID INNA Administration Cephalexin 500 mg 01/21/23 13:00 01/24/23 08:15 Cephalexin 250 Mg Capsule PO 500 mg QID INAN Administration Multivitamins/Minerals 1 tab 01/23/23 17:00 01/24/23 08:15 Multivitamin W/Minerals Tablet PO 1 tab DAILYWM INNA Administration Ondansetron HCl 4 mg 01/18/23 08:07 01/21/23 17:14 Ondansetron Odt 4 Mg Tablet TL 4 mg Q6HR PRN Administration Nausea / Vomiting Sacubitril/ 0.5 each 01/20/23 21:00 01/24/23 08:16 Valsartan [Entresto PO Not Given 24 Mg-26 Mg Tablet]* BID INNA * Venetoclax [ 4 each 01/21/23 08:00 01/24/23 08:15 Venclexta] 100 Mg PO Not Given Tablet DAILYWM INNA Saccharomyces Boulardii 250 mg 01/21/23 17:00 01/24/23 08:15 Saccharomyces Boulardii 250 Mg Capsule PO 250 mg BIDWM INNA Administration Simethicone 80 mg 01/21/23 19:10 01/23/23 09:32 Simethicone Chew 80 Mg Tablet PO 80 mg 0900,1300,1800,2100 PRN Administration NEEDED PER PROVIDER ORDERS Sodium Chloride 10 ml 01/17/23 12:16 01/18/23 18:17 Sodium Chloride Flush 0.9% 10 Ml Syringe IVP 10 ml PRN PRN Administration NEEDED PER PROVIDER ORDERS Sodium Chloride 10 ml 01/17/23 17:00 01/23/23 23:25 Sodium Chloride Flush 0.9% 10 Ml Syringe IVP Not Given 0100,0900,1700 INNA - Lab Result Fish Bone Diagrams: 01/17/23 04:53 01/17/23 04:53 - Additional Planning My Orders: My Active Orders 01/23/23 17:00 Multivitamin W/Minerals [Theragran M] 1 tab PO DAILYWM 01/24/23 08:17 Miscellaenous Nursing Order [RC] QSHIFT Subjective - Subjective Patient Reports: No Complaints Objective Vital Signs: Vital Signs - 24 hr 01/23/23 01/23/23 01/23/23 16:03 20:55 23:31 Temperature 36.4 C L 36.7 C 36.4 C L Heart Rate [ 74 72 55 L Brachial] Respiratory 18 18 18 Rate Blood Pressure 146/99 H 171/89 H 130/88 H [Right Brachial artery] O2 Saturation 96 96 97 01/24/23 05:11 Temperature 36.4 C L Heart Rate [ 69 Brachial] Respiratory 18 Rate Blood Pressure 146/92 H [Right Brachial artery] O2 Saturation 94 Oxygen O2 Source Room air I&O (Last 24 Hrs): Intake and Output Totals x24h 01/22/23 01/23/23 01/24/23 23:59 23:59 23:59 Intake Total 1720 1650 Output Total 800 1200 800 Balance 920 450 -800 General: Alert, No acute distress HEENT: Mucous membr. moist/pink, Other (Both upper lids have ptosis and mild swelling) Neck: Supple Neuro: Alert Cardiovascular: No murmurs Respiratory: No respiratory distress Abdomen: No tenderness Extremities: No clubbing, No edema - Results Results: Laboratory Results WBC 6.3 x10^3/uL (4.8-10.8) 01/17/23 04:53 RBC 4.80 10^6/uL (4.70-6.10) 01/17/23 04:53 Hgb 14.7 g/dL (14.0-18.0) 01/17/23 04:53 Hct 44.9 % (42.0-52.0) 01/17/23 04:53 MCV 93.5 fL (80.0-94.0) 01/17/23 04:53 MCH 30.6 pg (27.0-31.0) 01/17/23 04:53 MCHC 32.7 g/dL (32.0-36.0) 01/17/23 04:53 RDW 14.3 % (12.0-15.0) 01/17/23 04:53 Plt Count 141 10^3/uL (130-450) 01/17/23 04:53 MPV 10.4 fL (7.4-11.4) 01/17/23 04:53 Neut # (Auto) 3.8 10^3/uL (1.5-6.6) 01/17/23 04:53 Lymph # (Auto) 1.4 10^3/uL (1.5-3.5) L 01/17/23 04:53 [place] # (Auto) 1.1 10^3/uL (0.0-1.0) H 01/17/23 04:53 Eos # (Auto) 0.0 10^3/uL (0.0-0.7) 01/17/23 04:53 Baso # (Auto) 0.0 10^3/uL (0.0-0.1) 01/17/23 04:53 Absolute Nucleated RBC 0.00 x10^3/uL 01/17/23 04:53 Nucleated RBC % 0.0 /100WBC 01/17/23 04:53 Sodium 140 mmol/L (135-145) 01/17/23 04:53 Potassium 3.4 mmol/L (3.5-5.0) L 01/17/23 04:53 Chloride 106 mmol/L (101-111) 01/17/23 04:53 Carbon Dioxide 26 mmol/L (21-32) 01/17/23 04:53 Anion Gap 8.0 (6-13) 01/17/23 04:53 BUN 14 mg/dL (6-20) 01/17/23 04:53 Creatinine 1.1 mg/dL (0.6-1.2) 01/17/23 04:53 Estimated GFR (MDRD) 65 (>89) L 01/17/23 04:53 Glucose 108 mg/dL (70-100) H 01/17/23 04:53 POC Whole Bld Glucose 88 mg/dL (70 - 100) 01/16/23 14:13 Calcium 9.2 mg/dL (8.5-10.3) 01/17/23 04:53 Magnesium 1.9 mg/dL (1.7-2.8) 01/16/23 14:13 Total Bilirubin 1.0 mg/dL (0.2-1.0) 01/16/23 14:13 AST 21 IU/L (10-42) 01/16/23 14:13 ALT 19 IU/L (10-60) 01/16/23 14:13 Alkaline Phosphatase 72 IU/L (42-121) 01/16/23 14:13 Total Protein 6.5 g/dL (6.7-8.2) L 01/16/23 14:13 Albumin 4.0 g/dL (3.2-5.5) 01/16/23 14:13 Globulin 2.5 g/dL (2.1-4.2) 01/16/23 14:13 Albumin/Globulin Ratio 1.6 (1.0-2.2) 01/16/23 14:13 Lipase 53 U/L (22-51) H 01/16/23 14:13 Vitamin B12 419 pg/mL (180-914) 01/21/23 11:44 TSH 4.16 uIU/mL (0.34-5.60) 01/16/23 14:13 Urine Color YELLOW 01/16/23 14:06 Urine Clarity SL. CLOUDY (CLEAR) 01/16/23 14:06 Urine pH 6.5 PH (5.0-7.5) 01/16/23 14:06 Ur Specific [place] <=1.005 (1.002-1.030) 01/16/23 14:06 Urine Protein NEGATIVE mg/dL (NEGATIVE) 01/16/23 14:06 Urine Glucose (UA) NEGATIVE mg/dL (NEGATIVE) 01/16/23 14:06 Urine Ketones NEGATIVE mg/dL (NEGATIVE) 01/16/23 14:06 Urine Occult Blood TRACE-INTA (NEGATIVE) 01/16/23 14:06 Urine Nitrite NEGATIVE (NEGATIVE) 01/16/23 14:06 Urine Bilirubin NEGATIVE (NEGATIVE) 01/16/23 14:06 Urine Urobilinogen 0.2 (NORMAL) E.U./dL (NORMAL) 01/16/23 14:06 Ur Leukocyte Esterase LARGE (NEGATIVE) H 01/16/23 14:06 Urine RBC 0-5 /HPF (0-5) 01/16/23 14:06 Urine WBC >25 /HPF (0-3) H 01/16/23 14:06 Ur Squamous Epith Cells NONE SEEN (<= Few) 01/16/23 14:06 Urine Bacteria Few /HPF (None Seen) 01/16/23 14:06 Ur Microscopic Review INDICATED 01/16/23 14:06 Urine Culture Comments INDICATED 01/16/23 14:06 Urine Opiates Screen NEGATIVE (NEGATIVE) 01/16/23 14:06 Ur Oxycodone Screen NEGATIVE (NEGATIVE) 01/16/23 14:06 Urine Methadone Screen NEGATIVE (NEGATIVE) 01/16/23 14:06 Ur Propoxyphene Screen NEGATIVE (NEGATIVE) 01/16/23 14:06 Ur Barbiturates Screen NEGATIVE (NEGATIVE) 01/16/23 14:06 Ur Tricyclics Screen NEGATIVE (NEGATIVE) 01/16/23 14:06 Ur Phencyclidine Scrn NEGATIVE (NEGATIVE) 01/16/23 14:06 Ur Amphetamine Screen NEGATIVE (NEGATIVE) 01/16/23 14:06 U Methamphetamines Scrn NEGATIVE (NEGATIVE) 01/16/23 14:06 U Benzodiazepines Scrn NEGATIVE (NEGATIVE) 01/16/23 14:06 Urine Cocaine Screen NEGATIVE (NEGATIVE) 01/16/23 14:06 U Cannabinoids Screen NEGATIVE (NEGATIVE) 01/16/23 14:06 Ethyl Alcohol < 5.0 mg/dL 01/16/23 14:13 SARS-CoV-2 (PCR) NOT DETECTED 01/22/23 11:08
[2023-01-24] MEDS: ACETAMINOPHEN 325 MG TABLET PO PRN (18:28)
[2023-01-25] MEDS: APIXABAN 5 MG TABLET PO SCH ×2 (08:01→21:13)
[2023-01-25] MEDS: cephALEXin 250 MG CAPSULE PO SCH ×4 (08:01→21:13)
[2023-01-25] MEDS: MULTIVITAMIN W/MINERALS TABLET PO SCH (08:01)
[2023-01-25] MEDS: SACCHAROMYCES BOULARDII 250 MG CAPSULE PO SCH ×2 (08:01→17:21)
[2023-01-25] MEDS: VENETOCLAX 100 MG PO SCH (08:02)
[2023-01-25] MEDS: SACUBITRIL PO SCH ×2 (08:02→21:13)
[2023-01-25] MEDS: VALSARTAN PO SCH ×2 (08:02→21:13)
[2023-01-25] MEDS: SODIUM CHLORIDE FLUSH 0.9% 10 ML SYRINGE IVP SCH ×3 (08:02→23:53)
--- NOTE | 2023-01-25 16:26 | PROVIDER PROGRESS NOTE ---
Assessment/Plan - Problem List (1) Ataxia Assessment/Plan: Patient has ataxia and poor gait of unclear etiology. This is a patient used to walk a mile a day using no walker or any equipment. His CT and CTA of head neck were negative. MRI of brain without contrast revealed no acute findings. Vital signs were checked and Orthostatic vital signs have been negative My impression is that he was weak and then became deconditioned because of having the UTI. He is progressing with continued OT and physical therapy. He was to be dch to a SNF on 01/22 ([facility]) for more rehab before returning home. However, when the center received our faxed orders and saw that he is on a home medication, they refused to take him because they said they could not supply that medication. Thus he was not accepted for a discharge to there Plan: Continue PT and OT and plan to continue rehab at a SNF before returning home We are still treating a UTI that grew Enterococcus faecalis, since possibly altered mental status was caused by that infection. (2) Dysarthria Conclusion/Plan: Improved speech but still noticeable. Patient was having persistent dysarthria with negative imaging studies including CT CTA and MRI. Plan: OT said he would also benefit from speech therapy, which is ordered to workvwith him, especially when he goes to a SNF We are also treating a UTI that grew Enterococcus faecalis, since possibly altered mental status was caused by that infection (3) UTI due to Enterococcus (N39.0) Conclusion/Plan: Patient's urine culture revealed Enterococcus faecalis. He was started on p.o. Keflex then changed to Augmentin, on 01/17. Then on 01/18 IV Unasyn was started. Then on 01/21 I transitioned him to po Keflex. A total 10 day course of antibx is planned (in a male, for good prostate penetration). I suspect his loose stools and gas/bloating are from the antibiotic Plan: Will give a complete course of antibx, given his presenting symptoms, which may have been referable to his UTI. A total 10 day course of antibx is planned, to go thru 01/26 (stop date was ordered). Continue a probiotic and Imodium as needed for loose stools (4) Atrial fibrillation Conclusion/Plan: Patient was noted to have episodes of bradycardia with his atrial fibrillation, on May 14. He had it while standing and was symptomatic with lightheadedness. The patient is on no heart rate-slowing medications at home according to his reconciled med list. This is very likely from having episodes of that bradycardia that we witnessed The Echo showed a normal LVEF Telemetry has been stopped. Plan: Continue with Eliquis anticoagulation which he takes at home as there were no acute bleed findings on his imaging studies. Qualifiers: Atrial fibrillation type: unspecified Qualified Code(s): I48.91 - Unspecified atrial fibrillation (5) HTN Conclusion/Plan: According to the reconciled medication list, the patient took Entresto (sacubitril/valsartan) for BP control. Entresto is usually only prescribed when there is systolic heart failure. In addition, the patient is not on other meds for systolic heart failure like spironolactone or beta-carlton The Echo was done and showed a normal LVEF. He therefore does not need Entresto for blood pressure control; it was never ordered and should not continue going forward. Plan: We started him on new Amlodipine and will continue with Amlodipine 2.5 mg daily (6) Hx lymphoma The patient is on a medication called Venclexta. I have ordered it to be used here as "patient's own med". The patient lives alone and had no one to go to his house to picker tender the medicine and bring it in here he said. Then he remembered his landlady could get into his apartment and I urged him to call her to have that medication brought it. Yesterday (Thursday), his RN called that number and heard a recording that the landlord's office is only open Thursday through Thursday and only 9 AM to 12 pm. I reached out to his oncologist Dr. Brown at [facility] and spoke to him on 01/23. Dr. Brown recommended that he not remain off of Venclexta very long, it should be resumed. Plan: We need to help him reach his landlady (between M-F [id number]), who he said could get into his apartment and get the Venclexta and bring it in. It is already been ordered to use here as "patient's own med". - Current Meds Current Meds: Current Medications Generic Name Dose Route Start Last Admin Trade Name Freq PRN Reason Stop Dose Admin Acetaminophen 650 mg 05/13/23 12:16 01/24/23 18:28 Acetaminophen 325 Mg Tablet PO 650 mg Q4HR PRN Administration Pain 1 to 4, or Fever Apixaban 5 mg 01/18/23 09:00 01/25/23 08:01 Apixaban 5 Mg Tablet PO 5 mg BID INNA Administration Cephalexin 500 mg 01/21/23 13:00 01/25/23 13:46 Cephalexin 250 Mg Capsule PO 01/27/23 00:01 500 mg QID INNA Administration Multivitamins/Minerals 1 tab 01/23/23 17:00 01/25/23 08:01 Multivitamin W/Minerals Tablet PO 1 tab DAILYWM INNA Administration Ondansetron HCl 4 mg 01/18/23 08:07 01/21/23 17:14 Ondansetron Odt 4 Mg Tablet TL 4 mg Q6HR PRN Administration Nausea / Vomiting Sacubitril/ 0.5 each 01/20/23 21:00 01/25/23 08:02 Valsartan [Entresto PO Not Given 24 Mg-26 Mg Tablet]* BID INNA * Venetoclax [ 4 each 01/21/23 08:00 01/25/23 08:02 Venclexta] 100 Mg PO Not Given Tablet DAILYWM INNA Saccharomyces Boulardii 250 mg 01/21/23 17:00 01/25/23 08:01 Saccharomyces Boulardii 250 Mg Capsule PO 250 mg BIDWM INNA Administration Simethicone 80 mg 01/21/23 19:10 01/23/23 09:32 Simethicone Chew 80 Mg Tablet PO 80 mg 0900,1300,1800,2100 PRN Administration NEEDED PER PROVIDER ORDERS Sodium Chloride 10 ml 01/17/23 12:16 01/18/23 18:17 Sodium Chloride Flush 0.9% 10 Ml Syringe IVP 10 ml PRN PRN Administration NEEDED PER PROVIDER ORDERS Sodium Chloride 10 ml 01/17/23 17:00 01/25/23 08:02 Sodium Chloride Flush 0.9% 10 Ml Syringe IVP Not Given 0100,0900,1700 INNA - Lab Result Fish Bone Diagrams: 01/17/23 04:53 01/17/23 04:53 Subjective - Subjective Patient Reports: Resting Comfortably, No Complaints Objective Vital Signs: Vital Signs - 24 hr 01/24/23 01/24/23 01/25/23 16:33 23:55 08:46 Temperature 36.6 C 36.4 C L 36.7 C Heart Rate [ 71 68 73 Brachial] Respiratory 20 18 16 Rate Blood Pressure 161/88 H 143/79 H 149/99 H [Left Brachial artery] O2 Saturation 97 96 94 Oxygen O2 Source Room air I&O (Last 24 Hrs): Intake and Output Totals x24h 01/23/23 01/24/23 01/25/23 23:59 23:59 23:59 Intake Total 1650 1340 980 Output Total 1200 1725 1200 Balance 450 -385 -220 General: Alert, Oriented x3 HEENT: Mucous membr. moist/pink, Other (Has chronic bilateral ptosis) Neck: Supple Neuro: Alert, Other (Speech is garbled) Cardiovascular: Regular rate Respiratory: No respiratory distress Abdomen: No tenderness Extremities: No clubbing, No edema, No tenderness/swelling - Results Results: Laboratory Results WBC 6.3 x10^3/uL (4.8-10.8) 01/17/23 04:53 RBC 4.80 10^6/uL (4.70-6.10) 01/17/23 04:53 Hgb 14.7 g/dL (14.0-18.0) 01/17/23 04:53 Hct 44.9 % (42.0-52.0) 01/17/23 04:53 MCV 93.5 fL (80.0-94.0) 01/17/23 04:53 MCH 30.6 pg (27.0-31.0) 01/17/23 04:53 MCHC 32.7 g/dL (32.0-36.0) 01/17/23 04:53 RDW 14.3 % (12.0-15.0) 01/17/23 04:53 Plt Count 141 10^3/uL (130-450) 01/17/23 04:53 MPV 10.4 fL (7.4-11.4) 01/17/23 04:53 Neut # (Auto) 3.8 10^3/uL (1.5-6.6) 01/17/23 04:53 Lymph # (Auto) 1.4 10^3/uL (1.5-3.5) L 01/17/23 04:53 [place] # (Auto) 1.1 10^3/uL (0.0-1.0) H 01/17/23 04:53 Eos # (Auto) 0.0 10^3/uL (0.0-0.7) 01/17/23 04:53 Baso # (Auto) 0.0 10^3/uL (0.0-0.1) 01/17/23 04:53 Absolute Nucleated RBC 0.00 x10^3/uL 01/17/23 04:53 Nucleated RBC % 0.0 /100WBC 01/17/23 04:53 Sodium 140 mmol/L (135-145) 01/17/23 04:53 Potassium 3.4 mmol/L (3.5-5.0) L 01/17/23 04:53 Chloride 106 mmol/L (101-111) 01/17/23 04:53 Carbon Dioxide 26 mmol/L (21-32) 01/17/23 04:53 Anion Gap 8.0 (6-13) 01/17/23 04:53 BUN 14 mg/dL (6-20) 01/17/23 04:53 Creatinine 1.1 mg/dL (0.6-1.2) 01/17/23 04:53 Estimated GFR (MDRD) 65 (>89) L 01/17/23 04:53 Glucose 108 mg/dL (70-100) H 01/17/23 04:53 POC Whole Bld Glucose 88 mg/dL (70 - 100) 01/16/23 14:13 Calcium 9.2 mg/dL (8.5-10.3) 01/17/23 04:53 Magnesium 1.9 mg/dL (1.7-2.8) 01/16/23 14:13 Total Bilirubin 1.0 mg/dL (0.2-1.0) 01/16/23 14:13 AST 21 IU/L (10-42) 01/16/23 14:13 ALT 19 IU/L (10-60) 01/16/23 14:13 Alkaline Phosphatase 72 IU/L (42-121) 01/16/23 14:13 Total Protein 6.5 g/dL (6.7-8.2) L 01/16/23 14:13 Albumin 4.0 g/dL (3.2-5.5) 01/16/23 14:13 Globulin 2.5 g/dL (2.1-4.2) 01/16/23 14:13 Albumin/Globulin Ratio 1.6 (1.0-2.2) 01/16/23 14:13 Lipase 53 U/L (22-51) H 01/16/23 14:13 Vitamin B12 419 pg/mL (180-914) 01/21/23 11:44 TSH 4.16 uIU/mL (0.34-5.60) 01/16/23 14:13 Urine Color YELLOW 01/16/23 14:06 Urine Clarity SL. CLOUDY (CLEAR) 01/16/23 14:06 Urine pH 6.5 PH (5.0-7.5) 01/16/23 14:06 Ur Specific [place] <=1.005 (1.002-1.030) 01/16/23 14:06 Urine Protein NEGATIVE mg/dL (NEGATIVE) 01/16/23 14:06 Urine Glucose (UA) NEGATIVE mg/dL (NEGATIVE) 01/16/23 14:06 Urine Ketones NEGATIVE mg/dL (NEGATIVE) 01/16/23 14:06 Urine Occult Blood TRACE-INTA (NEGATIVE) 01/16/23 14:06 Urine Nitrite NEGATIVE (NEGATIVE) 01/16/23 14:06 Urine Bilirubin NEGATIVE (NEGATIVE) 01/16/23 14:06 Urine Urobilinogen 0.2 (NORMAL) E.U./dL (NORMAL) 01/16/23 14:06 Ur Leukocyte Esterase LARGE (NEGATIVE) H 01/16/23 14:06 Urine RBC 0-5 /HPF (0-5) 01/16/23 14:06 Urine WBC >25 /HPF (0-3) H 01/16/23 14:06 Ur Squamous Epith Cells NONE SEEN (<= Few) 01/16/23 14:06 Urine Bacteria Few /HPF (None Seen) 01/16/23 14:06 Ur Microscopic Review INDICATED 01/16/23 14:06 Urine Culture Comments INDICATED 01/16/23 14:06 Urine Opiates Screen NEGATIVE (NEGATIVE) 01/16/23 14:06 Ur Oxycodone Screen NEGATIVE (NEGATIVE) 01/16/23 14:06 Urine Methadone Screen NEGATIVE (NEGATIVE) 01/16/23 14:06 Ur Propoxyphene Screen NEGATIVE (NEGATIVE) 01/16/23 14:06 Ur Barbiturates Screen NEGATIVE (NEGATIVE) 01/16/23 14:06 Ur Tricyclics Screen NEGATIVE (NEGATIVE) 01/16/23 14:06 Ur Phencyclidine Scrn NEGATIVE (NEGATIVE) 01/16/23 14:06 Ur Amphetamine Screen NEGATIVE (NEGATIVE) 01/16/23 14:06 U Methamphetamines Scrn NEGATIVE (NEGATIVE) 01/16/23 14:06 U Benzodiazepines Scrn NEGATIVE (NEGATIVE) 01/16/23 14:06 Urine Cocaine Screen NEGATIVE (NEGATIVE) 01/16/23 14:06 U Cannabinoids Screen NEGATIVE (NEGATIVE) 01/16/23 14:06 Ethyl Alcohol < 5.0 mg/dL 01/16/23 14:13 SARS-CoV-2 (PCR) NOT DETECTED 01/22/23 11:08
[2023-01-25] MEDS: ACETAMINOPHEN 325 MG TABLET PO PRN (21:13)
[2023-01-26] MEDS: SIMETHICONE CHEW 80 MG TABLET PO PRN ×3 (00:21→09:34)
[2023-01-26] MEDS: ZINC OXIDE 20% OINT 30 GM TUBE TOP PRN ×2 (00:25→05:56)
[2023-01-26 08:08] VITALS: BP 141/81
[2023-01-26 08:34] LABS: CALCIUM 9.4 mg/dL (8.5-10.3); CREATININE 1.1 mg/dL (0.6-1.2); POTASSIUM 3.5 mmol/L (3.5-5.0)
[2023-01-26] MEDS: cephALEXin 250 MG CAPSULE PO SCH ×2 (08:41→15:25)
[2023-01-26] MEDS: MULTIVITAMIN W/MINERALS TABLET PO SCH (08:41)
[2023-01-26] MEDS: APIXABAN 5 MG TABLET PO SCH (08:42)
[2023-01-26] MEDS: SACCHAROMYCES BOULARDII 250 MG CAPSULE PO SCH (08:42)
[2023-01-26] MEDS: SODIUM CHLORIDE FLUSH 0.9% 10 ML SYRINGE IVP SCH (08:42)
[2023-01-26] MEDS ORDERED: NYSTATIN POWDER 15 GM TOP SCH (09:00)
[2023-01-26] MEDS: ACETAMINOPHEN 325 MG TABLET PO PRN (09:34)
[2023-01-26] MEDS: SACUBITRIL PO SCH (15:21)
[2023-01-26] MEDS: VALSARTAN PO SCH (15:21)
[2023-01-26] MEDS: VENETOCLAX 100 MG PO SCH (15:34)
--- NOTE | 2023-01-26 16:20 | Discharge Plan ---
Discharge Plan Problem Reviewed?: Yes Disposition: [address] DC/Xfer Condition: Stable Prescriptions: Albuterol Sulf [Ventolin Hfa Inhaler] 1 - 2 puffs INH Q4HR PRN #1 each PRN Reason: Shortness Of Air/Wheezing Saccharomyces Boulardii [Florastor] 250 mg PO BIDWM #6 cap Loperamide [Imodium] 2 mg PO QID PRN #10 cap PRN Reason: Diarrhea cephALEXin [Keflex] 500 mg PO QID #10 cap Simethicone [Mylicon] 80 mg PO 0900,1300,1800,2100 PRN #10 tab PRN Reason: As Needed Per Provider Orders Amlodipine Besylate [Norvasc] 2.5 mg PO DAILY #30 tablet Activity Restrictions: Activity as Tolerated Weight Bearing: Full Weight Instruction Topics: ED Altered Loc Health Concerns: The patient was hospitalized due to weakness and ataxia and dysarthria. The stroke work-up was entirely neg. He did have a UTI, and may have had these symptoms due to the infection. Improved with IV fluids and antibiotics and started working with PT and OT. He needs further rehab with PT, OT and Speech Therapist at a SNF before returning home. Plan of Treatment: Daily PT, OT and Speech Therapy. Finish treatment for the UTI. Care Goals: Improvement in symptoms and stabilization are the goals. Assessment: The patient understands and is agreeable with the plan. No Smoking: If you smoke, Please STOP! Call for help.
--- NOTE | 2023-01-26 16:24 | DISCHARGE SUMMARY ---
Discharge Summary Admit Date: 01/17/23 Discharge Date: 01/26/23 Discharging Provider: Sherley Nino MD Primary Care Provider: [facility] Code Status: Attempt Resuscitation Condition at Discharge: Stable Discharge Disposition: 61 Swing Bed DC/Xfer - DIAGNOSES Discharge Diagnoses with Status of Each Condition: 1. Acute strokelike symptoms 2. Ataxia 3. Dysarthria 4. UTI due to Enterococcus 5. Chronic atrial fibrillation 6. Hypertension 7. History of lymphoma - HPI History of Present Illness: Is a 72-year-old male with no complaints until yesterday was found having problems with gait instability and also slurred speech. He did complain of dizziness but does not admit to vertigo. He notes he has had no similar problems in the past. Urine tox screen and alcohol level were negativCT of head with angiography was negative. MRI was done day of admission without contrast and did not reveal any acute abnormalities. Patient was continuing to have the symptoms that he presented with while in the emergency room. There was no focal symptoms per se. Patient was found to have an abnormal urine analysis although did not have any urinary symptoms. His UA showed large leukocyte esterase 0-5 RBCs, urine RBC 0-5 urine squamous epithelial cells none urine bacteria few patient was started on oral Keflex for possible UTI. 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 Sees oncology at [place]. ) HEENT: reports: None Psych: reports: None Musculoskeletal: reports: None - Past Surgical History Cardiovascular: reports: Coronary stent - CONSULTS | PROCEDURES Procedures: Head and neck CT angiogram head no acute intracranial abnormalities. Moderate age-related senescent changes and sequela of chronic small vessel ischemic disease. Extensive atherosclerotic vascular calcification throughout the intracranial arterial vasculature. He had moderate stenosis involving the intracranial segment of the internal carotid but no occlusion. Multilevel cervical spondylosis seen. No acute fractures. Admission chest x-ray had mildly prominent interstitium. Possibly edema or atypical infection. No dense consolidation or pleural effusion. Brain MRI was without acute intracranial abnormality. Microvascular ischemic disease and age-related cerebral volume loss noted. Abdomen/pelvis CT without acute process. Appendix not seen. Coronary artery disease was seen. Fat-containing left greater than right inguinal hernias. Diverticulosis of the descending and sigmoid colon without evidence of diverticulitis. Echocardiogram done January 22 had a normal left ventricle size. Mild concentric left ventricular hypertrophy. Overall ejection fraction at 55 to 60% with indeterminate left ventricular filling pattern due to atrial fibrillation. Right ventricle normal. Right ventricle systolic function normal. Mild increase in left atrial volume index at 41 mils per meter squared. Mild right atrial enlargement. Aortic valve sclerosis without stenosis. Thickened mitral valve without stenosis. Trace tricuspid regurg. Normal right ventricular pressure at 35 mmHg. The RVSP at rest was 28. - HOSPITAL COURSE Hospital Course: (1) Ataxia Assessment/Plan: Patient has ataxia and poor gait of unclear etiology. This is a patient used to walk a mile a day using no walker or any equipment. His CT and CTA of head neck were negative. MRI of brain without contrast revealed no acute findings. Vital signs were checked and Orthostatic vital signs have been negative My impression is that he was weak and then became deconditioned because of having the UTI. He is progressing with continued OT and physical therapy. He was to be dch to a SNF on 01/22 ([facility]) for more rehab before returning home. However, when the center received our faxed orders and saw that he is on a home medication, they refused to take him because they said they could not supply that medication. Thus he was not accepted for a discharge to there He will be transition to swing bed status and complete physical therapy there since there is no long term facility that is willing to take him. (2) Dysarthria Conclusion/Plan: Improved speech but still noticeable. Patient was having persistent dysarthria with negative imaging studies including CT CTA and MRI. Occupational Therapy will be seeing the patient. (3) UTI due to Enterococcus (N39.0) Conclusion/Plan: Patient's urine culture revealed Enterococcus faecalis. He was started on p.o. Keflex then changed to Augmentin, on 01/17. Then on 01/18 IV Unasyn was started. Then on 01/21 I transitioned him to po Keflex. A total 10 day course of antibx is planned (in a male, for good prostate penetration). I suspect his loose stools and gas/bloating are from the antibiotic. He completed antibiotic therapy with Keflex on January 26. (4) Atrial fibrillation Conclusion/Plan: Patient was noted to have episodes of bradycardia with his atrial fibrillation, on January 18. He had it while standing and was symptomatic with lightheadedness. The patient is on no heart rate-slowing medications at home according to his reconciled med list. This is very likely from having episodes of that bradycardia that we witnessed The Echo showed a normal LVEF Telemetry has been stopped. Continue with Eliquis anticoagulation which he takes at home as there were no acute bleed findings on his imaging studies. Qualifiers: Atrial fibrillation type: unspecified Qualified Code(s): I48.91 - Unspecified atrial fibrillation (5) HTN Conclusion/Plan: According to the reconciled medication list, the patient took Entresto (sacubitril/valsartan) for BP control. Entresto is usually only prescribed when there is systolic heart failure. In addition, the patient is not on other meds for systolic heart failure like spironolactone or beta-carlton The Echo was done and showed a normal LVEF. He therefore does not need Entresto for blood pressure control; it was never ordered and should not continue going forward. We started him on new Amlodipine and will continue with Amlodipine 2.5 mg daily (6) Hx lymphoma The patient is on a medication called Venclexta. I have ordered it to be used here as "patient's own med". 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 Then he remembered his landlady could get into his apartment and I urged him to call her to have that medication brought it. his RN called that number and heard a recording that the landlord's office is only open Thursday through Thursday and only 9 AM to 12 pm. I reached out to his oncologist Dr. Brown at [facility] and spoke to him on 01/23. Dr. Brown recommended that he not remain off of Venclexta very long, it should . Permission was given for slightly to get into his apartment. Bring him his meds. It is she that noted that he is not in a safe home condition with regards to hoarding, clutter, and overall hygiene. The patient was discharged in stable condition. Temperature is 36.4. Heart rate 58. Blood pressure 155/94. Respirations 20. 95% on room air. He is an alert oriented male who is in no acute distress. Pleasant, cooperative. Still some slight slurring of words word enunciation is not quite correct yet. But he is not evidencing any dysphagia, and can swallow properly without choking. Neck is supple. Lungs are clear. Irregular rate and rhythm that is rate controlled. The abdomen is soft and nontender. The feet have no edema. Standing Romberg is not normal. [id number] is not normal. In order to maintain balance he has to have a wide based stance. Greater than 30 minutes was spent coordinating discharge to swing bed status - ALLERGIES Allergies/Adverse Reactions: Allergies Allergy/AdvReac Type Severity Reaction Status Date / Time corn Allergy Respiratory Verified 01/17/23 14:16 peanut Allergy Respiratory Verified 01/17/23 14:16 - MEDICATIONS Home Medications: Ambulatory Orders Medication Instructions Recorded Confirmed Albuterol Sulf [Ventolin Hfa 1 - 2 puffs INH Q4HR PRN #1 each 01/16/23 01/27/23 Inhaler] Apixaban [Eliquis] 5 mg PO BID 01/17/23 01/27/23 Omeprazole Magnesium 20 mg PO QDAC 01/19/23 01/27/23 Venetoclax [Venclexta] 400 mg PO DAILYWM 01/19/23 01/27/23 Amlodipine Besylate [Norvasc] 2.5 mg PO DAILY #30 tablet 01/22/23 01/27/23 Loperamide [Imodium] 2 mg PO QID PRN #10 cap 01/22/23 01/27/23 Saccharomyces Boulardii [Florastor] 250 mg PO BIDWM #6 cap 01/22/23 01/27/23 Simethicone [Mylicon] 80 mg PO 0900,1300,1800,2100 PRN 01/22/23 01/27/23 #10 tab Sacubitril/Valsartan [Entresto 24 1 tab PO BID 01/27/23 01/27/23 mg-26 mg Tablet] - LABS Result Diagrams: 01/17/23 04:53 01/26/23 08:17
== END 2023-01-26 16:43 | disposition swing bed (61) | DRG 92 ==
LOC: ED 13:18 → MS2 01-17 12:16 → OBSVTOIN 01-18 11:31
PROVIDERS: ADMIT Specialist; ATTEND Specialist
DX: R27.0 Ataxia, unspecified (principal); I48.20 Chronic atrial fibrillation, unspecified; N39.0 Urinary tract infection, site not specified; R47.1 Dysarthria and anarthria; B95.2 Enterococcus as the cause of diseases classified elsewhere; I10 Essential (primary) hypertension; Z85.72 Personal history of non-Hodgkin lymphomas; I25.10 Atherosclerotic heart disease of native coronary artery without angina pectoris; Z95.5 Presence of coronary angioplasty implant and graft; E86.0 Dehydration; R53.1 Weakness; R00.1 Bradycardia, unspecified; R41.82 Altered mental status, unspecified
CPT/HCPCS: 36415; 70496; 70498; 70551; 71045; 74177; 80048; 80053; 80306; 80320; 81001; 82607; 83690; 83735; 84443; 85025; 87077; 87086; 87181; 87635; 92523; 93005; 93306; 96360; 96361; 97110; 97112; 97162; 97166; 97530; 97535; 99284; 99285; A9270; G0378; Q0162; Q9963; Q9967; 81003

== ENCOUNTER 2023-01-26 14:28 | Inpatient (IN) | payer MEDICARE, OTHER ==
[2023-01-26] MEDS ORDERED: IBUPROFEN 400 MG TABLET PO PRN (16:25)
[2023-01-26] MEDS ORDERED: oxyCODONE 5 MG TABLET PO PRN (16:25)
[2023-01-26] MEDS ORDERED: LOPERAMIDE 2 MG CAPSULE PO PRN (16:27)
[2023-01-26] MEDS ORDERED: ONDANSETRON ODT 4 MG TABLET TL PRN (17:54)
[2023-01-26] MEDS ORDERED: ALBUTEROL NEB 2.5 MG/3 ML INH PRN (17:54)
[2023-01-26] MEDS ORDERED: cephALEXin 250 MG CAPSULE PO SCH (18:00)
[2023-01-26] MEDS: ZINC OXIDE 20% OINT 30 GM TUBE TOP SCH (22:01)
[2023-01-26] MEDS: APIXABAN 5 MG TABLET PO SCH (22:01)
[2023-01-26] MEDS: ATORVASTATIN 40 MG TABLET PO SCH (22:01)
[2023-01-26] MEDS: NYSTATIN POWDER 15 GM TOP SCH (22:01)
[2023-01-26] MEDS: ACETAMINOPHEN 325 MG TABLET PO PRN (22:28)
[2023-01-26] MEDS: SIMETHICONE CHEW 80 MG TABLET PO PRN (22:30)
[2023-01-27] MEDS: PANTOPRAZOLE 40 MG TABLET PO SCH (06:32)
[2023-01-27] MEDS: MULTIVITAMIN W/MINERALS TABLET PO SCH (08:03)
[2023-01-27] MEDS: SACCHAROMYCES BOULARDII 250 MG CAPSULE PO SCH ×2 (08:03→17:10)
[2023-01-27] MEDS: VENETOCLAX 100 MG PO SCH (08:03)
[2023-01-27] MEDS ORDERED: lisinopriL 5 MG TABLET PO SCH (09:00)
[2023-01-27] MEDS ORDERED: METOPROLOL SUCCINATE 25 MG TABLET PO SCH (09:00)
[2023-01-27] MEDS: amLODIPine 5 MG TABLET PO SCH (09:36)
[2023-01-27] MEDS: NYSTATIN POWDER 15 GM TOP SCH ×2 (09:37→21:19)
[2023-01-27] MEDS: VALSARTAN PO SCH (09:37)
[2023-01-27] MEDS: SACUBITRIL PO SCH (09:37)
[2023-01-27] MEDS: APIXABAN 5 MG TABLET PO SCH ×2 (09:37→21:19)
[2023-01-27] MEDS: ZINC OXIDE 20% OINT 30 GM TUBE TOP SCH ×2 (09:37→21:19)
[2023-01-27] MEDS: ATORVASTATIN 40 MG TABLET PO SCH (21:19)
[2023-01-28] MEDS: PANTOPRAZOLE 40 MG TABLET PO SCH (05:15)
[2023-01-28] MEDS: ZINC OXIDE 20% OINT 30 GM TUBE TOP SCH ×2 (08:30→22:05)
[2023-01-28] MEDS: amLODIPine 5 MG TABLET PO SCH (08:31)
[2023-01-28] MEDS: SACUBITRIL PO SCH (08:31)
[2023-01-28] MEDS: VENETOCLAX 100 MG PO SCH (08:31)
[2023-01-28] MEDS: APIXABAN 5 MG TABLET PO SCH ×2 (08:31→22:04)
[2023-01-28] MEDS: NYSTATIN POWDER 15 GM TOP SCH ×2 (08:31→22:06)
[2023-01-28] MEDS: SACCHAROMYCES BOULARDII 250 MG CAPSULE PO SCH ×2 (08:31→17:21)
[2023-01-28] MEDS: VALSARTAN PO SCH (08:31)
[2023-01-28] MEDS: MULTIVITAMIN W/MINERALS TABLET PO SCH (08:31)
[2023-01-28] MEDS: ATORVASTATIN 40 MG TABLET PO SCH (22:04)
[2023-01-29] MEDS: PANTOPRAZOLE 40 MG TABLET PO SCH (05:26)
[2023-01-29] MEDS: VALSARTAN PO SCH (08:25)
[2023-01-29] MEDS: MULTIVITAMIN W/MINERALS TABLET PO SCH (08:25)
[2023-01-29] MEDS: SACUBITRIL PO SCH (08:25)
[2023-01-29] MEDS: SACCHAROMYCES BOULARDII 250 MG CAPSULE PO SCH ×2 (08:25→16:50)
[2023-01-29] MEDS: VENETOCLAX 100 MG PO SCH (08:25)
[2023-01-29] MEDS: NYSTATIN POWDER 15 GM TOP SCH ×2 (08:25→21:10)
[2023-01-29] MEDS: amLODIPine 5 MG TABLET PO SCH (08:26)
[2023-01-29] MEDS: ZINC OXIDE 20% OINT 30 GM TUBE TOP SCH ×2 (08:26→21:10)
[2023-01-29] MEDS: APIXABAN 5 MG TABLET PO SCH ×2 (08:26→21:08)
[2023-01-29] MEDS: SIMETHICONE CHEW 80 MG TABLET PO PRN ×2 (08:44→21:08)
--- NOTE | 2023-01-29 17:55 | HISTORY & PHYSICAL EXAMINATION ---
Chief Complaint - Chief Complaint Chief Complaint: ataxia History of Present Illness - Admitted From Admitted From:: Acute care stay and is now swing bed - History Obtained From Records Reviewed: [facility] History obtained from: Patient in [facility] Exam Limitations: None - History of Present Illness HPI Comment/Other: This gentleman was admitted January 17 for symptoms of a stroke. He presented with speech difficulty and gait instability that were sudden in onset. MRI with angiogram had no acute abnormalities. He was found to have an abnormal urinalysis and he was found to have a UTI and we postulate that he may have had the symptoms because of the UTI but we are not sure why he continued to have ataxia and gait instability. He improved with IV fluids and antibiotics and began working with PT and OT. He was felt to need continued therapy and was to be transition to a retirement facility. However the patient takes Venclexta. It is prohibitively expensive and every facility our social work is contacted stated they could not take the patient on the basis of the cost of the drug. As such the patient was transition to swing bed status in our hospital on January 26. With his January 23 physical therapy evaluation and treatment he was ambulating 200 feet, able to march, do heel toe raises, and had good endurance. He was inconsistent with transfers and needed to verbal cues for hand placement for pushoff in order to stand safely. He was also having problems with balance and that he would have increased swaying when his feet were brought together. They recommended a front wheel walker. He lives alone. And they continue to recommend either retirement facility discharge or swing bed discharge. History - Past Medical History Cardiovascular: reports: Coronary artery disease, Atrial fibrillation Respiratory: reports: None Neuro: reports: None Endocrine/Autoimmune: reports: None GI: reports: None : reports: Other HEENT: reports: None Psych: reports: None Musculoskeletal: reports: None Derm: reports: None Other Past Medical History: hx of falls, ataxia, dysarthria, NSTEMI - Past Surgical History Cardiovascular: reports: Coronary stent - Family & Social History Living Situation: Alone - Substance History Use: Uses substance without health or social issues: NONE - POLST Patient has POLST: No Meds/Allgy - Home Medications Home Medications: Ambulatory Orders Medication Instructions Recorded Confirmed Albuterol Sulf [Ventolin Hfa 1 - 2 puffs INH Q4HR PRN #1 each 01/16/23 01/27/23 Inhaler] Apixaban [Eliquis] 5 mg PO BID 01/17/23 01/27/23 Omeprazole Magnesium 20 mg PO QDAC 01/19/23 01/27/23 Venetoclax [Venclexta] 400 mg PO DAILYWM 01/19/23 01/27/23 Amlodipine Besylate [Norvasc] 2.5 mg PO DAILY #30 tablet 01/22/23 01/27/23 Loperamide [Imodium] 2 mg PO QID PRN #10 cap 01/22/23 01/27/23 Saccharomyces Boulardii [Florastor] 250 mg PO BIDWM #6 cap 01/22/23 01/27/23 Simethicone [Mylicon] 80 mg PO 0900,1300,1800,2100 PRN 01/22/23 01/27/23 #10 tab Sacubitril/Valsartan [Entresto 24 1 tab PO BID 01/27/23 01/27/23 mg-26 mg Tablet] - Allergies Allergies/Adverse Reactions: Allergies Allergy/AdvReac Type Severity Reaction Status Date / Time corn Allergy Respiratory Verified 01/17/23 14:16 peanut Allergy Respiratory Verified 01/17/23 14:16 Review of Systems - Constitutional Constitutional: reports: Weakness. denies: Fatigue, Fever, Chills, Malaise, Poor appetite - Eyes Eyes: denies: Pain, Irritation, Amaurosis - Ears, Nose & Throat Ears, Nose & Throat: denies: Hearing aids, Sore throat, Hoarseness - Cardiovascular Cariovascular: denies: Irregular heart rate, Palpitations, Chest pain, Edema - Respiratory Respiratory: denies: Cough, Wheezing, SOB at rest, SOB with exertion - Gastrointestinal Gastrointestinal: denies: Abdominal pain, Abdominal distention, Constipation - Genitourinary Genitourinary: denies: Dysuria, Frequency, Urgency - Musculoskeletal Musculoskeletal: denies: Muscle pain, Back pain, Muscle aches, Joint pain - Integumentary Integumentary: denies: Rash, Pruritis, Lesions - Neurological Neurological: reports: General weakness, Abnormal gait, Incoordination. denies: Focal weakness, Headache, Dizziness - Psychiatric Psychiatric: denies: Depression, Anxiety, Suicidal - Endocrine Endocrine: denies: Polyuria, Polydypsia - Hematologic/Lymphatic Hematologic/Lymphatic: denies: Anemia, Bruising Prior Level of Functionality: He lives alone, independent in everything except driving. He uses a bus and has a friend that he can call to pick him up. He does not have any DME at home. Home is probably not completely safe. He may be a hoarder. Exam - Vital Signs Reviewed Vital Signs: Yes Vital Signs: Vital Signs x48h Temp Pulse Resp BP Pulse Ox 01/29/23 15:31 36.4 C L 85 20 150/99 H 93 - Physical Exam General Appearance: positive: No acute distress, Alert Eyes Bilateral: positive: PERRL, EOMI ENT: positive: Pharynx nml Neck: positive: No JVD. negative: Stiff neck Respiratory: positive: No respiratory distress. negative: Wheezes, Rales, Rhonchi Cardiovascular: positive: Regular rate & rhythm Peripheral Pulses: positive: 2+ Abdomen: positive: Non-tender, No organomegaly, Nml bowel sounds Skin: positive: Warm, Dry. negative: Diaphoresis Extremities: positive: Non-tender, Full ROM, No pedal edema Neurologic/Psychiatric: positive: Oriented x3, CN's nml (2-12). negative: Motor nml (Ataxia is a primary deficit that I am noting. Sways when I have him stand, and [id number] is not consistent. Again, no clear explanation why this pa tient had sudden ataxia.) Conclusion/Plan - Problem List (1) Ataxia Conclusion/Plan: At this time our goal is to get him with enough balance that he can ambulate in his home, complete his activities of daily living, and stay safe within his house. He will be seen by PT and OT on a scheduled basis. Goals have been set by them and the patient is aware of them and he promises to follow through with working with them. It is still puzzling is why this gentleman presented with sudden strokelike symptoms such as his dysarthria and ataxia. He still could have had a small stroke that we are not recognizing on our imaging studies. He clinically presents as such. He is already anticoagulated with Eliquis. As such we will not be starting aspirin. I will order a fasting lipid panel to see if he would be candidate for us to add a statin (2) Atrial fibrillation Conclusion/Plan: Rate is controlled without any rate lowering drugs. Continue Eliquis. Qualifiers: Atrial fibrillation type: permanent Qualified Code(s): I48.21 - Permanent atrial fibrillation (3) Hypertension Conclusion/Plan: This was a new diagnosis noted with this most recent admission. What was also noted is that he was on Entresto but he has normal LV. As such Entresto was discontinued and a new medication of amlodipine 2.5 mg started. That will be continued at discharge. Qualifiers: Hypertension type: primary hypertension Qualified Code(s): I10 - Essential (primary) hypertension (4) Lymphoma Conclusion/Plan: Patient has his own Venclexta brought in from home now. That will be resumed at the urging of his oncologist. Qualifiers: Lymphoma type: unspecified type - Lab Results Lab results reviewed: Yes Core Measures - Anticipated LOS I expect patient to be DC'd or transferred within 96 hours.: Yes - DVT/VTE - Prophylaxis VTE/DVT Prophylaxis med ordered at admit?: Yes
--- NOTE | 2023-01-29 18:20 | PROVIDER PROGRESS NOTE ---
Subjective - Prog Note Date Prog Note Date: 01/29/23 Prog Note Time: 18:18 - Subjective Pt reports feeling: Improved Subjective: He continues to work with physical therapy and Occupational Therapy. He is now ambulating 300 feet with a front wheel walker using standby assist. Occasional verbal cues still needed for an upright posture and to improve his balance. The walker is going to be a problem in his house. It is quite cluttered. It will often will not fit through the door. So physical therapy changed him over to a quad cane. He was able to demonstrate adequate mobility and coordination with a quad cane. He still requiring cues for hand placement. Several minor loss of balance with quad cane ambulation short distances. They challenged him with dynamic balance activities of retrowalking, sidestepping, and he was able to do it but still needs work. We had thought that he would be able to be discharged tomorrow but they feel that he is still not safe due to his balance in a cluttered household Current Medications - Current Medications Current Medications: Active Medications Acetaminophen (Acetaminophen 325 Mg Tablet) 650 mg PO Q4HR PRN PRN Reason: Pain 1 to 4, or Fever Last Admin: 01/26/23 22:28 Dose: 650 mg Albuterol (Albuterol Neb 2.5 Mg/3 Ml) 2.5 mg INH RTQ4H PRN PRN Reason: Wheezing Amlodipine Besylate (Amlodipine 5 Mg Tablet) 2.5 mg PO DAILY [facility] Last Admin: 01/29/23 08:26 Dose: 2.5 mg Apixaban (Apixaban 5 Mg Tablet) 5 mg PO BID [facility] Last Admin: 01/29/23 08:26 Dose: 5 mg Atorvastatin Calcium (Atorvastatin 40 Mg Tablet) 20 mg PO QPM [facility] Last Admin: 01/28/23 22:04 Dose: 20 mg Ibuprofen (Ibuprofen 400 Mg Tablet) 400 mg PO Q4HR PRN PRN Reason: Pain 1 to 4 Loperamide HCl (Loperamide 2 Mg Capsule) 2 mg PO QID PRN PRN Reason: Diarrhea Multi-Ingredient Ointment (Zinc Oxide 20% Oint 30 Gm Tube) 1 applic TOP BID [facility] Last Admin: 01/29/23 08:26 Dose: 1 applic Multivitamins/Minerals (Multivitamin W/Minerals Tablet) 1 tab PO DAILYWM [facility] Last Admin: 01/29/23 08:25 Dose: 1 tab Nystatin (Nystatin Powder 15 Gm) 1 applic TOP BID [facility] Last Admin: 01/29/23 08:25 Dose: 1 applic Ondansetron HCl (Ondansetron Odt 4 Mg Tablet) 4 mg TL Q6HR PRN PRN Reason: Nausea / Vomiting Oxycodone HCl (Oxycodone 5 Mg Tablet) 5 mg PO Q4HR PRN PRN Reason: Pain 5 to 7 Pantoprazole Sodium (Pantoprazole 40 Mg Tablet) 40 mg PO QDAC [facility] Last Admin: 01/29/23 05:26 Dose: 40 mg Venetoclax [ Venclexta] 100 Mg Tablet 4 each PO DAILYWM [facility] Last Admin: 01/29/23 08:25 Dose: 4 each Sacubiril/Valsartan [Entresto 24mg-26mg Tab] 1 each PO DAILY [facility] Last Admin: 01/29/23 08:25 Dose: 1 each Saccharomyces Boulardii (Saccharomyces Boulardii 250 Mg Capsule) 250 mg PO BIDW [facility] [place] Last Admin: 01/29/23 16:50 Dose: 250 mg Simethicone (Simethicone Chew 80 Mg Tablet) 80 mg PO 0900,1300,1800,2100 PRN PRN Reason: NEEDED PER PROVIDER ORDERS Last Admin: 01/29/23 08:44 Dose: 80 mg Apixaban [Eliquis] 5 mg PO BID 01/17/23 Omeprazole Magnesium 20 mg PO QDAC 01/19/23 Venetoclax [Venclexta] 400 mg PO DAILYWM 01/19/23 Sacubitril/Valsartan [Entresto 24 mg-26 mg Tablet] 1 tab PO BID 01/27/23 Objective - Vital Signs/Intake & Output Reviewed Vital Signs: Yes Vital Signs: Vital Signs x48h Temp Pulse Resp BP Pulse Ox 01/29/23 15:31 36.4 C L 85 20 150/99 H 93 Intake & Output: Intake & Output 01/26/23 01/27/23 01/28/23 01/29/23 23:59 23:59 23:59 23:59 Intake Total 660 1061 1490 1240 Output Total 900 1900 2125 1950 Balance -240 -839 -635 -710 - Objective General Appearance: positive: No acute distress, Alert Eyes Bilateral: positive: PERRL ENT: positive: Pharynx nml Neck: positive: No JVD Respiratory: positive: No respiratory distress Cardiovascular: positive: Irregularly irregular Abdomen: positive: Non-tender, No organomegaly, Nml bowel sounds Skin: positive: Warm, Dry Extremities: positive: Full ROM, No pedal edema Neurologic/Psychiatric: positive: Oriented x3, CN's nml (2-12). negative: Motor nml (When I discharged him Romberg was positive, [id number] was off. Both of those have improved substantially on today's exam.), Slurred/abnml speech (The slight dysarthria that he was expressing at discharge on the has resolved. I am not hearing any issues today) Assessment/Plan - Problem List (1) Ataxia Impression: Continue to work with PT and OT until they cleared him for discharge to home. They are initially requested a front wheeled walker prescription from me. But when they change him to a quad cane they have rescinded their request He is 100% service-connected . His primary care provider is at the [facility] in [place]. Social work is done quite a bit of back from work on this gentleman and if he were to ever need to be placed (without the Venclexta) he does have a pillowcase cutter that would find placement for him. (2) Atrial fibrillation Impression: Rate has been consistently stable. Lowest is in the 60s, highest is 92. Still on anticoagulation without any change. Qualifiers: Atrial fibrillation type: permanent Qualified Code(s): I48.21 - Permanent atrial fibrillation (3) Hypertension Impression: Blood pressure is 146, 152, 150 systolic. Diastolic high is 99. Plan is to increase amlodipine to 5 mg daily Qualifiers: Hypertension type: primary hypertension Qualified Code(s): I10 - Essential (primary) hypertension (4) Lymphoma Impression: To stay on Venclexta. Qualifiers: Lymphoma type: unspecified type
[2023-01-29] MEDS: ATORVASTATIN 40 MG TABLET PO SCH (21:07)
[2023-01-29] MEDS: ACETAMINOPHEN 325 MG TABLET PO PRN (21:08)
[2023-01-30 05:54] LABS: CHOL/HDL RATIO 4.3 (<5.0); CHOLESTEROL 116 mg/dL; HDL CHOLESTEROL 27 mg/dL; LDL CHOLESTEROL,CALCULATED 64 mg/dL; LDL/HDL RATIO 2.4 (<3.6); TRIGLYCERIDES 126 mg/dL; VLDL CHOLESTEROL 25 mg/dL
[2023-01-30] MEDS: PANTOPRAZOLE 40 MG TABLET PO SCH (06:39)
[2023-01-30] MEDS: SIMETHICONE CHEW 80 MG TABLET PO PRN ×2 (08:10→21:52)
[2023-01-30] MEDS: SACCHAROMYCES BOULARDII 250 MG CAPSULE PO SCH ×2 (08:10→16:59)
[2023-01-30] MEDS: APIXABAN 5 MG TABLET PO SCH ×2 (08:10→20:36)
[2023-01-30] MEDS: MULTIVITAMIN W/MINERALS TABLET PO SCH (08:11)
[2023-01-30] MEDS: amLODIPine 5 MG TABLET PO SCH (08:11)
[2023-01-30] MEDS: VALSARTAN PO SCH (08:12)
[2023-01-30] MEDS: SACUBITRIL PO SCH (08:12)
[2023-01-30] MEDS: NYSTATIN POWDER 15 GM TOP SCH ×2 (08:12→20:36)
[2023-01-30] MEDS: VENETOCLAX 100 MG PO SCH (08:12)
[2023-01-30] MEDS: ZINC OXIDE 20% OINT 30 GM TUBE TOP SCH ×2 (08:13→20:36)
[2023-01-30] MEDS: ATORVASTATIN 40 MG TABLET PO SCH (20:36)
[2023-01-30] MEDS: ACETAMINOPHEN 325 MG TABLET PO PRN (21:52)
[2023-01-31] MEDS: ZINC OXIDE 20% OINT 30 GM TUBE TOP SCH ×2 (06:27→20:31)
[2023-01-31] MEDS: NYSTATIN POWDER 15 GM TOP SCH ×2 (06:27→20:31)
[2023-01-31] MEDS: PANTOPRAZOLE 40 MG TABLET PO SCH (06:38)
[2023-01-31] MEDS: amLODIPine 5 MG TABLET PO SCH (08:13)
[2023-01-31] MEDS: SACCHAROMYCES BOULARDII 250 MG CAPSULE PO SCH ×2 (08:13→17:07)
[2023-01-31] MEDS: APIXABAN 5 MG TABLET PO SCH ×2 (08:13→20:31)
[2023-01-31] MEDS: MULTIVITAMIN W/MINERALS TABLET PO SCH (08:14)
[2023-01-31] MEDS: VALSARTAN PO SCH (08:14)
[2023-01-31] MEDS: SACUBITRIL PO SCH (08:14)
[2023-01-31] MEDS: VENETOCLAX 100 MG PO SCH (08:14)
[2023-01-31] MEDS: ATORVASTATIN 40 MG TABLET PO SCH (20:29)
[2023-02-01] MEDS: SIMETHICONE CHEW 80 MG TABLET PO PRN ×2 (01:00→21:25)
[2023-02-01] MEDS: PANTOPRAZOLE 40 MG TABLET PO SCH (06:19)
[2023-02-01] MEDS: MULTIVITAMIN W/MINERALS TABLET PO SCH (09:30)
[2023-02-01] MEDS: VENETOCLAX 100 MG PO SCH (09:30)
[2023-02-01] MEDS: SACUBITRIL PO SCH (09:30)
[2023-02-01] MEDS: VALSARTAN PO SCH (09:30)
[2023-02-01] MEDS: APIXABAN 5 MG TABLET PO SCH ×2 (09:31→20:42)
[2023-02-01] MEDS: NYSTATIN POWDER 15 GM TOP SCH ×2 (09:31→20:42)
[2023-02-01] MEDS: ZINC OXIDE 20% OINT 30 GM TUBE TOP SCH ×2 (09:31→20:42)
[2023-02-01] MEDS: amLODIPine 5 MG TABLET PO SCH (09:31)
[2023-02-01] MEDS: SACCHAROMYCES BOULARDII 250 MG CAPSULE PO SCH ×2 (09:31→17:10)
[2023-02-01] MEDS: ATORVASTATIN 40 MG TABLET PO SCH (20:42)
[2023-02-02] MEDS: PANTOPRAZOLE 40 MG TABLET PO SCH (06:22)
[2023-02-02] MEDS: APIXABAN 5 MG TABLET PO SCH ×2 (08:23→21:20)
[2023-02-02] MEDS: amLODIPine 5 MG TABLET PO SCH (08:23)
[2023-02-02] MEDS: SACCHAROMYCES BOULARDII 250 MG CAPSULE PO SCH ×2 (08:23→17:10)
[2023-02-02] MEDS: MULTIVITAMIN W/MINERALS TABLET PO SCH (08:23)
[2023-02-02] MEDS: VALSARTAN PO SCH (08:24)
[2023-02-02] MEDS: ZINC OXIDE 20% OINT 30 GM TUBE TOP SCH ×2 (08:24→21:21)
[2023-02-02] MEDS: NYSTATIN POWDER 15 GM TOP SCH ×2 (08:24→21:20)
[2023-02-02] MEDS: VENETOCLAX 100 MG PO SCH (08:24)
[2023-02-02] MEDS: SACUBITRIL PO SCH (08:24)
[2023-02-02] MEDS: ATORVASTATIN 40 MG TABLET PO SCH (21:20)
[2023-02-02] MEDS: SIMETHICONE CHEW 80 MG TABLET PO PRN (21:23)
[2023-02-03] MEDS: PANTOPRAZOLE 40 MG TABLET PO SCH (06:20)
[2023-02-03] MEDS: SACCHAROMYCES BOULARDII 250 MG CAPSULE PO SCH ×2 (08:42→16:44)
[2023-02-03] MEDS: MULTIVITAMIN W/MINERALS TABLET PO SCH (08:42)
[2023-02-03] MEDS: ZINC OXIDE 20% OINT 30 GM TUBE TOP SCH ×2 (08:43→21:06)
[2023-02-03] MEDS: amLODIPine 5 MG TABLET PO SCH (08:43)
[2023-02-03] MEDS: VALSARTAN PO SCH (08:43)
[2023-02-03] MEDS: VENETOCLAX 100 MG PO SCH (08:43)
[2023-02-03] MEDS: APIXABAN 5 MG TABLET PO SCH ×2 (08:43→21:06)
[2023-02-03] MEDS: SACUBITRIL PO SCH (08:43)
[2023-02-03] MEDS: NYSTATIN POWDER 15 GM TOP SCH ×2 (08:51→21:07)
[2023-02-03] MEDS: ATORVASTATIN 40 MG TABLET PO SCH (21:06)
[2023-02-03] MEDS: SIMETHICONE CHEW 80 MG TABLET PO PRN (21:10)
[2023-02-04] MEDS: PANTOPRAZOLE 40 MG TABLET PO SCH (06:39)
[2023-02-04] MEDS: APIXABAN 5 MG TABLET PO SCH ×2 (08:06→20:17)
[2023-02-04] MEDS: SACCHAROMYCES BOULARDII 250 MG CAPSULE PO SCH ×2 (08:06→16:33)
[2023-02-04] MEDS: amLODIPine 5 MG TABLET PO SCH (08:06)
[2023-02-04] MEDS: MULTIVITAMIN W/MINERALS TABLET PO SCH (08:06)
[2023-02-04] MEDS: VENETOCLAX 100 MG PO SCH (08:08)
[2023-02-04] MEDS: VALSARTAN PO SCH (08:09)
[2023-02-04] MEDS: ZINC OXIDE 20% OINT 30 GM TUBE TOP SCH ×2 (08:09→20:17)
[2023-02-04] MEDS: NYSTATIN POWDER 15 GM TOP SCH ×2 (08:09→20:19)
[2023-02-04] MEDS: SACUBITRIL PO SCH (08:09)
[2023-02-04] MEDS: ATORVASTATIN 40 MG TABLET PO SCH (20:17)
[2023-02-05] MEDS: PANTOPRAZOLE 40 MG TABLET PO SCH (06:21)
[2023-02-05] MEDS: APIXABAN 5 MG TABLET PO SCH ×2 (08:17→20:29)
[2023-02-05] MEDS: MULTIVITAMIN W/MINERALS TABLET PO SCH (08:17)
[2023-02-05] MEDS: SACUBITRIL PO SCH (08:17)
[2023-02-05] MEDS: VALSARTAN PO SCH (08:17)
[2023-02-05] MEDS: NYSTATIN POWDER 15 GM TOP SCH ×2 (08:17→20:29)
[2023-02-05] MEDS: VENETOCLAX 100 MG PO SCH (08:17)
[2023-02-05] MEDS: amLODIPine 5 MG TABLET PO SCH (08:17)
[2023-02-05] MEDS: ZINC OXIDE 20% OINT 30 GM TUBE TOP SCH ×2 (08:17→20:29)
[2023-02-05] MEDS: SACCHAROMYCES BOULARDII 250 MG CAPSULE PO SCH ×2 (08:17→16:35)
--- NOTE | 2023-02-05 12:38 | PROVIDER PROGRESS NOTE ---
Assessment/Plan - Problem List (1) Ataxia Assessment/Plan: The patient is progressing daily by working with PT and OT daily or twice a day. He is now independent walking the hallways using a front-wheeled walker. He needs to accomplish walking 3 steps in a staircase that has no handrails, this is what he has to maneuver to enter his home. He is being given a single- point cane, not a quad cane, to maneuver stairs when working with PT and OT here. Plan: PT and OT predict that he may be ready for discharge tomorrow (2) Dizziness Assessment/Plan: Today he complains of dizziness, that is why I met with him. He does not have double vision or tunnel vision. He is not sure why he is dizzy. PT and OT separately reported to me about him: He was not able to walk as far using his front-wheeled walker because of that complaint of dizziness. Blood pressure was measured and it was high at 150 systolic. PT then commented that whenever his blood pressure is high he is "dizzy" with this exact complaint. They then tried to find out from him why he would be so hypertensive today and he admitted that he "overdid it yesterday". He walked 11 rounds in the hallway on his own. About an hour after I met with him he was nauseated and had a large emesis. RN administered IV Zofran Plan: I will de-escalate his diet from a regular diet down to clear liquids, then advance as tolerated PT and OT and I have advised him not to overdo it w/ activity. He is to slowly increases his activity to walking 1 mi/day, which he did before hospitalization. We will give additional BP meds if necessary (3) Hypertension Impression: His BP is mostly controlled, averaging 130's/80's Plan: Amlodipine dose is 5 mg daily Qualifiers: Hypertension type: primary hypertension Qualified Code(s): I10 - Essential (primary) hypertension (4) Lymphoma Impression: His is to stay on patient's own med: Venclexta. Qualifiers: Lymphoma type: unspecified type (5) Atrial fibrillation Impression: Rate has been consistently stable. Lowest is in the 60s, highest is 92. Still on anticoagulation without any change. Qualifiers: Atrial fibrillation type: permanent Qualified Code(s): I48.21 - Permanent atrial fibrillation - Current Meds Current Meds: Current Medications Generic Name Dose Route Start Last Admin Trade Name Freq PRN Reason Stop Dose Admin Acetaminophen 650 mg 01/26/23 16:25 01/30/23 21:52 Acetaminophen 325 Mg Tablet PO 650 mg Q4HR PRN Administration Pain 1 to 4, or Fever Amlodipine Besylate 5 mg 01/30/23 09:00 02/05/23 08:17 Amlodipine 5 Mg Tablet PO 5 mg DAILY INNA Administration Apixaban 5 mg 01/26/23 21:00 02/05/23 08:17 Apixaban 5 Mg Tablet PO 5 mg BID INNA Administration Atorvastatin Calcium 20 mg 01/26/23 21:00 02/04/23 20:17 Atorvastatin 40 Mg Tablet PO 20 mg QPM INNA Administration Multi-Ingredient Ointment 1 applic 01/26/23 21:00 02/05/23 08:17 Zinc Oxide 20% Oint 30 Gm Tube TOP 1 applic BID INNA Administration Multivitamins/Minerals 1 tab 01/27/23 08:00 02/05/23 08:17 Multivitamin W/Minerals Tablet PO 1 tab DAILYWM INNA Administration Nystatin 1 applic 01/26/23 21:00 02/05/23 08:17 Nystatin Powder 15 Gm TOP 1 applic BID INNA Administration Pantoprazole Sodium 40 mg 01/27/23 07:00 02/05/23 06:21 Pantoprazole 40 Mg Tablet PO 40 mg QDAC INNA Administration Venetoclax [ 4 each 01/27/23 08:00 02/05/23 08:17 Venclexta] 100 Mg PO 4 each Tablet DAILYWM INNA Administration Sacubiril/ 1 each 01/27/23 09:00 02/05/23 08:17 Valsartan [Entresto PO 1 each 24mg-26mg Tab] DAILY INNA Administration Saccharomyces Boulardii 250 mg 01/27/23 08:00 02/05/23 08:17 Saccharomyces Boulardii 250 Mg Capsule PO 250 mg BIDWM INNA Administration Simethicone 80 mg 01/26/23 16:27 02/03/23 21:10 Simethicone Chew 80 Mg Tablet PO 80 mg 0900,1300,1800,2100 PRN Administration NEEDED PER PROVIDER ORDERS Subjective - Subjective Patient Reports: Dizzines Nursing Reports: Other (He vomited in the afternoon, then felt better) Objective Vital Signs: Vital Signs - 24 hr 02/04/23 02/05/23 16:00 07:56 Temperature 36.2 C L 36.4 C L Heart Rate [ 70 77 Brachial] Respiratory 18 18 Rate Blood Pressure 123/70 136/90 H [Right Brachial artery] O2 Saturation 97 97 Oxygen O2 Source Room air I&O (Last 24 Hrs): Intake and Output Totals x24h 02/03/23 02/04/23 02/05/23 23:59 23:59 23:59 Intake Total 2390 730 360 Output Total 1350 450 900 Balance 1040 280 -540 General: Alert, Oriented x3 HEENT: Mucous membr. moist/pink, Other (poor dentition) Neck: Supple, No JVD Neuro: Alert, Non Focal Cardiovascular: Regular rate Respiratory: No respiratory distress Abdomen: Normal bowel sounds, Soft, No tenderness Extremities: No clubbing, No edema - Results Results: Laboratory Results Triglycerides 126 mg/dL (-149) 01/30/23 05:26 Cholesterol 116 mg/dL (-199) 01/30/23 05:26 LDL Cholesterol, Calc 64 mg/dL (-129) 01/30/23 05:26 VLDL Cholesterol 25 mg/dL 01/30/23 05:26 HDL Cholesterol 27 mg/dL (60-) L 01/30/23 05:26 LDL/HDL Ratio 2.4 (<3.6) 01/30/23 05:26 Cholesterol/HDL Ratio 4.3 (<5.0) 01/30/23 05:26
[2023-02-05] MEDS: ATORVASTATIN 40 MG TABLET PO SCH (20:29)
[2023-02-06] MEDS: PANTOPRAZOLE 40 MG TABLET PO SCH (06:32)
[2023-02-06] MEDS: MULTIVITAMIN W/MINERALS TABLET PO SCH (08:07)
[2023-02-06] MEDS: amLODIPine 5 MG TABLET PO SCH (08:07)
[2023-02-06] MEDS: SACCHAROMYCES BOULARDII 250 MG CAPSULE PO SCH (08:07)
[2023-02-06] MEDS: ZINC OXIDE 20% OINT 30 GM TUBE TOP SCH (08:07)
[2023-02-06] MEDS: APIXABAN 5 MG TABLET PO SCH (08:07)
[2023-02-06] MEDS: NYSTATIN POWDER 15 GM TOP SCH (08:07)
[2023-02-06] MEDS: SACUBITRIL PO SCH (08:08)
[2023-02-06] MEDS: VALSARTAN PO SCH (08:08)
[2023-02-06] MEDS: VENETOCLAX 100 MG PO SCH (08:08)
[2023-02-06 08:12] VITALS: BP 137/76
--- NOTE | 2023-02-06 11:41 | Discharge Plan ---
Discharge Plan Problem Reviewed?: Yes Disposition: 02 Transfer Acute Care Hosp Condition: Poor Health Concerns: Patient being discharged from Swing Bed status today. He will be admitted/placed in Observation. No Smoking: If you smoke, Please STOP! Call for help.
--- NOTE | 2023-02-06 11:41 | DISCHARGE SUMMARY ---
Discharge Summary Admit Date: 01/27/23 Discharge Date: 02/06/23 Discharging Provider: Dr Inez Tidwell Primary Care Provider: [facility] Code Status: Attempt Resuscitation Condition at Discharge: Poor Discharge Disposition: 02 Transfer Acute Care Hosp - [facility] History of Present Illness: This gentleman was admitted to our hospital as an Inpt on January 17 for symptoms of a stroke. He presented with speech difficulty and gait instability that were sudden in onset. MRI with angiogram had no acute abnormalities. He was found to have an abnormal urinalysis and he was found to have a UTI and we postulate that he may have had the symptoms because of the UTI but we are not sure why he continued to have ataxia and gait instability. He improved with IV fluids and antibiotics and began working with PT and OT. He was felt to need continued therapy and was to be transition to a correction facility. However the patient takes Venclexta. It is prohibitively expensive and every facility our social work is contacted stated they could not take the patient on the basis of the cost of the drug. As such the patient was transition to swing bed status in our hospital on January 26. With his January 23 physical therapy evaluation and treatment he was ambulating 200 feet, able to march, do heel toe raises, and had good endurance. He was inconsistent with transfers and needed to verbal cues for hand placement for pushoff in order to stand safely. He was also having problems with balance and that he would have increased swaying when his feet were brought together. They recommended a front wheel walker. He lives alone. And they continue to recommend either correction facility discharge or swing bed discharge. - HOSPITAL COURSE Hospital Course: (1) Ataxia The patient worked with PT and OT daily or twice a day, and achieved walking independently, using a front-wheeled walker. He needed to accomplish walking 3 steps up a staircase that has no handrails, which is what he has to maneuver to enter his home. He was given a single-point cane, not a quad cane, to maneuver stairs here. He made only limited gains in safely climbing [address], because this is when his dizziness set in (see #2 closed (2) Dizziness On 02/05 he complained of dizziness, denied double vision or tunnel vision. He was not orthostatic. PT and OT separately reported to me that whenever his blood pressure was above 140 systolic, he described being "dizzy", and BP was 15 that day. He admitted that he "overdid it" the previous day, because he had walked 11 laps in the hallway on his own. About an hour after I met with him, he was nauseated and had a large emesis. He got IV Zofran. His abdominal exam was benign and he felt better. I de-escalate his diet from a regular diet down to clear liquids. The following day 02/06, there was no more nausea but he still felt "dizzy" and described this as "overall fatigue". A set of orthostatic vital signs were done and he was orthostatic. He could not maneuver the stairs on 02/06, and I witnessed him to stumble while doing the stairs and even needed cuing as to which foot to use. He was discharged from SNF (Swing Bed status), and admitted to Observation/Inpatient status here at the hospital, for further evaluation and management. (3) Hypertension His BP was mostly controlled, averaging 130's/80's in new Amlodipine 5 mg daily (4) Lymphoma His is supposed to stay on patient's own med: Venclexta. (5) Atrial fibrillation Rate has been consistently stable, between 60- 92. He remained on his anticoagulant without any change. - ALLERGIES Allergies/Adverse Reactions: Allergies Allergy/AdvReac Type Severity Reaction Status Date / Time corn Allergy Respiratory Verified 01/17/23 14:16 peanut Allergy Respiratory Verified 01/17/23 14:16 - MEDICATIONS Home Medications: Ambulatory Orders Medication Instructions Recorded Confirmed Albuterol Sulf [Ventolin Hfa 1 - 2 puffs INH Q4HR PRN #1 each 01/16/23 01/27/23 Inhaler] Apixaban [Eliquis] 5 mg PO BID 01/17/23 01/27/23 Omeprazole Magnesium 20 mg PO QDAC 01/19/23 01/27/23 Venetoclax [Venclexta] 400 mg PO DAILYWM 01/19/23 01/27/23 Amlodipine Besylate [Norvasc] 2.5 mg PO DAILY #30 tablet 01/22/23 01/27/23 Loperamide [Imodium] 2 mg PO QID PRN #10 cap 01/22/23 01/27/23 Saccharomyces Boulardii [Florastor] 250 mg PO BIDWM #6 cap 01/22/23 01/27/23 Simethicone [Mylicon] 80 mg PO 0900,1300,1800,2100 PRN 01/22/23 01/27/23 #10 tab Sacubitril/Valsartan [Entresto 24 1 tab PO BID 01/27/23 01/27/23 mg-26 mg Tablet] - PHYSICAL EXAM AT DISCHARGE General Appearance: positive: No acute distress, Alert, Other (Disheveled) Eyes Bilateral: positive: Normal inspection, EOMI ENT: positive: No signs of dehydration, Other (poor dentition, many missing teeth) Neck: positive: Nml inspection, No JVD Respiratory: positive: No respiratory distress Cardiovascular: positive: Regular rate & rhythm, No murmur Abdomen: positive: Nml bowel sounds, No distention Skin: positive: Warm, Dry Extremities: positive: Non-tender, No pedal edema Neurologic/Psychiatric: positive: Oriented x3, Other (Poor balance, has intermittently slurred speech. Non-focal motor exam.) - FOLLOW UP Follow Up: The patient is being discharged from Swing bed (SNF) status, and is to be placed in Observation (or may need Inpatient status) here at [facility]. - TIME SPENT Time Spent in Discharge (Minutes): 30
[2023-02-06] MEDS ORDERED: SODIUM CHLORIDE 0.9% 1,000 ML IV ONE (13:58)
== END 2023-02-06 12:07 | disposition short-term general hospital (02) | DRG 92 ==
LOC: MS2 16:25
PROVIDERS: ADMIT Specialist; ATTEND Internal Medicine
DX: R26.89 Other abnormalities of gait and mobility (principal); C85.90 Non-Hodgkin lymphoma, unspecified, unspecified site; I48.21 Permanent atrial fibrillation; I95.1 Orthostatic hypotension; I10 Essential (primary) hypertension; Z79.01 Long term (current) use of anticoagulants; I25.10 Atherosclerotic heart disease of native coronary artery without angina pectoris; Z95.5 Presence of coronary angioplasty implant and graft; R47.1 Dysarthria and anarthria; Z91.81 History of falling; R11.2 Nausea with vomiting, unspecified
CPT/HCPCS: 36415; 80061; 83721

== ENCOUNTER 2023-02-06 12:56 | Observation (INO) | payer OTHER ==
[2023-02-06] MEDS ORDERED: ACETAMINOPHEN 325 MG TABLET PO PRN (13:37)
[2023-02-06] MEDS ORDERED: ONDANSETRON 4 MG/2 ML VIAL IVP PRN (13:37)
[2023-02-06] MEDS ORDERED: SODIUM CHLORIDE FLUSH 0.9% 10 ML SYRINGE IVP PRN (13:37)
[2023-02-06] MEDS ORDERED: PROCHLORPERAZINE 10 MG/2 ML VIAL IVP PRN (13:37)
[2023-02-06] MEDS ORDERED: LOPERAMIDE 2 MG CAPSULE PO PRN (13:40)
[2023-02-06] MEDS ORDERED: SIMETHICONE CHEW 80 MG TABLET PO PRN (13:40)
--- NOTE | 2023-02-06 13:49 | HISTORY & PHYSICAL EXAMINATION ---
Chief Complaint - Chief Complaint Chief Complaint: Dizzy x2 days History of Present Illness - Admitted From Admitted From:: Swing Bed (SNF) here - History Obtained From History obtained from: Patient was under my care in Swing Bed, I know his Hx - History of Present Illness HPI Comment/Other: This is a 72-year-old WM with a history of HTN and lymphoma on Venclexta daily who presented here over a month ago with complaints of poor balance and abnormal speech. He underwent work-up for stroke which was negative. We never found a explanation for his ataxia and garbled speech. The speech improved but not entirely. He started to work with PT and OT and had very slow improvement it was advised that he have further PT and OT rehab at a SNF. He was discharged and admitted to our Swing bed status (SNF at [facility]). He has been doing daily or twice daily PT and OT rehab. He is improved to the point of being independent and walking laps in the hallway using a front wheel walker. His final goal in Swing Bed status, opposed to be able to ambulate up 3 steps that had no handrail. He has tried to do this with a single-point cane and has had difficulty, feels unsteady. Yesterday he had the added complaint of being dizzy. He has had mild dizziness whenever his blood pressure is in the 150 systolic range which was that high yesterday. He also admitted he had overdone it the day before by walking 11 laps in the hospital alone. However, yesterday he had a large projectile emesis and then his dizziness resolved. Today he again tried to do the stairs and was very unstable, even stumbled, and needed to be directed on which foot to use for stair climbing. He is still complaining of dizziness and fatigue, but is not nauseated today. Orthostatic vital signs were checked and were abnormal today. The patient was discharged from Swing bed status today and he is being placed in Observation status in the hospital to evaluate and treat his 2 days of dizziness and his orthostasis. His CODE STATUS is full code. History - Past Medical History Cardiovascular: reports: Coronary artery disease, Atrial fibrillation Respiratory: reports: None Neuro: reports: None Endocrine/Autoimmune: reports: None GI: reports: None : reports: Other HEENT: reports: None Psych: reports: None Musculoskeletal: reports: None Derm: reports: None - Past Surgical History Cardiovascular: reports: Coronary stent - Family & Social History Living arrangement: At home Living Situation: Alone Social History Notes: No smoking. No alcohol abuse history - Substance History Use: Uses substance without health or social issues: NONE - POLST Patient has POLST: No Meds/Allgy - Home Medications Home Medications: Ambulatory Orders Medication Instructions Recorded Confirmed Albuterol Sulf [Ventolin Hfa 1 - 2 puffs INH Q4HR PRN #1 each 01/16/23 02/06/23 Inhaler] Apixaban [Eliquis] 5 mg PO BID 01/17/23 02/06/23 Omeprazole Magnesium 20 mg PO QDAC 01/19/23 02/06/23 Venetoclax [Venclexta] 400 mg PO DAILYWM 01/19/23 02/06/23 Amlodipine Besylate [Norvasc] 2.5 mg PO DAILY #30 tablet 01/22/23 02/06/23 Loperamide [Imodium] 2 mg PO QID PRN #10 cap 01/22/23 02/06/23 Saccharomyces Boulardii [Florastor] 250 mg PO BIDWM #6 cap 01/22/23 02/06/23 Simethicone [Mylicon] 80 mg PO 0900,1300,1800,2100 PRN 01/22/23 02/06/23 #10 tab Sacubitril/Valsartan [Entresto 24 1 tab PO BID 01/27/23 02/06/23 mg-26 mg Tablet] - Allergies Allergies/Adverse Reactions: Allergies Allergy/AdvReac Type Severity Reaction Status Date / Time corn Allergy Respiratory Verified 01/17/23 14:16 peanut Allergy Respiratory Verified 01/17/23 14:16 Review of Systems - Constitutional Constitutional: reports: Fatigue - Musculoskeletal Musculoskeletal: reports: Muscle weakness - Neurological Neurological: reports: Dizziness, Abnormal gait, Slurred speech - All Other Systems All Other Systems: reports: Reviewed and negative Exam - Vital Signs Reviewed Vital Signs: Yes - Physical Exam General Appearance: positive: No acute distress, Alert Eyes Bilateral: positive: Normal inspection, EOMI, Other (Bilateral ptosis) ENT: positive: ENT inspection nml, No signs of dehydration Neck: positive: Nml inspection, No JVD Respiratory: positive: No respiratory distress Cardiovascular: positive: No murmur, Irregularly irregular Abdomen: positive: Non-tender, Nml bowel sounds, No distention Skin: positive: Warm, Dry Extremities: positive: Non-tender, Other (Trace pretibial edema) Neurologic/Psychiatric: positive: Oriented x3, Motor nml, Sensation nml, Slurred/abnml speech Conclusion/Plan - Problem List (1) Orthostatic hypotension Conclusion/Plan: A set of orthostatic vital signs was done today: Supine BP 106/69 with heart rate 61 with standing the heart rate mila to 108 and patient was lightheaded. With admission now to Observation, a BMP was done, and that shows prerenal azotemia (all lbs were reviewed) Possibly his orthostasis is from fluid losses that he had with vomiting yesterday, however his complaint of dizziness preceded the nausea and vomiting yesterday Plan: We will start iv NS and give [address] on telemetry and monitor for change in rhythm Follow orthostatic vital signs q shift Follow BMP daily (2) Dizziness On 02/05, while in Swing Bed status, he had dizziness, denied double vision or tunnel vision. He was not orthostatic initially. PT and OT separately reported to me that whenever his blood pressure was above 140 systolic, he described being "dizzy", and BP was 15 that day. He admitted that he "overdid it" the previous day, because he had walked 11 laps in the hallway on his own. About an hour after I saw him on 02/05, he was nauseated and had a large emesis. He got IV Zofran. His abdominal exam was benign and he felt better. I de-escalate his diet from a regular diet down to clear liquids. Then today 02/06, still in Swing Bed status, there was no more nausea but he still felt "dizzy" and described this as "overall fatigue". A set of orthostatic vital signs were done and he was orthostatic. He could not maneuver the stairs on 02/06, and I witnessed him to stumble while taking the stairs and even needed cuing as to which foot to use. Plan: He was discharged from SNF (Swing Bed status), and is now placed in Observation status here at the hospital, for further evaluation and management. He is volume depleted by virtue of having abnormal orthostatic vital signs and prerenal azotemia. We will continue to monitor orthostatic vital signs every shift and give iv fluids Remain on telemetry to evaluate for new arrhythmias (3) Ataxia While he was in Swing bed status, the patient worked with PT and OT and achieved walking independently, using a front-wheeled walker. He needed to accomplish walking 3 steps up a staircase that has no handrails, which is what he has to maneuver to enter his home. He was given a single-point cane, not a quad cane, to maneuver stairs here. He made only limited gains in safely climbing [address] Plan: We will continue with PT and OT (4) Garbled speech This has never really improved. Plan: We will request official Speech Therapy to evaluate. I spoke to the rehab department about this. I was told that he had an official linguistic eval done by Speech Therapy on January 20,when he was an inpatient this last time before going to Swing Bed status, and the recommendation from ST was to undergo linguistic th erapy which we do not have here. Therefore I will promote that he either get home health PT OT and ST or go to a SNF for PT OT and ST (5)Hypertension His BP was mostly controlled, averaging 130's/80's. He had been previously been on Amlodipine and Entresto at home before that last inpatient stay. The Entresto was stopped. The Amlodipine was increased from 2.5 to 5 mg daily Our pharmacist Radha just informed me today, that the patient's Entresto was never stopped, it was ordered to be given as patient's own med and he was getting it BID, according to the MAR Plan: I will decrease the Amlodipine from 5 mg daily to 2.5 mg daily and put holding orders The patient has no indication to be on Entresto which is a second line of therapy for patients with systolic heart failure. This patient has normal LVEF and no history of systolic heart failure, and he is not on Coreg or Spironolactone. I have asked our pharmacist to look into which outpt provider ordered this Entresto in order to see if there is part of his history that we are not aware of. (6) Lymphoma His is supposed to stay on patient's own med: Venclexta. (7) Atrial fibrillation Rate in Swing Bed was stable between 60- 92. Plan: Will keep him on his anticoagulant without any changes. - Lab Results Fish Bones: 06/02/23 13:52 02/06/23 13:52
[2023-02-06 13:58] LABS: BASOPHILS % (AUTO) 0.4 %; EOSINOPHILS # (AUTO) 0.1 10^3/uL (0.0-0.7); EOSINOPHILS % (AUTO) 1.3 %; HCT - HEMATOCRIT 45.6 % (42.0-52.0); LYMPHOCYTES # (AUTO) 1.1 10^3/uL (1.5-3.5); LYMPHOCYTES % (AUTO) 11.8 %; MEAN CORPUSCULAR HEMOGLOBIN 31.1 pg (27.0-31.0); MEAN CORPUSCULAR HGB CONC 32.9 g/dL (32.0-36.0); MEAN CORPUSCULAR VOLUME 94.4 fL (80.0-94.0); MONOCYTES # (AUTO) 1.2 10^3/uL (0.0-1.0); MONOCYTES % (AUTO) 12.7 %; NEUTROPHILS # (AUTO) 6.8 10^3/uL (1.5-6.6); NEUTROPHILS % (AUTO) 73.6 %; PLT - PLATELET COUNT 150 10^3/uL (130-450); RED BLOOD COUNT 4.83 10^6/uL (4.70-6.10); WHITE BLOOD COUNT 9.3 x10^3/uL (4.8-10.8)
[2023-02-06 14:11] LABS: ALBUMIN 4.2 g/dL (3.2-5.5); ALBUMIN/GLOBULIN RATIO 1.6 (1.0-2.2); BILIRUBIN,TOTAL 1.8 mg/dL (0.2-1.0); CALCIUM 9.1 mg/dL (8.5-10.3); CREATININE 1.2 mg/dL (0.6-1.2); POTASSIUM 3.7 mmol/L (3.5-5.0); TOTAL PROTEIN 6.8 g/dL (6.7-8.2)
[2023-02-06] MEDS ORDERED: ALBUTEROL NEB 2.5 MG/3 ML INH PRN (14:13)
[2023-02-06] MEDS ORDERED: ZINC OXIDE 20% OINT 30 GM TUBE TOP PRN (14:34)
[2023-02-06] MEDS: SODIUM CHLORIDE 0.9% 1,000 ML IV SCH ×2 (14:37→23:40)
--- NOTE | 2023-02-06 14:57 | PHARMACY PROGRESS NOTE ---
- Best Possible Medication History Admit Date and Time: 02/06/23 6628 Processed by: Pharmacy Medication History completed: Yes Patient Interview: Completed Secondary Source(s): Previous admit records (PT CHANGED FROM SWING TO OBS.) As the person ultimately responsible for medication therapy, providers are able to order a medication from an existing home medication list in [facility] via the "Reconcile Routine" prior to Confirmation of that medication by client support representative. Such practice is discouraged except when the physician, in their clinical judgment, deems that a medical need exists for a medication without regard to previous use.
[2023-02-06 15:38] LABS: BILIRUBIN,URINE NEGATIVE (NEGATIVE); GLUCOSE, URINE (UA) NEGATIVE (NEGATIVE); KETONES,URINE (UA) NEGATIVE (NEGATIVE); LEUKOCYTE ESTERASE, URINE NEGATIVE (NEGATIVE); NITRITE,URINE NEGATIVE (NEGATIVE); OCCULT BLOOD,URINE NEGATIVE (NEGATIVE); PH,URINE 5.5 PH (5.0-7.5); PROTEIN,URINE NEGATIVE (NEGATIVE); UROBILINOGEN,URINE 0.2 (NORMAL) E.U./dL (NORMAL)
[2023-02-06 15:39] LABS: CLARITY,URINE CLEAR (CLEAR)
[2023-02-06 15:53] LABS: BACTERIA,URINE None Seen /HPF (None Seen); RBC,URINE None Seen /HPF (0-5); SQUAMOUS EPITHELIAL CELL,UR NONE SEEN (<= Few); WBC,URINE 0-3 /HPF (0-3)
[2023-02-06] MEDS: SODIUM CHLORIDE FLUSH 0.9% 10 ML SYRINGE IVP SCH (16:03)
[2023-02-06] MEDS: NYSTATIN POWDER 15 GM TOP SCH (20:56)
[2023-02-06] MEDS: APIXABAN 5 MG TABLET PO SCH (20:56)
[2023-02-07] MEDS: SODIUM CHLORIDE FLUSH 0.9% 10 ML SYRINGE IVP SCH ×3 (01:45→18:09)
[2023-02-07] MEDS: PANTOPRAZOLE 40 MG TABLET PO SCH (06:10)
[2023-02-07 08:24] LABS: CALCIUM 8.8 mg/dL (8.5-10.3); CREATININE 0.9 mg/dL (0.6-1.2); POTASSIUM 3.4 mmol/L (3.5-5.0)
[2023-02-07] MEDS ORDERED: amLODIPine 5 MG TABLET PO SCH (09:00)
[2023-02-07] MEDS ORDERED: AMLODIPINE BESYLATE 2.5 MG PO SCH (09:00)
[2023-02-07] MEDS: APIXABAN 5 MG TABLET PO SCH ×2 (09:30→20:13)
[2023-02-07] MEDS: VENETOCLAX 100 MG PO SCH (09:32)
[2023-02-07] MEDS: NYSTATIN POWDER 15 GM TOP SCH ×2 (09:32→20:14)
--- NOTE | 2023-02-07 13:05 | PROVIDER PROGRESS NOTE ---
Assessment/Plan - Problem List (1) Orthostatic hypotension Assessment/Plan: Yesterday 02/06 he was lightheaded and orthostatic. He was discharged therefore from Swing bed and placed in the hospital in Observation status and a BMP showed prerenal azotemia. Possibly his orthostasis is from fluid losses that he had with vomiting 2 days ago, however his complaint of dizziness preceded the nausea and vomiting y esterday. Also this patient was still getting Entresto (ordered as patient's own med by a different provider, after I had stopped it). He has received iv NS 2 L. Today's orthostatic vital signs are WNL Plan: Remain on telemetry to monitor for change in rhythm Follow BMP daily Anticipate he will be ready for discharge to home tomorrow (2) Dizziness On 02/05, while in Swing Bed status, he had dizziness, denied double vision or tunnel vision. He was not orthostatic initially. PT and OT separately reported to me that whenever his blood pressure was above 140 systolic, he described being "dizzy", and BP was 15 that day. He admitted that he "overdid it" the previous day, because he had walked 11 laps in the hallway on his own. About an hour after I saw him on 02/05, he was nauseated and had a large emesis. He got IV Zofran. His abdominal exam was benign and he felt better. I de-escalate his diet from a regular diet down to clear liquids. Then today 02/06, still in Swing Bed status, there was no more nausea but he still felt "dizzy" and described this as "overall fatigue". A set of orthostatic vital signs were done and he was orthostatic. He could not maneuver the stairs on 02/06, and I witnessed him to stumble while taking the stairs and even needed cuing as to which foot to use. He was discharged from SNF (Swing Bed status), and placed in Observation status at the hospital yesterday 02/06, for further evaluation and management. He has received iv NS 2 L. Today's orthostatic vital signs are WNL Plan: Remain on telemetry until [place] (3) Ataxia While he was in Swing bed status, the patient worked with PT and OT and achieved walking independently, using a front-wheeled walker. He needed to accomplish walking 3 steps up a staircase that has no handrails, which is what he has to maneuver to enter his home. He was given a single-point cane, not a quad cane, to maneuver stairs here. He made only limited gains in safely climbing [address] Plan: We will continue with PT and OT. I will recommend further PT and OT after discharge (4) Garbled speech This has never really improved, since his first presentation here a month ago. I wanted to get an official Speech Therapy evaluation yesterday, and I spoke to the rehab department about this. I was told that he has already had an official linguistic eval done by Speech Therapy on January 20, when he was an inpatient this last time before even going to Swing Bed status, and the recommendation from was to undergo linguistic therapy which we do not have here. Therefore I will recommend he gets outpatient Speech/linguistic therapy after Dch. (5)Hypertension His BP was mostly controlled, averaging 130's/80's. He had been previously been on Amlodipine and Entresto at home before that last inpatient stay. The Entresto was stopped. The Amlodipine was increased from 2.5 to 5 mg daily Our pharmacist Radha brought to my attention that the patient's Entresto was ordered to be given as patient's own med, even though I had DC'd it previously. Yestyerday, I decreased his Amlodipine from 5 mg daily to 2.5 mg daily and put holding orders Plan: Today his syst blood pressure is reaching 160. I will therefore resume Amlodi pine at 5 mg daily, starting tomorrow. Remain off Entresto The patient has no indication to be on Entresto which is a second line of therapy for patients with systolic heart failure. This patient has normal LVEF and no history of systolic heart failure, and he is not on Coreg or Spironolactone. I have asked our pharmacist to look into which outpt provider ordered this Entresto in order to see if there is part of his history that we are not aware of. Entresto was ordered by Jose Nayak at [facility] [phone]. I called that number yesterday Thu at 4:40 PM and there was no answer. (6) Lymphoma Will continue patient's own med Venclexta. (7) Atrial fibrillation Will keep him on his anticoagulant without any changes. - Current Meds Current Meds: Current Medications Generic Name Dose Route Start Last Admin Trade Name Freq PRN Reason Stop Dose Admin Amlodipine Besylate 2.5 mg 02/07/23 09:00 02/07/23 09:31 Amlodipine 5 Mg Tablet PO 2.5 mg DAILY INNA Administration Apixaban 5 mg 02/06/23 21:00 02/07/23 09:30 Apixaban 5 Mg Tablet PO 5 mg BID INNA Administration Nystatin 1 applic 02/06/23 21:00 02/07/23 09:32 Nystatin Powder 15 Gm TOP 1 applic BID INNA Administration Pantoprazole Sodium 40 mg 02/07/23 07:00 02/07/23 06:10 Pantoprazole 40 Mg Tablet PO 40 mg QDAC INNA Administration Venetoclax ( 4 each 02/07/23 09:00 02/07/23 09:32 Venclexta) 100mg PO 4 each Tablets DAILY INNA Administration Sodium Chloride 10 ml 02/06/23 13:37 02/06/23 14:37 Sodium Chloride Flush 0.9% 10 Ml Syringe IVP 10 ml PRN PRN Administration NEEDED PER PROVIDER ORDERS Sodium Chloride 10 ml 02/06/23 17:00 02/07/23 09:32 Sodium Chloride Flush 0.9% 10 Ml Syringe IVP 10 ml 0100,0900,1700 INNA Administration - Lab Result Fish Bone Diagrams: 02/06/23 13:52 02/07/23 08:06 - Additional Planning My Orders: My Active Orders 02/06/23 13:37 Telemetry (24 Hour) [RC] Q4HR Vital Signs [RC] Q4HR Acetaminophen [Tylenol] 650 mg PO Q4HR PRN Ondansetron Inj [Zofran Inj] 4 mg IVP Q6HR PRN Prochlorperazine Inj [Compazine Inj] 10 mg IVP Q6HR PRN Sodium Chloride Flush 0.9% [Normal Saline Flush 0.9%] 10 ml IVP PRN PRN 02/06/23 13:38 Activity Orders [RC] Q2HR IO [RC] IOSHIFT Incentive Spirometry - RT [RC] .tid Initiate Bowel Care Protocol [RC] .protocol Initiate Line Care Protocol [RC] QSHIFT Initiate Personal Care Protoco [RC] .protocol Oxygen Therapy [RC] .PRN Code Status [OTHERS] Routine Condition of Patient [OTHERS] Routine DVT Prophylaxis [OTHERS] Routine 02/06/23 13:39 Initiate Line Care Protocol [RC] QSHIFT Evaluate and Treat OT [OT] Routine Evaluate and Treat PT [PT] Routine 02/06/23 13:40 Loperamide [Imodium] 2 mg PO QID PRN Simethicone [Mylicon] 80 mg PO 0900,1300,1800,2100 PRN 02/06/23 14:13 Albuterol 2.5 mg INH RTQ4H PRN 02/06/23 14:34 Zinc Oxide 20% Oint [Zinc Oxide] 1 applic TOP PRN PRN 02/06/23 Dinner Regular Diet [DIET] 02/06/23 17:00 Sodium Chloride Flush 0.9% [Normal Saline Flush 0.9%] 10 ml IVP 0100,0900,1700 02/06/23 21:00 Apixaban [Eliquis] 5 mg PO BID Nystatin [Nystop] 1 applic TOP BID 02/07/23 07:00 Pantoprazole [Protonix] 40 mg PO QDAC 02/07/23 07:33 Orthostatic [Vital Signs - Orthostatic] [RC] QSHIFT 02/07/23 09:00 Patient Own Med [Patient Own Medication] 4 each PO DAILY amLODIPine [Norvasc] 2.5 mg PO DAILY Subjective - Subjective Patient Reports: Feeling Better (Not dizzy, not nauseated, had energy to do stairs and wherewithal to walk on them sideways since he is so tall with large feet) Objective Vital Signs: Vital Signs - 24 hr 02/06/23 02/06/23 02/06/23 16:00 19:52 23:43 Temperature 36.3 C L 36.6 C 36.3 C L Heart Rate [ 89 55 L 62 Brachial] Respiratory 16 18 16 Rate Blood Pressure [Activity] Blood Pressure 133/95 H [Left Brachial artery] Blood Pressure 121/70 131/78 H [Right Brachial artery] Blood Pressure [Sitting] O2 Saturation 96 95 96 02/07/23 02/07/23 02/07/23 04:21 08:40 10:55 Temperature 36.4 C L 36.8 C Heart Rate [ 71 79 Brachial] Respiratory 20 18 Rate Blood Pressure 141/103 H [Activity] Blood Pressure 131/72 H 173/84 H [Left Brachial artery] Blood Pressure [Right Brachial artery] Blood Pressure 161/93 H [Sitting] O2 Saturation 93 96 Oxygen O2 Source Room air I&O (Last 24 Hrs): Intake and Output Totals x24h 02/05/23 02/06/23 02/07/23 23:59 23:59 23:59 Intake Total 905.000 360 Output Total 450 1975 Balance 455.000 -1615 General: Alert, Oriented x3 HEENT: Mucous membr. moist/pink, Other (Bilateral ptosis) Neck: Supple, No JVD Neuro: Alert, Non Focal Cardiovascular: No murmurs Respiratory: No respiratory distress Abdomen: Soft, No tenderness Extremities: No clubbing, No edema, No tenderness/swelling - Results Results: Laboratory Results WBC 9.3 x10^3/uL (4.8-10.8) 02/06/23 13:52 RBC 4.83 10^6/uL (4.70-6.10) 02/06/23 13:52 Hgb 15.0 g/dL (14.0-18.0) 02/06/23 13:52 Hct 45.6 % (42.0-52.0) 02/06/23 13:52 MCV 94.4 fL (80.0-94.0) H 02/06/23 13:52 MCH 31.1 pg (27.0-31.0) H 02/06/23 13:52 MCHC 32.9 g/dL (32.0-36.0) 02/06/23 13:52 RDW 14.0 % (12.0-15.0) 02/06/23 13:52 Plt Count 150 10^3/uL (130-450) 02/06/23 13:52 MPV 11.0 fL (7.4-11.4) 02/06/23 13:52 Neut # (Auto) 6.8 10^3/uL (1.5-6.6) H 02/06/23 13:52 Lymph # (Auto) 1.1 10^3/uL (1.5-3.5) L 02/06/23 13:52 [place] # (Auto) 1.2 10^3/uL (0.0-1.0) H 02/06/23 13:52 Eos # (Auto) 0.1 10^3/uL (0.0-0.7) 02/06/23 13:52 Baso # (Auto) 0.0 10^3/uL (0.0-0.1) 02/06/23 13:52 Absolute Nucleated RBC 0.00 x10^3/uL 02/06/23 13:52 Nucleated RBC % 0.0 /100WBC 02/06/23 13:52 Sodium 141 mmol/L (135-145) 02/07/23 08:06 Potassium 3.4 mmol/L (3.5-5.0) L 02/07/23 08:06 Chloride 109 mmol/L (101-111) 02/07/23 08:06 Carbon Dioxide 28 mmol/L (21-32) 02/07/23 08:06 Anion Gap 4.0 (6-13) L 02/07/23 08:06 BUN 17 mg/dL (6-20) 02/07/23 08:06 Creatinine 0.9 mg/dL (0.6-1.2) 02/07/23 08:06 Estimated GFR (MDRD) 82 (>89) L 02/07/23 08:06 Glucose 108 mg/dL (70-100) H 02/07/23 08:06 Calcium 8.8 mg/dL (8.5-10.3) 02/07/23 08:06 Magnesium 2.0 mg/dL (1.7-2.8) 02/07/23 08:06 Total Bilirubin 1.8 mg/dL (0.2-1.0) H 02/06/23 13:52 AST 24 IU/L (10-42) 02/06/23 13:52 ALT 24 IU/L (10-60) 02/06/23 13:52 Alkaline Phosphatase 94 IU/L (42-121) 02/06/23 13:52 Total Protein 6.8 g/dL (6.7-8.2) 02/06/23 13:52 Albumin 4.2 g/dL (3.2-5.5) 02/06/23 13:52 Globulin 2.6 g/dL (2.1-4.2) 02/06/23 13:52 Albumin/Globulin Ratio 1.6 (1.0-2.2) 02/06/23 13:52 Urine Color YELLOW 02/06/23 15:30 Urine Clarity CLEAR (CLEAR) 02/06/23 15:30 Urine pH 5.5 PH (5.0-7.5) 02/06/23 15:30 Ur Specific [place] 1.010 (1.002-1.030) 02/06/23 15:30 Urine Protein NEGATIVE mg/dL (NEGATIVE) 02/06/23 15:30 Urine Glucose (UA) NEGATIVE mg/dL (NEGATIVE) 02/06/23 15:30 Urine Ketones NEGATIVE mg/dL (NEGATIVE) 02/06/23 15:30 Urine Occult Blood NEGATIVE (NEGATIVE) 02/06/23 15:30 Urine Nitrite NEGATIVE (NEGATIVE) 02/06/23 15:30 Urine Bilirubin NEGATIVE (NEGATIVE) 02/06/23 15:30 Urine Urobilinogen 0.2 (NORMAL) E.U./dL (NORMAL) 02/06/23 15:30 Ur Leukocyte Esterase NEGATIVE (NEGATIVE) 02/06/23 15:30 Urine RBC None Seen /HPF (0-5) 02/06/23 15:30 Urine WBC 0-3 /HPF (0-3) 02/06/23 15:30 Ur Squamous Epith Cells NONE SEEN (<= Few) 02/06/23 15:30 Urine Bacteria None Seen /HPF (None Seen) 02/06/23 15:30 Urine Culture Comments NOT INDICATED 02/06/23 15:30
[2023-02-08] MEDS: SODIUM CHLORIDE FLUSH 0.9% 10 ML SYRINGE IVP SCH ×2 (02:01→10:37)
[2023-02-08] MEDS: PANTOPRAZOLE 40 MG TABLET PO SCH (05:24)
[2023-02-08 05:32] LABS: CALCIUM 8.8 mg/dL (8.5-10.3); CREATININE 0.9 mg/dL (0.6-1.2); MAGNESIUM 1.9 mg/dL (1.7-2.8); POTASSIUM 3.2 mmol/L (3.5-5.0)
--- NOTE | 2023-02-08 07:33 | Discharge Plan ---
Discharge Plan Problem Reviewed?: Yes Disposition: Home, Self Care Condition: Fair Prescriptions: Amlodipine Besylate [Norvasc] 5 mg PO DAILY #60 tablet Diet: Low Sodium Activity Restrictions: Activity as Tolerated Assistance Devices: Walker, Cane Weight Bearing: Full Weight Health Concerns: You were hospitalized for quite a long time because of your abnormal gait, abnormal speech, and generalized weakness. You needed rehab with Physical Therapy and Occupational Therapy while you were here. You are being discharged home today. We recommended that you have in-Home help from a Home Health agency to give you a bath aide, and more in-home physical therapy and occupational therapy, but you declined that service. It is advised that you see your Primary Care Provider and have referral for more outpatient physical therapy, occupational therapy and speech therapy to improve your enunciation, since you still have garbled speech. While you were in the hospital, we adjusted some of your medicines. Please follow the current list of medicines to take. STOP TAKING ENTRESTO, it was adding to your dizziness. The dose of Amlodipine is now higher at 5 mg a day; you can take 2 pills of the 2.5 mg dose all at once in the morning, or take 2.5 mg, one tablet at breakfast and one with dinner. You should see your Primary Care Provider for a hospital follow-up visit in the next 1-3 weeks. Bring this updated list of medicines to all your doctor's appointments to show them. Plan of Treatment: As above. Care Goals: Improvement in symptoms and stabilization are the goals. Assessment: The patient understands and is agreeable with the plan. Additional Instructions or Follow Up instructions: You should install railings for your have steps to enter the house. You should purchase a Life Alert in order to call somebody for help, since you live alone. You should not go back to walking 1 mile a day immediately. Please build up to this distance very, very slowly. No Smoking: If you smoke, Please STOP! Call for help.
--- NOTE | 2023-02-08 07:48 | DISCHARGE SUMMARY ---
Discharge Summary Admit Date: 02/06/23 Discharge Date: 02/08/23 Discharging Provider: Dr Inez Tidwell Primary Care Provider: LUIS E Dillard Condition at Discharge: Fair Discharge Disposition: 01 Home, Self Care - HPI History of Present Illness: This is a 72-year-old WM with a history of HTN and lymphoma on Venclexta daily who presented here over a month ago with complaints of poor balance and abnormal speech. He underwent work-up for stroke which was negative. We never found a explanation for his ataxia and garbled speech. The speech improved but not entirely. He started to work with PT and OT and had very slow improvement and it was advised that he have further PT and OT rehab at a SNF. No SNF would except him so he was discharged from Inpatient status and admitted to our Swing bed status (SNF at [facility]). He had been doing daily or twice daily PT and OT rehab. He improved to the point of being independent, walking laps in the hallway using a front wheel walker. His final goal in Swing Bed status, was to be able to ambulate up 3 steps that have no handrail, at his home. He had tried to do that using a cane and had difficulty, felt unsteady, then had vertiginous dizziness. e also admitted he had overdone it the day before by walking 11 laps in the hospital alone. However, on the day of dizziness he had a large projectile emesis and then his dizziness resolved. Thge following day, he again tried to maneuver up and down the stairs with that cane (and using no handrail) and was very unstable, stumbled, and even needed to be directed as to which foot to use for stair climbing. He was still complaining of dizziness and fatigue, but wasnot nauseated. Orthostatic vital signs were checked and were abnormal. He was therefore discharged from SNF (Swing bed). He is being placed in Observation status back in the hospital, he will have IV fluids and have meds adjusted. His CODE STATUS is Full Code. - HOSPITAL COURSE Hospital Course: (1) Orthostatic hypotension On 02/06 he was lightheaded and orthostatic. So he was discharged from Swing bed status and placed in the hospital in Observation status and a BMP was done that showed prerenal azotemia. Possibly his orthostasis was from fluid losses that he had with vomiting 2 days previously, however his complaint of dizziness preceded the nausea and vomiting. The patient was still getting Entresto (ordered as patient's own med by a different provider, after I had stopped it), which I feel gave him orthostasis. He received a slow infusion of 2 L of iv saline over 1.5 days nand his orthostasis resolved. (2) Dizziness On 02/05, while still in Swing Bed status, he had dizziness, and admitted that he "overdid it" the previous day, because he had walked 11 laps in the hallway on his own. Later that he was nauseated and had a large emesis. He got IV Zofran. His abdominal exam was benign and he felt better. Then on 02/06, still in Swing Bed status, there was no more nausea but he still felt "dizzy" and described this as "overall fatigue". A set of orthostatic vital signs were done and he was orthostatic. He could not maneuver the stairs on 02/06, and I witnessed him to stumble and even needed cuing as to which foot to use. So he was discharged from Swing bed status and placed in the hospital in Observation status. After definitely discontinuing the Entresto and receiving 2 L of iv fluids his dizziness resolved (3) Ataxia While he was in Swing bed status, the patient worked with PT and OT and achieved walking independently, using a front-wheeled walker. He needed to accomplish walking 3 steps up a staircase that has no handrails, which is what he has to maneuver to enter his home. He worked with a cane, not a quad cane, to maneuver stairs here. Finally, he was able to safely maneuver the stairs when he was not dizzy or orthostatic. He was advised that he needs further home health PT and OT but he declined that. This is a man who recently used to walk 1 mile a day, so he should get outpatient PT and OT. (4) Garbled speech This had never really improved, since his first presentation here a month ago. He had an official linguistic eval done by Speech Therapy on January 20, when he was an Inpatient before even going to Swing Bed status, and the recommendation from was to undergo linguistic therapy which we do not have here. He should get outpatient Speech/linguistic therapy after Dch. (5)Hypertension His BP was mostly controlled, averaging 130's/80's. At home he had been on Amlodipine and Entresto, before the last inpatient stay. The Entresto was stopped. However the pharmacist brought to my attention that the patient's Entresto was actually being given (it was re-started by a different provider). The patient has no indication to be on Entresto which is a second line of therapy for patients with systolic heart failure. This patient has normal LVEF and no history of systolic heart failure, and he is not on Coreg or Spironolactone. I have asked our pharmacist to look into which outpt provider ordered this Entresto in order to see if there is part of his history that we are not aware of. Entresto was ordered by Jose Nayak at Cardiology . I called that number Thu02/06/23 at 4:40 PM, and there was no answer. I suspect that the last few days in Swing Bed status when he had dizziness, this was being caused by Entresto causing orthostasis. His Amlodipine was continued and dose adjusted. He was discharged home and told not to use Entresto, only Amlodipine 5 mg daily, for BP control. (6) Lymphoma He was continued on patient's own med Venclexta. (7) Atrial fibrillation His HR was under control on no HR-slowing meds. We kept him on his anticoagulant without any changes. - ALLERGIES Allergies/Adverse Reactions: Allergies Allergy/AdvReac Type Severity Reaction Status Date / Time corn Allergy Respiratory Verified 01/17/23 14:16 peanut Allergy Respiratory Verified 01/17/23 14:16 - MEDICATIONS Home Medications: Ambulatory Orders Medication Instructions Recorded Confirmed Albuterol Sulf [Ventolin Hfa 1 - 2 puffs INH Q4HR PRN #1 each 01/16/23 02/06/23 Inhaler] Apixaban [Eliquis] 5 mg PO BID 01/17/23 02/06/23 Omeprazole Magnesium 20 mg PO QDAC 01/19/23 02/06/23 Venetoclax [Venclexta] 400 mg PO DAILYWM 01/19/23 02/06/23 Loperamide [Imodium] 2 mg PO QID PRN #10 cap 05/18/23 06/02/23 Simethicone [Mylicon] 80 mg PO 0900,1300,1800,2100 PRN 01/22/23 02/06/23 #10 tab Amlodipine Besylate [Norvasc] 5 mg PO DAILY #60 tablet 02/08/23 Nystatin [Nystop] 1 applic TOP BID each 02/08/23 - PHYSICAL EXAM AT DISCHARGE General Appearance: positive: No acute distress, Alert Eyes Bilateral: positive: EOMI, Other (Bilateral ptosis) ENT: positive: ENT inspection nml, No signs of dehydration, Other (Poor dentition, many missing teeth) Neck: positive: Nml inspection, No JVD Respiratory: positive: No respiratory distress, Breath sounds nml Cardiovascular: positive: Regular rate & rhythm, No murmur Abdomen: positive: Non-tender, Nml bowel sounds, No distention Skin: positive: Warm, Dry Extremities: positive: Non-tender, No pedal edema Neurologic/Psychiatric: positive: Oriented x3, Motor nml, Other (Speech is intermittently garbled, with very poor enunciation) - LABS Result Diagrams: 02/06/23 13:52 02/08/23 05:15 - FOLLOW UP Follow Up: See PCP in the next 1 to 2 weeks for hospital follow-up visit - TIME SPENT Time Spent in Discharge (Minutes): 30
[2023-02-08] MEDS ORDERED: POTASSIUM BICARB 25 MEQ TABLET PO ONE (07:59)
[2023-02-08 08:12] VITALS: BP 158/92
[2023-02-08] MEDS ORDERED: amLODIPine 5 MG TABLET PO SCH (09:00)
[2023-02-08] MEDS: VENETOCLAX 100 MG PO SCH (09:04)
[2023-02-08] MEDS: APIXABAN 5 MG TABLET PO SCH (09:04)
[2023-02-08] MEDS: NYSTATIN POWDER 15 GM TOP SCH (09:05)
== END 2023-02-08 11:20 | disposition home or self-care (01) ==
LOC: MS2 13:37
PROVIDERS: ADMIT Internal Medicine; ATTEND Internal Medicine
DX: I95.1 Orthostatic hypotension (principal); R42 Dizziness and giddiness; R79.89 Other specified abnormal findings of blood chemistry; R53.83 Other fatigue; R27.0 Ataxia, unspecified; R47.89 Other speech disturbances; I10 Essential (primary) hypertension; C85.90 Non-Hodgkin lymphoma, unspecified, unspecified site; I48.91 Unspecified atrial fibrillation; Z79.01 Long term (current) use of anticoagulants; I25.10 Atherosclerotic heart disease of native coronary artery without angina pectoris; Z95.5 Presence of coronary angioplasty implant and graft; R53.1 Weakness; T46.5X5A Adverse effect of other antihypertensive drugs, initial encounter; Y92.239 Unspecified place in hospital as the place of occurrence of the external cause
CPT/HCPCS: 36415; 80048; 80053; 81001; 83735; 85025; 97162; 97530; A9270; G0378; 87086

== ENCOUNTER 2023-12-31 14:56 | Outpatient (CLI) | payer OTHER | END 2023-12-31 23:59 | disposition critical access hospital (66) | LOC: EMS 14:56 | DX: M25.552 Pain in left hip (principal); W18.39XA Other fall on same level, initial encounter; Y93.01 Activity, walking, marching and hiking; Y92.481 Parking lot as the place of occurrence of the external cause | CPT/HCPCS: A0425; A0429 ==

== ENCOUNTER 2023-12-31 15:13 | Emergency (ER) | payer MEDICARE, OTHER ==
--- NOTE | 2023-12-31 15:24 | ED Physician Documentation ---
PD HPI Fall - Stated complaint Stated Complaint: GLF - History obtained from History obtained from: Patient, EMS - History of Present Illness Mechanism of injury: Lost balance Fall distance: Standing position Where injury occurred: Street (Reportedly was walking on a slight incline and area traversing it and lost balance and fell to the left. Bystanders were with him promptly. No reported LOC. Pain in the hip and rest. He is on a blood thinner. 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 No: Head (did not strike head, no LOC nor confusion.), Neck, Chest, Abdomen Quality of pain: Pain, Aching Associated symptoms: No: LOC, AMS, Weakness (no more than baseline weakness of right side from recent CVA a year ago.), Paresthesias Similar symptoms before: Has not had sx before Review of Systems Constitutional: denies: Fever, Chills Cardiac: denies: Chest pain / pressure GI: denies: Abdominal Pain PD PAST MEDICAL HISTORY - Past Medical History Cardiovascular: Coronary artery disease, Atrial fibrillation Respiratory: None Neuro: CVA Endocrine/Autoimmune: None GI: None : Other HEENT: None Psych: None Musculoskeletal: None Derm: None - Past Surgical History Cardiovascular: Coronary stent - Present Medications Home Medications: Ambulatory Orders Medication Instructions Recorded Confirmed Albuterol Sulf [Ventolin Hfa 1 - 2 puffs INH Q4HR PRN #1 each 01/16/23 02/06/23 Inhaler] Apixaban [Eliquis] 5 mg PO BID 01/17/23 02/06/23 Omeprazole Magnesium 20 mg PO QDAC 01/19/23 02/06/23 Venetoclax [Venclexta] 400 mg PO DAILYWM 01/19/23 02/06/23 Loperamide [Imodium] 2 mg PO QID PRN #10 cap 01/22/23 02/06/23 Simethicone [Mylicon] 80 mg PO 0900,1300,1800,2100 PRN 01/22/23 02/06/23 #10 tab Amlodipine Besylate [Norvasc] 5 mg PO DAILY #60 tablet 02/08/23 Nystatin [Nystop] 1 applic TOP BID each 02/08/23 - Allergies Allergies/Adverse Reactions: Allergies Allergy/AdvReac Type Severity Reaction Status Date / Time corn Allergy Respiratory Verified 12/31/23 15:26 peanut Allergy Respiratory Verified 12/31/23 15:26 - Social History Does the pt smoke?: No Smoking Status: Never smoker - POLST Patient has POLST: No PD ED PE NORMAL - Vitals Vital signs reviewed: Yes - General General: Alert and oriented X 3, No acute distress, Well developed/nourished - HEENT HEENT: Atraumatic - Neck Neck: Supple, no meningeal sign, No bony TTP, No adenopathy, C-Spine cleared by NEXUS criteria - Cardiac Cardiac: Other (/ murmur right chest). No: RRR (irregular but normal rate range) - Respiratory Respiratory: No respiratory distress, Clear bilaterally - Abdomen Abdomen: Soft, Non tender - Derm Derm: Normal color, Warm and dry - Extremities Extremities: No tenderness to palpate, Normal ROM s pain, Other (The patient does not have any tenderness in the hand. He is tender on the dorsal aspect of the distal radius. No snuffbox tenderness. The knee is mildly tender an teriorly without any effusion or deformity. Left hip is tender laterally but does have pain with rotation and impaction passively.) - Neuro Neuro: Alert and oriented X 3, Normal speech, Other (mild weakness right arm and leg, baseline from prior CVA per patient. ) Results - Vitals Vitals: Vital Signs - 24 hr 12/31/23 12/31/23 12/31/23 15:17 17:26 19:26 Temperature 36.1 C L Heart Rate 82 86 99 Respiratory 18 20 20 Rate Blood Pressure 155/120 H 161/99 H O2 Saturation 96 97 97 12/31/23 21:00 Temperature Heart Rate 104 H Respiratory 18 Rate Blood Pressure 173/110 H O2 Saturation 93 Oxygen O2 Source Room air - Labs Labs: Laboratory Tests 12/31/23 12/31/23 12/31/23 17:45 17:50 17:50 WBC 8.8 RBC 4.44 L Hgb 13.5 L Hct 42.4 MCV 95.5 H MCH 30.4 MCHC 31.8 L RDW 14.4 Plt Count 147 MPV 10.7 Neut # (Auto) 7.2 H Lymph # (Auto) 0.6 L [place] # (Auto) 0.9 Eos # (Auto) 0.0 Baso # (Auto) 0.0 Absolute Nucleated RBC 0.00 Nucleated RBC % 0.0 PT 13.7 H INR 1.3 H APTT 30.6 Sodium Potassium Chloride Carbon Dioxide Anion Gap BUN Creatinine Estimated GFR (MDRD) Glucose Calcium Total Bilirubin AST ALT Alkaline Phosphatase Total Protein Albumin Globulin Albumin/Globulin Ratio Lipase Urine Color Urine Clarity Urine pH Ur Specific [place] Urine Protein Urine Glucose (UA) Urine Ketones Urine Occult Blood Urine Nitrite Urine Bilirubin Urine Urobilinogen Ur Leukocyte Esterase Urine RBC Urine WBC Ur Squamous Epith Cells Urine Bacteria Urine Mucus Ur Microscopic Review Urine Culture Comments Nasal Adenovirus (PCR) NOT DETECTED Nasal B. parapertussis DNA (PCR) NOT DETECTED Nasal Coronavir 229E PCR NOT DETECTED Nasal Coronavir HKU1 PCR NOT DETECTED Nasal Coronavir NL63 PCR NOT DETECTED Nasal Coronavir OC43 PCR NOT DETECTED Nasal Enterovir/Rhinovir PCR NOT DETECTED Nasal Influenza B PCR NOT DETECTED Nasal Influenza A PCR NOT DETECTED Nasal Parainfluen 1 PCR NOT DETECTED Nasal Parainfluen 2 PCR NOT DETECTED Nasal Parainfluen 3 PCR NOT DETECTED Nasal Parainfluen 4 PCR NOT DETECTED Nasal RSV (PCR) NOT DETECTED Nasal B.pertussis DNA PCR NOT DETECTED Nasal C.pneumoniae (PCR) NOT DETECTED Que Human Metapneumo PCR NOT DETECTED Nasal M.pneumoniae (PCR) NOT DETECTED Nasal SARS-CoV-2 (PCR) NOT DETECTED 12/31/23 12/31/23 17:50 18:23 WBC RBC Hgb Hct MCV MCH MCHC RDW Plt Count MPV Neut # (Auto) Lymph # (Auto) [place] # (Auto) Eos # (Auto) Baso # (Auto) Absolute Nucleated RBC Nucleated RBC % PT INR APTT Sodium 141 Potassium 3.1 L Chloride 105 Carbon Dioxide 28 Anion Gap 8.0 BUN 19 Creatinine 1.0 Estimated GFR (MDRD) 73 L Glucose 128 H Calcium 10.0 Total Bilirubin 1.1 H AST 25 ALT 23 Alkaline Phosphatase 88 Total Protein 6.7 Albumin 4.5 Globulin 2.2 Albumin/Globulin Ratio 2.0 Lipase 38 Urine Color YELLOW Urine Clarity CLEAR Urine pH 6.5 Ur Specific [place] 1.015 Urine Protein 30 H Urine Glucose (UA) NEGATIVE Urine Ketones TRACE Urine Occult Blood NEGATIVE Urine Nitrite NEGATIVE Urine Bilirubin NEGATIVE Urine Urobilinogen 0.2 (NORMAL) Ur Leukocyte Esterase NEGATIVE Urine RBC None Seen Urine WBC 0-3 Ur Squamous Epith Cells NONE SEEN Urine Bacteria None Seen Urine Mucus Few Strands Ur Microscopic Review INDICATED Urine Culture Comments NOT INDICATED Nasal Adenovirus (PCR) Nasal B. parapertussis DNA (PCR) Nasal Coronavir 229E PCR Nasal Coronavir HKU1 PCR Nasal Coronavir NL63 PCR Nasal Coronavir OC43 PCR Nasal Enterovir/Rhinovir PCR Nasal Influenza B PCR Nasal Influenza A PCR Nasal Parainfluen 1 PCR Nasal Parainfluen 2 PCR Nasal Parainfluen 3 PCR Nasal Parainfluen 4 PCR Nasal RSV (PCR) Nasal B.pertussis DNA PCR Nasal C.pneumoniae (PCR) Que Human Metapneumo PCR Nasal M.pneumoniae (PCR) Nasal SARS-CoV-2 (PCR) - Rads (name of study) left wrist Relevant Findings:: Prelim report reviewed, EMP independent interpretation of test (no fractures) left knee Relevant Findings:: Prelim report reviewed, EMP independent interpretation of test (no fractures. Arthritic changes. ) head CT Relevant Findings:: Prelim report reviewed, EMP independent interpretation of test (no acute ICH) left hip Relevant Findings:: Prelim report reviewed, EMP independent interpretation of test (trochanteric fracture with question of extension to lesser side. Suggested CT. ) left hip CT Relevant Findings:: Prelim report reviewed (Greater trochanteric changes, and apparent extension intertrochanteric nondisplaced. ), EMP independent interpretation of test PD Medical Decision Making - ED course Complexity details: reviewed results (The wrist x-ray does not have any fractures in the area of tenderness. Prior hand fracture with callus is noted. He is not tender in that area. Knee x-ray without fracture. The hip is showing trochanteric changes with question of lesser troches Irma injury as well. CT was done.), considered differential (The patient fell to the left side. He felt fine prior to that. Did not hit his head but he is on anticoagulants due to chronic A-fib. CT of the head was performed without any acute bleeding or findings. He has pain on the left wrist hip and knee. 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 I talked with Ortho from [facility], who will review the CT images and call back. Presume will accept the transfer. [facility] does have beds. ) Reviewed Lab Results: The patient has an accidental fall with a nondisplaced left intertrochanteric fracture. You do not have Ortho on-call for the next week. This is too long for this to wait. We are calling to other facilities. [facility] does have beds available. I talked to Dr. Lopez who is on-call for Ortho. We are pushing the images for him to review. Reasonably so he wants to review the images prior to excepting. I did advise him of the patient's comorbidities and being on the Eliquis. The patient's last dose was this morning. He is not to be getting it this evening. I did order basic labs otherwise. Patient will be given some pain medicine. 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 Awaiting call back from Ortho at [facility]. Pictures images pushed. Care to Dr. Lawson. Departure - Departure Disposition: 02 Transfer Acute Care Hosp Clinical Impression: Fall from slip, trip, or stumble, Intertrochanteric fracture of left hip, Antic oagulant long-term use, Atrial fibrillation, chronic, Left wrist sprain, Status post CVA Condition: Stable Forms: PCP List
--- NOTE | 2023-12-31 16:19 | CT Report ---
PROCEDURE: Head WO INDICATIONS: fall, on DOAC TECHNIQUE: Noncontrast 4.5 mm thick angled axial sections acquired from the foramen magnum to the vertex. For r adiation dose reduction, the following was used: automated exposure control, adjustment of mA and/or kV according to patient size. COMPARISON: None. FINDINGS: Image quality: Excellent. CSF spaces: Basal cisterns are patent. No extra-axial fluid collections. Ventricles are normal in size and shape. Basilar artery ectasia is present measuring 6 mm diameter. Brain: No midline shift. No intracranial masses or hemorrhage. Mild diffuse cerebral volume loss. M ild degree of patchy low density within the periventricular and cortical white matter. Blanca-white m atter interface is normal. Small chronic left cerebellar infarct. Skull and face: Calvarium and visualized facial bones are intact, without suspicious lesions. Sinuses: Visualized sinuses and mastoids are clear. IMPRESSION: 1. Volume loss and small vessel ischemic disease. 2. No acute process. No recent infarct. 3. Small chronic left cerebellar infarct. Reviewed by: Laurence Salguero MD on 12/31/2023 4:17 PM PDT Approved by: Laurence Salguero MD on 12/31/2023 4:17 PM PDT Station ID: [id number]
--- NOTE | 2023-12-31 16:29 | XRAY Report ---
PROCEDURE: Wrist 3+V LT INDICATIONS: fall, wrist pain TECHNIQUE: 3 views of the wrist were acquired. COMPARISON: None. FINDINGS: Bones: Ill-defined appearance of mildly displaced fifth mid metacarpal fracture. Ulna styloid fractu re is present. Arthritic changes are present. Soft tissues: No suspicious soft tissue calcifications or masses. IMPRESSION: Ill-defined fifth mid metacarpal fracture. X-ray hand is recommended for further evaluation. Reviewed by: Sharri Meza MD on 12/31/2023 4:28 PM PDT Approved by: Sharri Meza MD on 12/31/2023 4:28 PM PDT Station ID: [id number]
--- NOTE | 2023-12-31 16:30 | XRAY Report ---
PROCEDURE: Knee 3V LT INDICATIONS: fall, knee pain TECHNIQUE: 3 views of the knee(s) were acquired. COMPARISON: None. FINDINGS: Bones: No fractures or dislocations. No suspicious bony lesions. Moderate tricompartmental arthri tic change. Soft tissues: Mild knee joint effusion. No suspicious soft tissue calcifications or masses. IMPRESSION: Mild effusion. No visualized acute fracture or dislocation. However, occult injury cannot be excluded . Recommend short interval imaging follow-up in 7-10 days as clinically indicated for additional eval uation. Reviewed by: Sharri Meza MD on 12/31/2023 4:29 PM PDT Approved by: Sharri Meza MD on 12/31/2023 4:29 PM PDT Station ID: [id number]
--- NOTE | 2023-12-31 16:33 | XRAY Report ---
PROCEDURE: Hip w/Pelvis 2-3V LT INDICATIONS: fall, hip pain TECHNIQUE: 2 views of the hip were acquired. COMPARISON: None. FINDINGS: Bones: There is an ill-defined lucency seen on AP view overlying the left greater trochanter. Second judy to overlying soft tissues, it is not well seen on lateral view.. No suspicious bony lesions. A rthritic changes are present within the hip as well as lower lumbar spine. Soft tissues: No suspicious soft tissue calcifications or masses. IMPRESSION: Suspected greater trochanter fracture. It is not well visualized on lateral view. CT may be obtained for further evaluation. Reviewed by: Sharri Meza MD on 12/31/2023 4:32 PM PDT Approved by: Sharri Meza MD on 12/31/2023 4:32 PM PDT Station ID: [id number]
--- NOTE | 2023-12-31 17:15 | CT Report ---
PROCEDURE: Lower Extremity LT WO INDICATIONS: trochanter vs intertroch fx on xray TECHNIQUE: Noncontrast 3-mm axial sections acquired from the distal tibial shaft to the talar dome, with coronal and sagittal reformats. For radiation dose reduction, the following was used: automated exposure c ontrol, adjustment of mA and/or kV according to patient size. COMPARISON: Left hip radiographs 12/31/2023 FINDINGS: Image quality: Excellent. Bones: Minimally displaced and mildly comminuted fracture of the left greater trochanter. There is u p to 3 mm proximal displacement of the greater trochanter fracture fragment. There appears to be a oshea btle nondisplaced fracture involving the lesser trochanter, especially along the posterior cortex (im ages 66-68 of series 10). Fracture line connecting the two areas is suspected but not definitely visu alized. Included left pelvic bones are intact. Degenerative changes are seen in the left hip, left sa croiliac joint, and included spine. Soft tissues: No significant left hip effusion. Mild saphenous edema is seen overlying the left grea ter trochanter. The musculature surrounding the left hip is normal in bulk. There is a moderate fat-c ontaining left inguinal hernia. Calcified material seen in the dependent portion of the bladder. A fe w diverticula are seen in the colon without acute inflammatory changes. IMPRESSION: 1.Minimally displaced and mildly comminuted fracture of the left greater trochanter. Additional nondi splaced fracture line is seen along the lesser trochanter and there is suspected intertrochanteric co mmunication between the 2 fractures that is not well visualized. 2.Mild saphenous edema overlying the greater trochanter. No significant soft tissue hematoma is seen. 3.Moderate fat-containing left inguinal hernia. Reviewed by: Dimas Bruner MD on 12/31/2023 5:14 PM PDT Approved by: Dimas Bruner MD on 12/31/2023 5:14 PM PDT Station ID: [id number]
[2023-12-31 18:02] LABS: BASOPHILS % (AUTO) 0.2 %; HCT - HEMATOCRIT 42.4 % (42.0-52.0); HGB - HEMOGLOBIN 13.5 g/dL (14.0-18.0); LYMPHOCYTES # (AUTO) 0.6 10^3/uL (1.5-3.5); LYMPHOCYTES % (AUTO) 7.1 %; MEAN CORPUSCULAR HEMOGLOBIN 30.4 pg (27.0-31.0); MEAN CORPUSCULAR HGB CONC 31.8 g/dL (32.0-36.0); MEAN CORPUSCULAR VOLUME 95.5 fL (80.0-94.0); MEAN PLATELET VOLUME 10.7 fL (7.4-11.4); MONOCYTES # (AUTO) 0.9 10^3/uL (0.0-1.0); MONOCYTES % (AUTO) 10.7 %; NEUTROPHILS # (AUTO) 7.2 10^3/uL (1.5-6.6); NEUTROPHILS % (AUTO) 81.7 %; PLT - PLATELET COUNT 147 10^3/uL (130-450); RED BLOOD COUNT 4.44 10^6/uL (4.70-6.10); RED CELL DISTRIBUTION WIDTH 14.4 % (12.0-15.0); WHITE BLOOD COUNT 8.8 x10^3/uL (4.8-10.8)
[2023-12-31 18:07] LABS: PARTIAL THROMBOPLASTIN TIME 30.6 secs (24.9-33.3)
[2023-12-31 18:11] LABS: INR 1.3 (0.8-1.2); PT - PROTHROMBIN TIME 13.7 secs (9.9-12.6)
[2023-12-31 18:12] LABS: ALBUMIN 4.5 g/dL (3.2-5.5); BILIRUBIN,TOTAL 1.1 mg/dL (0.2-1.0); POTASSIUM 3.1 mmol/L (3.5-4.5); TOTAL PROTEIN 6.7 g/dL (6.4-8.9)
--- NOTE | 2023-12-31 18:16 | XRAY Report ---
PROCEDURE: Chest 1V INDICATIONS: chest pain TECHNIQUE: One view of the chest was acquired. COMPARISON: Chest radiograph 01/16/2023. FINDINGS: Surgical changes and devices: None. Lungs and pleura: No pleural effusions or pneumothorax. Lungs are clear. Patient is slightly rotate d towards the right. Mediastinum: Mediastinal contours appear normal. Heart size is normal. Bones and chest wall: No suspicious bony lesions. Overlying soft tissues appear unremarkable. IMPRESSION: No acute cardiopulmonary process. Reviewed by: Dimas Bruner MD on 12/31/2023 6:15 PM PDT Approved by: Dimas Bruner MD on 12/31/2023 6:15 PM PDT Station ID: [id number]
[2023-12-31 18:29] LABS: BILIRUBIN,URINE NEGATIVE (NEGATIVE); GLUCOSE, URINE (UA) NEGATIVE (NEGATIVE); KETONES,URINE (UA) TRACE mg/dL (NEGATIVE); LEUKOCYTE ESTERASE, URINE NEGATIVE (NEGATIVE); NITRITE,URINE NEGATIVE (NEGATIVE); OCCULT BLOOD,URINE NEGATIVE (NEGATIVE); PH,URINE 6.5 PH (5.0-7.5); PROTEIN,URINE 30 mg/dL (NEGATIVE); UROBILINOGEN,URINE 0.2 (NORMAL) E.U./dL (NORMAL)
[2023-12-31 18:30] LABS: CLARITY,URINE CLEAR (CLEAR)
[2023-12-31 18:41] LABS: BACTERIA,URINE None Seen /HPF (None Seen); MUCUS,URINE Few Strands; RBC,URINE None Seen /HPF (0-5); SQUAMOUS EPITHELIAL CELL,UR NONE SEEN (<= Few); WBC,URINE 0-3 /HPF (0-3)
[2023-12-31 18:51] LABS: B. PARAPERTUSSIS- RESP PCR PAN NOT DETECTED; B. PERTUSSIS- RESP PCR PANEL NOT DETECTED; C. PNEUMONIAE- RESP PCR PANEL NOT DETECTED; CORONAVIRUS 229E-RESP PCR NOT DETECTED; CORONAVIRUS HKU1-RESP PCR NOT DETECTED; CORONAVIRUS NL63-RESP PCR NOT DETECTED; CORONAVIRUS OC43-RESP PCR NOT DETECTED; HUMAN METAPNEUMOVIRUS NOT DETECTED; INFLUENZA A- RESP PCR PANEL NOT DETECTED; INFLUENZA B - RESP PCR PANEL NOT DETECTED; M. PNEUMONIAE- RESP PCR PANEL NOT DETECTED; PARAINFLUENZA VIRUS 1 NOT DETECTED; PARAINFLUENZA VIRUS 2 NOT DETECTED; PARAINFLUENZA VIRUS 3 NOT DETECTED; PARAINFLUENZA VIRUS 4 NOT DETECTED; RHINOVIRUS/ENTEROVIRUS NOT DETECTED; RSV- RESP PCR PANEL NOT DETECTED; SARS-CoV-2 -RESP PCR PANEL NOT DETECTED
[2023-12-31] MEDS: POTASSIUM CHLOR 10 MEQ/100 ML 10 MEQ/100 ML BAG IV ONE (18:58)
[2023-12-31] MEDS: POTASSIUM BICARB 25 MEQ TABLET PO STA (18:58)
[2023-12-31] MEDS: LACTATED RINGERS 1,000 ML IV STA (18:58)
[2023-12-31] MEDS: MORPHINE 2 MG/ML CARPUJECT IVP STA (18:59)
--- NOTE | 2023-12-31 22:15 | ED Physician Documentation ---
ED Addendum - Addendum Addendum: 12/31/23 22:12 Patient was signed out to me by Dr. Rivas awaiting potential transfer for possible hip fracture on CT scan. The orthopedist that Dr. Rivas was speaking with states that he could not receive any of the images, therefore would not accept in transfer. Images were attempted to be sent multiple times. Therefore we started to contact other facilities, [facility], spoke with Dr. Huynh, orthopedist who was able to review all the images as well as the CT scan. Does not see any clear communication between the greater and lesser trochanteric fractures. The patient does not have much pain. Does have pain with external rotation, but not much with flexion extension of the hip. Neurovascular intact. Dr. Huynh recommends toe-touch weightbearing on the left lower extremity with a four-wheel walker. Recommends following up with orthopedics in 7 to 10 days for repeat x-rays. The patient is comfortable with this plan, does not want to be transferred to [place] for potential surgery. He would like to attempt to be toe-touch weightbearing on the left lower extremity. Pain is well-controlled here. Will prescribe pain medication for home. Patient counseled regarding signs and symptoms for which I believe and urgent re-evaluation would be necessary. Patient with good understanding of and agreement to plan and is comfortable going home at this time This document was made in part using voice recognition software. While efforts are made to proofread this document, sound alike and grammatical errors may occur. Departure - Departure Disposition: 01 Home, Self Care Clinical Impression: Anticoagulant long-term use, Atrial fibrillation, chronic, Status post CVA Fall from slip, trip, or stumble Qualifiers: Encounter type: initial encounter Qualified Code(s): W01.0XXA - Fall on same level from slipping, tripping and stumbling without subsequent striking against object, initial encounter Left wrist sprain Qualifiers: Encounter type: initial encounter Qualified Code(s): S63.502A - Unspecified sp rain of left wrist, initial encounter Greater trochanter fracture Qualifiers: Encounter type: initial encounter Fracture type: closed Fracture alignment: nondisplaced Laterality: left Qualified Code(s): S72.115A - Nondisplaced fracture of greater trochanter of left femur, initial encounter for closed fracture Condition: Good Instructions: ED Fx Lower Ext Follow-Up: Bebeto Sharp MD [Provider Admit Priv/Credential] - Within 1 week Prescriptions: Oxycodone HCl/Acetaminophen [Percocet 5-325 mg Tablet] 1 - 2 each PO Q6H PRN #20 tablet MDD 6 tabs PRN Reason: pain Comments: [facility] [place]. As we discussed there appears to be a greater trochanteric fracture on your left hip. There is likely a lesser trochanteric fracture as well, though there is a suspected communication between these 2 fractures, it is not visible on your CT scan. I spoke with the orthopedist at [facility], Dr. Huynh, who reviewed your CAT scan. He recommends toe-touch weightbearing on the left leg and use of a 4 wheeled walker. He recommends follow-up with orthopedics in about a week for repeat x-rays. You have indicated that you are comfortable with this plan and would prefer to avoid surgery if possible. Please return for increasing pain, swelling, other new or worrisome symptoms. Please call orthopedics tomorrow for an appointment next week. I am prescribing a short course of narcotic pain medication for you. These are potentially dangerous and addictive medications that should be used carefully. These medications may constipate you. Take an [id number] stool softener (docusate) twice daily with plenty of water while taking these medications. If you go 24 hours without a bowel movement, take [id number] miralax, per package instructions. Do not drink or drive while taking these medications. If you received narcotic or sedating medications while in the emergency department, do not drive for 24 hours. Store this medication in a safe, secure place and out of reach of children. It is a violation of federal law to give or sell this medication to another person or to use in a manner other than prescribed. The ED will not refill narcotic prescriptions, including prescriptions lost or stolen. To dispose of unwanted medications: 1. [facility] at [address] in [place] has a medication drop box. They accept prescription medications (in pill form) Thursday through Thursday 9:00 a.m. to 5:00 p.m. 2. [facility] [employer] accepts prescription medications (in pill form only) for disposal year round. Call for more information. 3. Contact the [facility] for the next [facility] sponsored prescription drug collection event. , [phone], or [phone]; Forms: PCP List
[2023-12-31] MEDS: oxyCODONE 5 MG TABLET PO STA (22:40)
--- NOTE | 2023-12-31 23:21 | ED Physician Documentation ---
ED Addendum - Addendum Addendum: 12/31/23 23:20 Patient endorsed to me by Dr. Tom pending road test. He was unable to ambulate therefore will board here in the ED. Plan to have SW see him in the AM to facilitate disposition. 01/01/24 00:05 EKG at 23:39 shows afib with rate 108. staff registered nurse ordered ekg due to concern of tachycardia. patient has known history of afib and missed his nighttime meds. Oral metoprolol provided. 01/01/24 06:55 Will endorse to incoming daytime ED MD at 7am shift change pending SW.
[2024-01-01] MEDS: METOPROLOL TARTRATE 50 MG TABLET PO STA (00:28)
[2024-01-01] MEDS: ONDANSETRON ODT 4 MG TABLET TL STA (05:18)
[2024-01-01] MEDS: PANTOPRAZOLE 40 MG TABLET PO SCH (06:01)
[2024-01-01] MEDS: ACETAMINOPHEN 500 MG TABLET PO PRN (06:02)
--- NOTE | 2024-01-01 08:37 | ED Physician Documentation ---
ED Addendum - Addendum Addendum: 01/01/24 Patient care is assumed at shift change. Patient is awaiting social work e valuation along with physical therapy and Occupational Therapy evaluations. Patient was seen yesterday after a fall and found to have a nonoperative left hip fracture. There was initially a concern that perhaps it was an intertrochanteric fracture but images were reviewed by [facility] and they do not see communication between the greater and lesser trochanter.Therefore it was deemed that no transfer is needed. We do not have orthopedic surgery coverage here until January 05. On my evaluation this morning patient is sitting on the edge of his bed with his legs hanging down and eating from his breakfast tray. He states that in this position he is does not have any pain. Patient had pain in the left hand during PT. On review of images of his left wrist he appears to have a metacarpal fracture. Will place in ulnar gutter splint. 01/01/24 16:13 D/W Dr. Harper for extended stay program. Departure - Departure Disposition: 30 Still a Pt Return for OP Sv Clinical Impression: Anticoagulant long-term use, Atrial fibrillation, chronic, Status post CVA, Fracture of metacarpal of left hand, closed Fall from slip, trip, or stumble Qualifiers: Encounter type: initial encounter Qualified Code(s): W01.0XXA - Fall on same level from slipping, tripping and stumbling without subsequent striking against object, initial encounter Left wrist sprain Qualifiers: Encounter type: initial encounter Qualified Code(s): S63.502A - Unspecified sprain of left wrist, initial encounter Greater trochanter fracture Qualifiers: Encounter type: initial encounter Fracture type: closed Fracture alignment: nondisplaced Laterality: left Qualified Code(s): S72.115A - Nondisplaced fracture of greater trochanter of left femur, initial encounter for closed fracture Condition: Good Instructions: ED Fx Lower Ext Follow-Up: Bebeto Sharp MD [Provider Admit Priv/Credential] - Within 1 week Prescriptions: Oxycodone HCl/Acetaminophen [Percocet 5-325 mg Tablet] 1 - 2 each PO Q6H PRN #20 tablet MDD 6 tabs PRN Reason: pain Comments: [facility] [place]. As we discussed there appears to be a greater trochanteric fracture on your left hip. There is likely a lesser trochanteric fracture as well, though there is a suspected communication between these 2 fractures, it is not visible on your CT scan. [facility] Dr[facility]yn[facility], who reviewed your CAT scan. He recommends toe-touch weightbearing on the left leg and use of a 4 wheeled walker. He recommends follow-up with orthopedics in about a week for repeat x-rays. You have indicated that you are comfortable with this plan and would prefer to avoid surgery if possible. Please return for increasing pain, swelling, other new or worrisome symptoms. Please call orthopedics tomorrow for an appointment next week. I am prescribing a short course of narcotic pain medication for you. These are potentially dangerous and addictive medications that should be used carefully. These medications may constipate you. Take an frri-rps-dkrmdnc stool softener (docusate) twice daily with plenty of water while taking these medications. If you go 24 hours without a bowel movement, take [id number] miralax, per package instructions. Do not drink or drive while taking these medications. If you received narcotic or sedating medications while in the emergency department, do not drive for 24 hours. Store this medication in a safe, secure place and out of reach of children. It is a violation of federal law to give or sell this medication to another person or to use in a manner other than prescribed. The ED will not refill narcotic prescriptions, including prescriptions lost or stolen. To dispose of unwanted medications: 1. [facility] at [address] in [place] has a medication drop box. They accept prescription medications (in pill form) Thursday through Thursday 9:00 a.m. to 5:00 p.m. 2. [facility] [employer] accepts prescription medications (in pill form only) for disposal year round. Call for more information. 3. Contact the [facility] for the next [employer] sponsored prescription drug collection event. , [phone], or [phone]; Forms: PCP List
[2024-01-01 17:14] VITALS: BP 113/82; O2SAT 98
== END 2024-01-01 17:45 | disposition still patient (30) ==
LOC: EDUNIT# → ED 15:13
DX: S72.142A Displaced intertrochanteric fracture of left femur, initial encounter for closed fracture (principal); S63.502A Unspecified sprain of left wrist, initial encounter; M79.642 Pain in left hand; W01.0XXA Fall on same level from slipping, tripping and stumbling without subsequent striking against object, initial encounter; Y93.01 Activity, walking, marching and hiking; Y92.414 Local residential or business street as the place of occurrence of the external cause; I48.91 Unspecified atrial fibrillation; I25.10 Atherosclerotic heart disease of native coronary artery without angina pectoris; R90.82 White matter disease, unspecified; Z79.01 Long term (current) use of anticoagulants; Z86.73 Personal history of transient ischemic attack (TIA), and cerebral infarction without residual deficits; Z79.899 Other long term (current) drug therapy
CPT/HCPCS: 36415; 70450; 71045; 73110; 73502; 73562; 73700; 80053; 81001; 83690; 85025; 85610; 85730; 87633; 93005; 97162; 97166; 99284; A9270; J7120; Q0162; 81003; 87086